=== PATIENT | male | born 1955 | race Caucasian/White ===

== ENCOUNTER → 2020-01-05 09:32 | Outpatient (CLI) | payer MEDICARE, SELFPAY ==
[2018-08-03 10:42] VITALS: BMI 19.9
[2020-01-05 09:46] LABS: Mucous, Urine 0 SEEN /hpf (<or=2+); Red Blood Cells-Urine 0 SEEN /hpf (0-5); Squamous Epithelial Cells - UA 0 SEEN /hpf (0-5)
[2020-01-05 13:00] LABS: Absolute Lymphocyte Count 1.95 X10^3/uL (0.83-4.51); Absolute Neutrophil Count 3.5 X10^3/uL (2.0-7.7); Basophil# 0.03 X10^3/uL; Basophil% 0.5 % (0-1); Eosinophil# 0.06 X10^3/uL; Hematocrit 49.5 % (40-54); Hemoglobin 15.7 g/dL (13.0-16.5); Lymphocyte # 1.95 X10^3/ul (4.0); Lymphocyte % 31.1 % (19-41); Mean Corp Hgb Conc 31.7 g/dL (32-36); Mean Corpuscular Hgb 27.6 pg (27.0-32.0); Mean Corpuscular Volume 87.1 fL (80-94); Mean Platelet Vol. 10.8 fl (6.2-12.0); Monocyte# 0.74 X10^3/uL; Monocyte% 11.8 % (0-10); NRBC Flagged by Analyzer 0 % (0-5); Neutrophil # 3.48 X10^3/uL (2.7-7.7); Neutrophil % 55.4 % (47-70); Platelet Count 267 K/mm3 (150-450); RBC Distribution Width CV 13.3 % (11.6-14.6); RBC Distribution Width SD 42.6 fl (35.1-43.9); Red Blood Count 5.68 M/mm3 (4.6-6.2); White Blood Count 6.3 K/mm3 (4.4-11.0)
[2020-01-05 13:11] LABS: ALB/GLOB Ratio 0.9 RATIO (0.9-2.4); AST(SGOT) 19 U/L (15-37); Alanine Aminotransfer ALT/SGPT 34 U/L (16-61); Albumin, Serum 3.7 g/dL (3.2-5.0); Alkaline Phosphatase 142 U/L (45-117); Anion Gap 7 (5-15); BUN 18 mg/dL (7-18); BUN/Creat Ratio 13.1 RATIO (10-20); Calcium,Total 9.4 mg/dL (8.5-10.1); Chloride 104 mmol/L (98-107); Cholesterol 199 mg/dL (200); Creatinine, Serum 1.37 mg/dL (0.70-1.30); EST Glomerular Filtration Rate 55 mL/min (>60); Est Glom Filt Rate - Afr Amer 67 mL/min (>60); Globulin 4.1 g/dL (2.2-4.2); Glucose 101 mg/dL (74-106); High Density Lipoprotein 40 mg/dL; PSA,Total - Annual Screen 0.95 ng/mL (0.00-4.00); Potassium 4.1 mmol/L (3.5-5.1); Protein, Total 7.8 g/dL (6.4-8.2); Sodium Level 139 mmol/L (136-145); Triglycerides 128 mg/dL; Very Low Density Lipoprotein 26 mg/dL (5-40)
[2020-01-05 13:17] LABS: Color, Urine Yellow (Yellow); Glucose, Dipstick Normal (Normal); Ketone-Dipstick Negative (Negative); Leukocyte Esterase-Dipstick 25 /ul (Negative); Nitrite-Dipstick Negative (Negative); Occult Blood-Urine 10 /ul (Negative); Protein-Dipstick 15 mg/dl (Negative); Specific Gravity, Urine 1.015 (1.002-1.030); Urine Bilirubin Dipstick Negative (Negative); Urine Clarity Clear (Clear); Urine Urobilinogen Normal (Normal); Urine pH 6.5 (5.0 - 8.0)
[2020-01-05 13:33] LABS: Bacteria RARE /hpf (None Seen); White Blood Cells 0-5 SEEN /hpf (0-5)
== END ==
PROVIDERS: PCP Family Medicine; Visit Provider Family Medicine
DX: R06.09 Other forms of dyspnea (principal); R80.9 Proteinuria, unspecified; R03.0 Elevated blood-pressure reading, without diagnosis of hypertension; Z12.5 Encounter for screening for malignant neoplasm of prostate
CPT/HCPCS: 36415; 80053; 80061; 81001; 84153; 85025; G0103

== ENCOUNTER 2021-04-30 21:06 | Emergency (ER) | payer MEDICARE, SELFPAY ==
[2021-04-30 21:07] VITALS: BP 152/86; PULSE 111; RESP 18; TEMP 35.5; O2SAT 98; BMI 22.1
--- NOTE | 2021-04-30 21:22 | EX.ED.GENINJ ---
HPI History of Present Illness Chief Complaint: Laceration Informant: patient Narrative Narrative: Patient presents with a scalp laceration. About 30 minutes ago he was working on a tractor when he stood up underneath of it and sustained a laceration to his scalp. He was able to control the bleeding at home. He is on no blood thinning medications. He denies any LOC, lightheadedness, dizziness or blurry vision. No neck or back pain. His last tetanus shot is unknown [facility] Medical History Back pain Home Medications cyclobenzaprine 10 mg tablet 10 mg PO TID PRN #30 tab 08/03/18 [Rx Last Taken Unknown] prednisone 20 mg tablet 20 mg PO DAILY #12 tab 08/03/18 [Rx Last Taken Unknown] Allergy/AdvReac Type Severity Reaction Status Date / Time No Known Allergies Allergy Verified 04/30/21 21:10 Surgical History History of hernia repair Social History Smoking Status: Never smoker alcohol intake: never ROS ROS ED Constitutional Constitutional ED: Denies chills or fever(s) Eyes Eyes: Denies blurry vision, change in vision or diplopia ENT ENT ED: Denies ear pain, rhinorrhea or sore throat Cardiovascular Cardiovascular: Denies chest pain or palpitations Respiratory/Chest Respiratory/Chest: Denies cough, dyspnea or sputum Gastrointestinal Gastrointestinal: Denies abdominal pain, diarrhea, nausea or vomiting Genitourinary Genitourinary ED: Denies dysuria, hematuria or urinary frequency Musculoskeletal Musculoskeletal: Denies back pain or neck pain Integumentary Reports other Details: Scalp laceration Neurologic Neurologic: Denies headache(s), numbness or weakness Psychiatric Psychiatric: Denies anxiety or depression Endocrine Endocrinology: Denies polydipsia or polyuria EXAM Physical Exam Const Vital Signs: 04/30/21 21:07 Temperature 96 F L Temperature Source Temporal Pulse Rate 111 H Respiratory Rate 18 Blood Pressure 152/86 H Blood Pressure Mean 108 Pulse Ox 98 Oxygen Delivery Method Room Air Positive well nourished and well developed General Appearance ED: well developed HEENT HEENT Narrative: There is a 3.5 cm scalp laceration in the right parietal area Eyes PERRL and EOMs intact bilaterally Neck full ROM Back/Spine no thoracic nor lumbar tenderness Back/Spine Narrative: No cervical spine tenderness Extremity normal to inspection Neuro oriented x3 and CN's II-XII intact bilaterally Sensorium / Orientation: alert Motor Exam: strength 5/5 throughout Psych mental status grossly normal Skin no rashes or lesions noted PROC Procedures Lacerations Scalp: Length: 1.38 in Depth: Skin Shape: Linear Prep: Chlorhexadine Number of Sutures/Juan: 4 Comment: Juan MDM MDM MDM Narrative Medical decision making narrative: The patient has 4 juan placed. His tetanus was updated. He will have juan out in 7 days. His neurologic exam is normal. I do not feel he requires any imaging studies at this time Discharge Plan Triage Chief Complaint: Laceration Other Complaint: Head Injury ED Provider: Kameron Frances Dx/Rx/DC Orders Clinical Impression: Laceration of scalp Instructions: ED Laceration: All Closures Prescriptions: No Action cyclobenzaprine 10 mg tablet 10 mg PO TID PRN (Reason: muscle spasm) Qty: 30 RF: 0 prednisone 20 mg tablet 20 mg PO DAILY Qty: 12 RF: 0 Primary Care Provider: Murphy Tyler Referrals: Murphy Tyler DO [Primary Care Provider] - Disposition Disposition: Home, self care
[2021-04-30] MEDS: Diphth,Pertuss(Acell),Tet Vac 0.5 ML Vial IM (21:28)
== END 2021-04-30 21:35 | disposition home or self-care (01) ==
PROVIDERS: Emergency Provider Emergency Medicine; PCP Family Medicine
DX: S01.01XA Laceration without foreign body of scalp, initial encounter (principal); W30.81XA Contact with agricultural transport vehicle in stationary use, initial encounter; Y93.9 Activity, unspecified; Y92.9 Unspecified place or not applicable
CPT/HCPCS: 12002; 90471; 90715; 99283

== ENCOUNTER → 2021-06-23 13:44 | Outpatient (CLI) | payer MEDICARE, SELFPAY ==
[2021-06-20 17:06] VITALS: BMI 22.4
--- NOTE | 2021-06-23 13:50 | RAD_ITS ---
STUDY: X-RAY - LUMBAR SPINE REASON FOR EXAM: Male, 65 years old. SEVERE L SIDE SCIATICA TECHNIQUE: For view(s) of the lumbar spine were obtained. COMPARISON: None FINDINGS: Please see the impression. RAD/L/S Spine Min 4 Views IMPRESSION: No acute fracture or subluxation in the lumbar spine. Mild multilevel lumbar spondylosis. No definite pars defect. No endplate erosion. Electronically Signed: Fran Anderson MD at 20:50 EDT Tel , Service support ,
== END ==
PROVIDERS: PCP Family Medicine; Referring Provider Family Medicine; Visit Provider Family Medicine
DX: M54.32 Sciatica, left side (principal)
CPT/HCPCS: 72110

== ENCOUNTER 2021-06-27 14:37 | Emergency (ER) | payer MEDICARE, SELFPAY ==
[2021-06-20 17:06] VITALS: BMI 22.4
[2021-06-27 14:38] VITALS: BP 101/76; PULSE 108; RESP 18; TEMP 36.2; O2SAT 97; BMI 21.7
--- NOTE | 2021-06-27 17:07 | EX.ED.DYSGE1 ---
HPI History of Present Illness Chief Complaint: Lower Extremity Injury Informant: patient and spouse/S.O. Narrative Narrative: 65-year-old male presents to the emergency department with left hip pain. Patient states that about a week ago he was on his riding lawnmower when he got pain in the left low back. He states the pain radiates down into the left hip and posteriorly down the leg. It is worse with prolonged sitting and standing. He states that he had x-rays done of his lumbar spine which I reviewed and shows mild multilevel lumbar spondylosis. Otherwise negative. He was started on Medrol Dosepak as well as 100 mg 3 times daily as needed of gabapentin. He went saw his primary care doctor this past Wednesday was given Flexeril and Dilaudid. He states that none of that is helping. He states he called back and into the office and they said if he got worse to come to emergency. He states that they wanted to do an MRI but has not been approved by insurance yet. He denies any bowel or bladder symptoms. No muscle strength loss. No sensory loss. PFSH PFS Medical History Back pain Home Medications gabapentin 300 mg PO TID #30 cap 06/27/21 [Rx Last Taken Unknown] ketorolac 10 mg PO Q8H PRN 5 Days #15 tab 06/27/21 [Rx Last Taken Unknown] oxycodone-acetaminophen 1 tab PO Q6H PRN PRN 5 Days #20 tablet 06/27/21 [Rx Last Taken Unknown] prednisone See Rx Instructions .ROUTE .COMPLEX #24 tablet 06/27/21 [Rx Last Taken Unknown] Allergy/AdvReac Type Severity Reaction Status Date / Time No Known Allergies Allergy Verified 06/27/21 14:38 Surgical History History of hernia repair Social History Smoking Status: Never smoker alcohol intake: never ROS ROS ED Constitutional Constitutional ED: Denies chills or weight loss Eyes Eyes: Denies change in vision or diplopia ENT ENT ED: Denies ear pain, rhinorrhea or sore throat Cardiovascular Cardiovascular: Denies chest pain, orthopnea, palpitations or racing heartbeat Respiratory/Chest Respiratory/Chest: Denies cough, dyspnea or orthopnea Gastrointestinal Gastrointestinal: Denies abdominal pain, diarrhea, nausea or vomiting Genitourinary Genitourinary ED: Denies dysuria, hematuria or urinary frequency Musculoskeletal Musculoskeletal: Reports back pain and other Details: Left leg and hip pain ; Denies arthralgias or myalgias Integumentary Denies abscess or rash Neurologic Neurologic: Denies headache(s) or weakness Psychiatric Psychiatric: Denies anxiety, depression, suicidal ideation or suicidal thoughts Endocrine Endocrinology: Denies polydipsia, polyphagia or polyuria Allergic/Immunologic Allergic/Immunologic ED: Denies mouth swelling, tongue swelling or urticaria EXAM Physical Exam Const Vital Signs: 06/27/21 14:38 Temperature 97.1 F L Temperature Source Temporal Pulse Rate 108 H Respiratory Rate 18 Blood Pressure 101/76 Blood Pressure Mean 84 Pulse Ox 97 Oxygen Delivery Method Room Air Positive well nourished and well developed General Appearance ED: well developed HEENT Reports normocephalic, head/scalp atraumatic and moist mucous membranes Eyes PERRL and EOMs intact bilaterally Neck no lymphadenopathy, supple and no JVD Resp normal respiratory effort and clear to auscultation bilaterally Cardio regular rate, regular rhythm and no murmurs GI normal to inspection, nondistended, normoactive bowel sounds and non-tender Palpation: soft Back/Spine no CVA tenderness and normal ROM Extremity normal to inspection Extremity Narrative: There is no pain with movement of the hip prior to palpation. General Extremety ED: Negative for edema General Extremity: Negative for edema Neuro oriented x3, CN's II-XII intact bilaterally and no sensory deficits noted Sensorium / Orientation: alert Motor Exam: strength 5/5 throughout Psych mental status grossly normal Mood & Affect: Negative for depressed or tearful Skin no rashes or lesions noted and no wounds MDM MDM MDM Narrative Medical decision making narrative: At this point I do not find a need for an emergent MRI. asked if there is anything he can take for pain and he is already on Dilaudid. We could add an anti-inflammatory and try prednisone as he has been done with the Medrol Dosepak for a while. Can also write for some Percocet. Would increase his gabapentin. I can refer him to spine surgery for their evaluation. Discharge Plan Triage Chief Complaint: Lower Extremity Injury ED Provider: Raji Tristan Dx/Rx/DC Orders Clinical Impression: Acute left lumbar radiculopathy Instructions: ED Sciatica Prescriptions: New oxycodone-acetaminophen [oxycodone-acetaminophen] 1 TABLET tablet 1 tab PO Q6H PRN PRN (Reason: pain) 5 Days Qty: 20 RF: 0 ketorolac 10 mg tablet 10 mg PO Q8H PRN (Reason: pain) 5 Days Qty: 15 RF: 0 prednisone 20 MG tablet See Rx Instructions .ROUTE .COMPLEX Qty: 24 RF: 0 gabapentin 300 mg capsule 300 mg PO TID Qty: 30 RF: 0 Primary Care Provider: Murphy Tyler Referrals: Raji Hampton MD [STAFF PHYSICIAN] - As soon as possible Murphy Tyler DO [Primary Care Provider] - Disposition Disposition: Home, Self Care
[2021-06-27] MEDS: Ketorolac 60 MG/2 ML Vial IM (17:26)
[2021-06-27] MEDS: morphine 10 MG/ML Syringe IM (17:26)
[2021-06-27 17:59] VITALS: BP 102/56; PULSE 92; RESP 18; O2SAT 100
== END 2021-06-27 18:00 | disposition home or self-care (01) ==
PROVIDERS: Emergency Provider Emergency Medicine; PCP Family Medicine
DX: M47.26 Other spondylosis with radiculopathy, lumbar region (principal)
CPT/HCPCS: 96372; 99282

== ENCOUNTER 2021-07-02 09:59 | Emergency (ER) | payer MEDICARE, SELFPAY ==
[2021-07-02 10:00] VITALS: PULSE 120; RESP 16; TEMP 36.6; O2SAT 97; BMI 22.1
[2021-07-02] MEDS: 0.9% Normal Saline 1,000 ML 1000 ML IV (10:38)
[2021-07-02] MEDS: Ondansetron 4 MG/2 ML Vial IV (10:38)
[2021-07-02 10:51] LABS: Anion Gap 7 (5-15); BUN 34 mg/dL (7-18); BUN/Creat Ratio 28.3 RATIO (10-20); Calcium,Total 10.3 mg/dL (8.5-10.1); Chloride 93 mmol/L (98-107); EST Glomerular Filtration Rate 64 mL/min (>60); Est Glom Filt Rate - Afr Amer 78 mL/min (>60); Estimated Creatinine Clearance 63.64 ml/min; Glucose 136 mg/dL (74-106); Potassium 4.7 mmol/L (3.5-5.1); Sodium Level 128 mmol/L (136-145)
[2021-07-02 11:05] LABS: Absolute Lymphocyte Count 1.58 X10^3/uL (0.83-4.51); Absolute Neutrophil Count 19.8 X10^3/uL (2.0-7.7); Basophil# 0.04 X10^3/uL; Basophil% 0.2 % (0-1); Eosinophil# 0.01 X10^3/uL; Hematocrit 42.7 % (40-54); Hemoglobin 14.2 g/dL (13.0-16.5); Lymphocyte # 1.58 X10^3/ul (0.83-4.51); Lymphocyte % 6.6 % (19-41); Mean Corp Hgb Conc 33.3 g/dL (32-36); Mean Corpuscular Hgb 28.3 pg (27.0-32.0); Mean Corpuscular Volume 85.1 fL (80-94); Mean Platelet Vol. 10.3 fl (6.2-12.0); Monocyte# 2.36 X10^3/uL; Monocyte% 9.8 % (0-10); NRBC Flagged by Analyzer 0 % (0-5); Neutrophil # 19.84 X10^3/uL (2.7-7.7); Neutrophil % 82.6 % (47-70); POSITIVE DIFFERENTIAL YES; Platelet Count 280 K/mm3 (150-450); RBC Distribution Width CV 12.5 % (11.6-14.6); RBC Distribution Width SD 38.3 fl (35.1-43.9); Red Blood Count 5.02 M/mm3 (4.6-6.2)
[2021-07-02 11:27] LABS: Differential Indicated SCAN CRITERIA MET
[2021-07-02 12:15] VITALS: BP 146/83; PULSE 103; RESP 21; O2SAT 98
--- NOTE | 2021-07-02 12:39 | CT_ITS ---
STUDY: CT ABDOMEN AND PELVIS WITH CONTRAST REASON FOR EXAM: Male, 65 years old. Abd pain -- IV PO Contrast. 2 week history of vomiting. RADIATION DOSAGE (If Supplied By Facility): CTDIvol = ( 11.88 ) mGy, DLP = ( 557.90 ) mGycm TECHNIQUE: Transaxial images were obtained from the dome of the diaphragm to the symphysis pubis with oral contrast. Oral and amp; IV Gastrografin and amp; 100mL Isovue-370 was administered. Sagittal and coronal images were reconstructed. Individualized dose optimization techniques were used for this CT. COMPARISON: Comparison is made with prior examination of 12/14/2014. FINDINGS: Tiny pleural effusions with bibasilar atelectasis and/or infiltrates. The visualized portions of the heart are within normal limits. There is decreased attenuation of the liver consistent with steatosis. Stable hepatic cysts. The largest cyst measures 2.9 cm x 2.2 cm. This lies in the left lobe of the liver. Normal gallbladder and extrahepatic biliary system. Normal spleen. Normal pancreas. Normal bilateral adrenal glands. Normal right kidney. There is a 3 mm nonobstructive calculus in the midpole calyx of the left kidney. Small bilateral renal parapelvic cysts. There is a small hiatal hernia. Normal small intestine. Moderate amount of fecal material is seen throughout the colon. The appendix is visualized and appears normal. Normal abdominal aorta. Normal inferior vena cava. Normal retroperitoneum. Normal urinary bladder. There are prostatic calcifications. Normal abdominal wall. Normal osseous structures. CT/Abdomen/Pelvis WITH Contrast IMPRESSION: Stable hepatic cysts. Fatty infiltration of the liver. Stable nonobstructive left intrarenal calculus. Stable bilateral parapelvic cysts. Tiny bilateral pleural effusions with bibasilar atelectasis and/or infiltrates. Electronically Signed: Ryan Davis MD at 15:14 EDT , Service support ,
[2021-07-02] MEDS: 0.9% Normal Saline 1,000 ML 150 ML IV (13:37)
[2021-07-02 14:12] VITALS: BP 158/88
--- NOTE | 2021-07-02 14:42 | EDS_ITS ---
HPI History of Present Illness Chief Complaint: Nausea/Vomiting Informant: patient Onset/Context/Timing Onset: Days Context: Gradual Onset Current Severity: Moderate Maximum Severity: Moderate Narrative Narrative: Patient present secondary to nausea and vomiting. Patient has been having problems with sciatica recently. He states he has had nausea for a couple weeks. After being seen in the emergency room on the and being given different pain medication he has not had vomiting and states the nausea is worse. He states he is unable to keep anything down. He is concerned he is dehydrated. [facility] Medical History Back pain Home Medications gabapentin 300 mg PO TID #30 cap 06/27/21 [Rx Last Taken Unknown] ketorolac 10 mg PO Q8H PRN 5 Days #15 tab 06/27/21 [Rx Last Taken Unknown] oxycodone-acetaminophen 1 tab PO Q6H PRN PRN 5 Days #20 tablet 06/27/21 [Rx Last Taken Unknown] prednisone See Rx Instructions .ROUTE .COMPLEX #24 tablet 06/27/21 [Rx Last Taken Unknown] ondansetron 4 mg PO Q8H PRN #10 tab 07/02/21 [Rx Last Taken Unknown] Allergy/AdvReac Type Severity Reaction Status Date / Time No Known Allergies Allergy Verified 07/02/21 10:03 Surgical History History of hernia repair Social History Smoking Status: Never smoker alcohol intake: never ROS ROS ED Constitutional Constitutional ED: Denies chills or fever(s) Eyes Eyes: Denies change in vision ENT ENT ED: Denies sore throat Cardiovascular Cardiovascular: Denies chest pain Respiratory/Chest Respiratory/Chest: Denies cough or dyspnea Gastrointestinal Gastrointestinal: Reports abdominal pain, nausea and vomiting; Denies diarrhea Genitourinary Genitourinary ED: Denies dysuria Musculoskeletal Musculoskeletal: Denies back pain Integumentary Denies rash Neurologic Neurologic: Reports weakness; Denies headache(s) Psychiatric Psychiatric: Denies anxiety or depression Allergic/Immunologic Allergic/Immunologic ED: Denies urticaria EXAM Physical Exam Const Vital Signs: 07/02/21 10:00 07/02/21 12:15 08/18/21 14:12 Temperature 97.8 F Temperature Source Temporal Pulse Rate 120 H 103 H Respiratory Rate 16 21 H Blood Pressure 146/83 H 158/88 H Blood Pressure Mean 104 111 Pulse Ox 97 98 Oxygen Delivery Method Room Air Room Air Positive well nourished and well developed General Appearance ED: well developed HEENT Reports normocephalic and head/scalp atraumatic Eyes PERRL and EOMs intact bilaterally Neck supple Chest Wall inspection of chest normal and palpation of chest normal Resp normal respiratory effort and clear to auscultation bilaterally Cardio regular rhythm Rate: tachycardic GI Auscultation: hypoactive bowel sounds Palpation: soft and tender other (Mild diffuse tenderness to palpation.); Negative for guarding or rebound tenderness present Extremity normal to inspection Neuro oriented x3 Neuro Narrative: No focal neuro deficits. Sensorium / Orientation: alert Psych mental status grossly normal Skin no rashes or lesions noted MDM MDM MDM Narrative Medical decision making narrative: Patient is given IV fluids and Zofran. Lab work is obtained. Lab Data Attestation: I reviewed the patient's lab results. Labs: Laboratory Results - last 24 hr 07/02/21 07/02/21 07/02/21 10:27 10:27 10:58 WBC Cancelled 24.0 H Corrected WBC Cancelled RBC Cancelled 5.02 Hgb Cancelled 14.2 Hct Cancelled 42.7 MCV Cancelled 85.1 MCH Cancelled 28.3 MCHC Cancelled 33.3 RDW Std Deviation Cancelled 38.3 RDW Coeff of Stuart Cancelled 12.5 Plt Count Cancelled 280 MPV Cancelled 10.3 Immature Gran % (Auto) Cancelled 0.800 Neut % (Auto) Cancelled 82.6 H Lymph % (Auto) Cancelled 6.6 L [place] % (Auto) Cancelled 9.8 Eos % (Auto) Cancelled 0.0 Baso % (Auto) Cancelled 0.2 Absolute Neuts (auto) Cancelled 19.8 H Absolute Lymphs (auto) Cancelled 1.58 Total Counted Cancelled Neutrophils % (Manual) Cancelled Band Neutrophils % Cancelled Lymphocytes % (Manual) Cancelled Monocytes % (Manual) Cancelled Eosinophils % (Manual) Cancelled Basophils % (Manual) Cancelled Metamyelocytes % Cancelled Myelocytes % Cancelled Promyelocytes % Cancelled Blast Cells % Cancelled Plasma Cell % (Manual) Cancelled Other Cells % Cancelled Nucleated RBC % Cancelled 0 Nucleated RBCs/100 WBC Cancelled Differential Comment Cancelled COMMENT Diff Path Review Cancelled May foll Hypersegmented Neuts Cancelled Atypical Lymphocytes Cancelled Reactive Lymphocytes Cancelled Smudge Cells Cancelled Toxic Granulation Cancelled Toxic Vacuolation Cancelled Dohle Bodies Cancelled Lito Rods Cancelled Platelet Estimate Cancelled Plt Morphology Comment Cancelled RBC Morphology Cancelled Polychromasia Cancelled Hypochromasia Cancelled Poikilocytosis Cancelled Basophilic Stippling Cancelled Anisocytosis Cancelled Microcytosis Cancelled Macrocytosis Cancelled Spherocytes Cancelled Sickle Cells Cancelled Target Cells Cancelled Tear Drop Cells Cancelled Ovalocytes Cancelled Stomatocytes Cancelled Serrano-[place] Bodies Cancelled Beatrice Cells Cancelled Bite Cells Cancelled Crenated Cell Cancelled Acanthocytes (Spur) Cancelled Rouleaux Cancelled Schistocytes Cancelled Sodium 128 L Potassium 4.7 Chloride 93 L Carbon Dioxide 28.0 Anion Gap 7 BUN 34 H Creatinine 1.20 Estim Creat Clear Calc 63.64 Est GFR (MDRD) Af Amer 78 Est GFR (MDRD) Non-Af 64 BUN/Creatinine Ratio 28.3 H Glucose 136 H Calcium 10.3 H Radiography Diagnostic Testing: Radiology Impression Abdomen/Pelvis CT 07/02/21 12:39 IMPRESSION: Stable hepatic cysts. Fatty infiltration of the liver. Stable nonobstructive left intrarenal calculus. Stable bilateral parapelvic cysts. Tiny bilateral pleural effusions with bibasilar atelectasis and/or infiltrates. Electronically Signed: Ryan Davis MD at 15:14 EDT , Service support , Treatment and Re-Evaluation Comments:: Patient's white blood cell count is elevated at 24, however the patient is currently on steroids and has been vomiting. This may be reactive in nature. Patient's sodium level is low at 128. I do not have recent labs to compare to. He is given normal saline 1 L bolus followed by 150/h. On repeat examination patient's abdomen is soft with mild tenderness. No guarding or rebound. CT scan with p.o. and IV contrast is obtained and reveals no acute cause of leukocytosis. Test results discussed with patient and at bedside. I will place a fentanyl patch on the patient so that he can try to cut back on his oral pain medication as it is causing significant nausea. He is currently on Prilosec and encouraged him to continue this. I will also write him for Rey. I recommended taking the nausea medication, waiting 1/2-hour, then taking his pain medication with food. Return instructions are provided. Discharge Plan Triage Chief Complaint: Nausea/Vomiting ED Provider: Desire Brown Dx/Rx/DC Orders Clinical Impression: Vomiting, Sciatica Instructions: ED Sciatica, ED Vomiting (Adult) Prescriptions: New ondansetron 4 mg tablet,disintegrating 4 mg PO Q8H PRN (Reason: nausea and vomiting) Qty: 10 RF: 0 No Action oxycodone-acetaminophen [oxycodone-acetaminophen] 1 TABLET tablet 1 tab PO Q6H PRN PRN (Reason: pain) 5 Days Qty: 20 RF: 0 ketorolac 10 mg tablet 10 mg PO Q8H PRN (Reason: pain) 5 Days Qty: 15 RF: 0 prednisone 20 MG tablet See Rx Instructions .ROUTE .COMPLEX Qty: 24 RF: 0 gabapentin 300 mg capsule 300 mg PO TID Qty: 30 RF: 0 Primary Care Provider: Murphy Tyler Referrals: Murphy Tyler DO [Primary Care Provider] - As soon as possible Disposition Disposition: Home, Self Care
[2021-07-02 15:45] VITALS: PULSE 98; RESP 14; O2SAT 98
[2021-07-03 11:49] LABS: Pathologist Review Reviewed
== END 2021-07-02 16:31 | disposition home or self-care (01) ==
PROVIDERS: Emergency Provider Emergency Medicine; PCP Family Medicine
DX: R11.2 Nausea with vomiting, unspecified (principal); R10.9 Unspecified abdominal pain; M54.30 Sciatica, unspecified side
CPT/HCPCS: 74177; 80048; 85025; 96361; 96374; 99285; J7030; Q9967; A4216; J2405

== ENCOUNTER 2021-08-18 09:00 | Outpatient (RCR) | payer MEDICARE, SELFPAY ==
--- NOTE | 2021-07-25 09:09 | HP.PTEVAL_ITS ---
Patient's Visit Information HILDA PASTOR is a 66 year old M referred to Physical Therapy by Dr. Murphy Tyler DO with a diagnosis of L SCIATICA. Date of Evaluation: 07/25/21 Physical Therapist: Suzanne Hoffman PT, Cert MDT - Visit Plan Frequency: 2-3x /Week Duration: 4-6 Weeks Plan: POSTURE CORRECTION/STRENGTHENING, INSTRUCTION IN APPROPRIATE BODY MECHANICS AND ACTIVITY MODIFICATIONS. DLS STARTING WITH A NEUTRAL SPINE PROGRESSING ROM TOLERATED. OTILIO LE ROM, STRETCHING AND STRENGTHENING. HEP INSTRUCTION. 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 Disability: NO. Present symptoms: L HIP, THIGH, LEG AND FOOT PAIN, NUMBNESS AND TINLGING. PATIENT DENIES RIGHT LE SX'S. Present since: ABOUT 6 WEEKS AGO. Pain Scale: WORST 8/10, LEAST 4/10. Currently: 4/10. Commenced as a result of: NO APPARE NT REASON. Symptoms at onset: WOKE UP IN THE MIDDLE OF THE NIGHT AND WHOLE LEFT LEG WAS HURTING. WENT TO WALK IN CLINIC THAT DAY BECAUSE THE PAIN WAS SO BAD. 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 Better: LYING DOWN ON THE COUCH. Disturbed sleep: YES. Previous history/Previous treatment: NO BACK OR HIP SX'S OR INJECTIONS. NO CHIROPRACTOR. Treatment this episode: MEDICATIONS (SOME SIDE EFFECTS AND GOT DEHYDRATED AND HAD TO GET FLUIDS AT THE HOSPITAL). HAS STOPPED ALL MEDICATIONS UNTIL LAST NIGHT WHEN HIS SIDE STARTED HURTING SO BAD HE TOOK SOME MEDICATION. PATIENT REPORTS HE WAS REFERRED TO PAIN MGMT TOO AND THEY CALLED TO GET HIM AN NAVEED'T BUT HE WANTED TO TRY PT FIRST. Coughing/sneezing/straining: NEGATIVE. Gait: I DON'T WANT TO PUT A LOT OF WEIGHT ON MY LEFT SIDE IF I CAN HELP IT. TIME AND DISTANCE LIMITED. Difficulty initiating urination: NO. Accidents: NO. Unexplained weight loss: NO BUT LOST WEIGHT RECENTLY THAT PATIENT RELATES TO MEDICATION SIDE EFFECTS. Imaging: RECENT LUMBAR X-RAYS AND PELVIC/ABDOMINAL CAT SCAN - SEE [facility] EMR. PMH: UNREMARKABLE. H/O KIDNEY STONE PROBLEMS AND PATIENT FEELS LIKE THAT IS WHAT CAUSED HIS SIDE PAIN LAST NIGHT. OTHER: PATIENT REPORTS HE HAS BEEN IN TOUCH WITH DR. TYLER ON THE PHONE SEVERAL TIMES ABOUT HIS SX'S AND MOST RECENTLY WEDNESDAY. - Objective Sitting/Standing Posture: POOR. LEANS TO THE RIGHT SIDE IN SITTING. FH. RS'S. Lordosis: REDUCED. Lateral shift: NO. Relevant shift: N/A. Active Correction of posture: NE. Other Observations: THIS PATIENT AMBULATES INDEP'LY INTO PT WITH A MILD LIMP ON THE RIGHT LE AND NO ASSISTIVE DEVICES. FAIR CADANCE. Motor deficit: OTILIO LE STRENGTH GROSSLY 5/5 WITH MMT'ING EXCEPT RIGHT HIP 4/5, LEFT HIP 4-/5. Sensory deficit: DECREASED LEFT LE LIGHT TOUCH SENSATION COMPARED TO RIGHT. ROM deficit: TIGHT OTILIO HIP FLEXORS, HS'S AND GASTROC SOLEUS COMPLEX'S. Dural Signs: POSITIVE LLE. Lumbar mvmt loss: flex - MOD. ext - TRAVIS. R SG - TRAVIS. L SG - TRAVIS. PATIENT C/O PULLING IN L LE WITH LUMBAR ROM TESTING ALL PLANES. Core strength: POOR. Palpation: NO ACUTE THORACIC, LUMBAR OR HIP TENDERNESS. PATIENT DENIES ANY FALLS. TREATMENT: NEUROMUSCULAR REEDUCATION - RETRAINING OF MVMT AND POSTURE FOR SITTING, LYING AND STANDING ACTIVITIES. - Balance/Special Test Scores Oswestry Low Back Score: 18 - Goals Goal 1:: DECREASE C/O LLE SX'S Goal Time Frame: 4-6 Weeks Goal 2:: IMPROVE LIFTING, WALKING, SITTING, STANDING, SOCIAL LIFE, TRAVEL AND WORK/HOMEMAKING FUNCTION Goal Time Frame: 4-6 Weeks Goal 3:: INSTRUCT IN PROPHYLAXIS Goal Time Frame: 4-6 Weeks - Anticipated Interventions Patient/Client Instruction: Educate patient on: Condition, Plan of Care, Risk Factors For the Purpose of:: To improve self management Therapeutic Exercise to Include: Strength training, Endurance training, Body mechanics, Postural training, Flexibilty training, Gait and locomotor training, Neuromotor development, In an aquatic setting, Dynamic Lumbar Stabilization For the Purpose of:: To decrease pain, To improve muscle performance and motor function, To increase tolerance to activity/condition/position, To improve ability of physical actions for home/community/work/leisure, To improve gait and locomotor functions Thank you for the opportunity to evaluate your patient. For Medicare and Medicare HMO plans, please review the plan of care and approve it. It will need to be FAXED BACK to us at [phone] for Medicare purposes. For Medicare only, by signing this I certify the plan of care. Please let me know if there are questions or concerns regarding this plan of care. Physician Signature: Date:
--- NOTE | 2021-08-18 09:31 | HP.PTREVAL_ITS ---
Dr. 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 Please see the progress note below for an update on the physical therapy plan of care! Subjective: PATIENT REPORTS HE COULDN'T SIT AT ALL BEFORE STARTING THERAPY. I CAN SIT AND WALK SOME NOW BUT I CAN'T TRAVEL. PATIENT REPORTS HE IS ALSO GE TTING SOME OF HIS STRENGTH BACK SINCE ONSET OF WEAKNESS THAT HE RELATES TO MEDICINE. PATIENT REPORTS HE CAN'T WALK MUCH THOUGH. STATES HE WANTED TO GO TO BUT IT WAS HURTING TOO MUCH TO EVEN GO. STATES THE MORE HE WALKS THE WORSE IT GETS. PATIENT REPORTS HE DOESN'T THINK THERAPY CAN HELP ANYMORE. STATES THE PAIN IS STILL LIMITING HIS FUNCTION AND THERAPY. CONSULT WITH PAIN MGMT PENDING WEDNESDAY. STATES HE WANTS TO HAVE THAT CONSULT BEFORE CONSIDERING MORE PT. THIS STARTED ABOUT THE BEGINNING OF JUN 2021 FOR NO APPARENT REASON. PATIENT REPORTS HIS BACK STILL ISN'T REALLY BOTHERING HIM BUT HIS LEFT LEG ALWAYS HURTS AND HIS FOOT IS ALWAYS NUMB. STATES THE MORE HE IS ON IT THE MORE IT HURTS AND HE HIS THIGH AND CALF CRAMP UP. Objective/Function: PATIENT WAS SEEN TODAY FOR RE-ASSESSMENT OF PROGRESS TOWARD THE SET PT GOALS AND THE NEED FOR FURTHER PHYSICAL THERAPY VS READINESS FOR DISCHARGE. PHYSICIAN RE-ASSESSMENT RECOMMENDED BASED ON CONTINUED LLE SX'S. PATIENT HAS MADE A LITTLE PROGRESS WITH PT TOWARD SET GOALS BUT IS STILL REPORTING SIGNIFICANT PAIN AND STILL DEMO'S SIGNIFICANT LLE SX'S. PATIENT WOULD LIKE TO STOP PT UNTIL PHYSICIAN RE-ASSESSEMENT. I AM GOING TO GO AHEAD AND DISCHARGE HIS CHART FOR NOW BUT WE WOULD BE HAPPY TO RESUME PT IN THE FUTURE NEEDED. UPON EXAM TODAY: SENSATION: L LATERAL THIGH, LEG AND FOOT DECREASED LIGHT TOUCH SENSATION. LE STRENGTH: L HIP 4-/5. Dural Signs: POSITIVE LLE. Lumbar mvmt loss: flex - MOD. ext - TRAVIS. R SG - TRAVIS. L SG - TRAVIS. PATIENT C/O PULLING IN L LE WITH LUMBAR ROM TESTING ALL PLANES. Plan Plan: D/C Balance/Gait/Functional tests - Balance/Special Test Scores Oswestry Low Back Score: 16 Goals Goal 1:: DECREASE C/O LLE SX'S Goal Time Frame: 4-6 Weeks Goal Progress: Progressing Goal 2:: IMPROVE LIFTING, WALKING, SITTING, STANDING, SOCIAL LIFE, TRAVEL AND WORK/HOMEMAKING FUNCTION Goal Time Frame: 4-6 Weeks Goal Progress: Progressing Goal 3:: INSTRUCT IN PROPHYLAXIS Goal Time Frame: 4-6 Weeks Goal Progress: Progressing Anticipated Interventions Patient/Client Instruction: Educate patient on: Condition, Plan of Care, Risk Factors For the Purpose of:: To improve self management Therapeutic Exercise to Include: Strength training, Endurance training, Body mechanics, Postural training, Flexibilty training, Gait and locomotor training, Neuromotor development, In an aquatic setting, Dynamic Lumbar Stabilization For the Purpose of:: To decrease pain, To improve muscle performance and motor function, To increase tolerance to activity/condition/position, To improve ability of physical actions for home/community/work/leisure, To improve gait and locomotor functions Please do not hesitate to contact me at [phone] by phone or if you have questions or concerns regarding this new plan of care! Sincerely, Suzanne Hoffman, PT, Cert MDT
--- NOTE | 2021-08-18 09:31 | HP.PTDCSUM ---
It has been my pleasure to treat HILDA PASTOR referred by Dr. Murphy Tyler DO, with the diagnosis of L SCIATICA for a total of 11 visit(s). Discharge Date: 08/18/21 Please see the following information for a summary of their discharge status. Subjective: PATIENT REPORTS HE COULDN'T SIT AT ALL BEFORE STARTING THERAPY. I CAN SIT AND WALK SOME NOW BUT I CAN'T TRAVEL. PATIENT REPORTS HE IS ALSO GETTING SOME OF HIS STRENGTH BACK SINCE ONSET OF WEAKNESS THAT HE RELATES TO MEDICINE. PATIENT REPORTS HE CAN'T WALK MUCH THOUGH. STATES HE WANTED TO GO TO BUT IT WAS HURTING TOO MUCH TO EVEN GO. STATES THE MORE HE WALKS THE WORSE IT GETS. PATIENT REPORTS HE DOESN'T THINK THERAPY CAN HELP ANYMORE. STATES THE PAIN IS STILL LIMITING HIS FUNCTION AND THERAPY. CONSULT WITH PAIN MGMT PENDING WEDNESDAY. STATES HE WANTS TO HAVE THAT CONSULT BEFORE CONSIDERING MORE PT. THIS STARTED ABOUT THE BEGINNING OF JUN 2021 FOR NO APPARENT REASON. PATIENT REPORTS HIS BACK STILL ISN'T REALLY BOTHERING HIM BUT HIS LEFT LEG ALWAYS HURTS AND HIS FOOT IS ALWAYS NUMB. STATES THE MORE HE IS ON IT THE MORE IT HURTS AND HE HIS THIGH AND CALF CRAMP UP. L LE Pain Intensity (Out of 10): 0 % Improvement: 50 Objective/Function: PATIENT WAS SEEN TODAY FOR RE-ASSESSMENT OF PROGRESS TOWARD THE SET PT GOALS AND THE NEED FOR FURTHER PHYSICAL THERAPY VS READINESS FOR DISCHARGE. PHYSICIAN RE-ASSESSMENT RECOMMENDED BASED ON CONTINUED LLE SX'S. PATIENT HAS MADE A LITTLE PROGRESS WITH PT TOWARD SET GOALS BUT IS STILL REPORTING SIGNIFICANT PAIN AND STILL DEMO'S SIGNIFICANT LLE SX'S. PATIENT WOULD LIKE TO STOP PT UNTIL PHYSICIAN RE-ASSESSEMENT. I AM GOING TO GO AHEAD AND DISCHARGE HIS CHART FOR NOW BUT WE WOULD BE HAPPY TO RESUME PT IN THE FUTURE NEEDED. UPON EXAM TODAY: SENSATION: L LATERAL THIGH, LEG AND FOOT DECREASED LIGHT TOUCH SENSATION. LE STRENGTH: L HIP 4-/5. Dural Signs: POSITIVE LLE. Lumbar mvmt loss: flex - MOD. ext - TRAVIS. R SG - TRAVIS. L SG - TRAVIS. PATIENT C/O PULLING IN L LE WITH LUMBAR ROM TESTING ALL PLANES. Goal 1:: DECREASE C/O LLE SX'S Goal Progress: Progressing Goal 2:: IMPROVE LIFTING, WALKING, SITTING, STANDING, SOCIAL LIFE, TRAVEL AND WORK/HOMEMAKING FUNCTION Goal Progress: Progressing Goal 3:: INSTRUCT IN PROPHYLAXIS Goal Progress: Progressing Plan: D/C If there are questions or concerns regarding this patient's physical therapy, please feel free to call me at [phone]. Thank you for the referral of this patient. Sincerely, Suzanne Hoffman, PT, Cert MDT Balance/Gait/Functional tests - Balance/Special Test Scores Oswestry Low Back Score: 16
== END 2021-08-18 19:00 | disposition home or self-care (01) ==
LOC: PT 09:00
PROVIDERS: PCP Family Medicine; Referring Provider Family Medicine; Visit Provider Family Medicine
DX: M54.32 Sciatica, left side (principal); M54.16 Radiculopathy, lumbar region
CPT/HCPCS: 97110; 97112; 97162; 97164; 97530

== ENCOUNTER → 2021-09-13 07:53 | Outpatient (CLI) | payer MEDICARE, SELFPAY ==
--- NOTE | 2021-09-13 08:30 | MRI_ITS ---
STUDY: MRI LUMBAR SPINE WITHOUT CONTRAST REASON FOR EXAM: Male, 66 years old. LEFT foot drop TECHNIQUE: Standardized fat and water weighted pulse sequences were obtained in the sagittal and axial planes. COMPARISON: X-ray dated 06/23/2021 FINDINGS: Normal lumbar lordosis. There is no substantial scoliosis. Normal conus medullaris that terminates at the L1. L1-2: There is minimal disc space narrowing and endplate spondylosis. There is no significant disc herniation, central canal or foraminal stenosis. Mild facet arthropathy. L2-3: There is minimal disc space narrowing and endplate spondylosis. There is no significant disc herniation, central canal or foraminal stenosis. Mild facet arthropathy. L3-4: There is minimal disc space narrowing and endplate spondylosis. There is no significant disc herniation, central canal or foraminal stenosis. Mild facet arthropathy. L4-5: There is mild disc space narrowing and endplates spondylosis. Mild disc bulge and facet arthropathy without significant central canal or foraminal stenosis. L5-S1: There is mild disc space narrowing and endplates spondylosis mild disc bulge and small left paracentral protrusion with moderate left lateral disc narrowing. Mild facet arthropathy. Minimal right and mild left foraminal stenosis. Normal visualized sacral ala. MRI/Spine Lumbar (Routine) IMPRESSION: L5/S1: Disc protrusion with moderate left lateral recess narrowing. Electronically Signed: Kaveh Craig MD at 8:11 EDT Tel , Service support ,
== END ==
PROVIDERS: PCP Family Medicine; Referring Provider Anesthesiology Pain Medicine; Visit Provider Anesthesiology Pain Medicine
DX: M51.17 Intervertebral disc disorders with radiculopathy, lumbosacral region (principal)
CPT/HCPCS: 72148

== ENCOUNTER 2022-08-18 10:57 | Emergency (ER) | payer MEDICARE, SELFPAY ==
[2022-08-18] VITALS (7 sets, daily range): BP systolic 124–156; BP diastolic 59–87; PULSE 80–109; RESP 16–32; TEMP 36.8; O2SAT 95–100; BMI 20.3
--- NOTE | 2022-08-18 11:17 | ED.RN ---
pt states that if he doesnt move is pain is a 7 or 8, if he moves it gets worse.
[2022-08-18 11:18] LABS: Absolute Lymphocyte Count 1.42 X10^3/uL (0.83-4.51); Basophil# 0.03 X10^3/uL; Basophil% 0.2 % (0-1); Eosinophil# 0.01 X10^3/uL; Eosinophils% 0.1 % (0-5); Lymphocyte # 1.42 X10^3/ul (0.83-4.51); Lymphocyte % 9.6 % (19-41); Mean Corp Hgb Conc 32.7 g/dL (32-36); Mean Corpuscular Hgb 28.1 pg (27.0-32.0); Mean Corpuscular Volume 86.1 fL (80-94); Mean Platelet Vol. 10.5 fl (6.2-12.0); Monocyte# 1.31 X10^3/uL; Monocyte% 8.8 % (0-10); NRBC Flagged by Analyzer 0 % (0-5); Neutrophil # 12.01 X10^3/uL (2.7-7.7); Neutrophil % 80.8 % (47-70); Platelet Count 258 K/mm3 (150-450); RBC Distribution Width CV 13.1 % (11.6-14.6); RBC Distribution Width SD 40.7 fl (35.1-43.9); Red Blood Count 5.69 M/mm3 (4.6-6.2); White Blood Count 14.9 K/mm3 (4.4-11.0)
[2022-08-18 11:32] LABS: Anion Gap 8 (5-15); BUN 13 mg/dL (7-18); BUN/Creat Ratio 10.6 RATIO (10-20); Calcium,Total 9.7 mg/dL (8.5-10.1); Chloride 102 mmol/L (98-107); Creatinine, Serum 1.23 mg/dL (0.70-1.30); EST Glomerular Filtration Rate 62 mL/min (>60); Est Glom Filt Rate - Afr Amer 75 mL/min (>60); Estimated Creatinine Clearance 55.32 ml/min; Glucose 131 mg/dL (74-106); Potassium 4.1 mmol/L (3.5-5.1); Sodium Level 136 mmol/L (136-145)
--- NOTE | 2022-08-18 11:35 | CT_ITS ---
STUDY: CT ABDOMEN AND PELVIS WITH CONTRAST REASON FOR EXAM: Male, 67 years old. Right-sided abdominal pain. RADIATION DOSAGE (If Supplied By Facility): CTDIvol = ( 11.31 ) mGy, DLP = ( 719.68 ) mGycm TECHNIQUE: Transaxial images were obtained from the dome of the diaphragm to the symphysis pubis without oral contrast. IV 100mL Isovue-300 was administered. Sagittal and coronal images were reconstructed. Individualized dose optimization techniques were used for this CT. COMPARISON: Comparison is made with prior examination dated 07/02/2021. FINDINGS: Increased linear markings at the lung bases worse at the right lung base. These have progressed slightly as compared to prior study and most likely represents bibasilar scarring. The visualized portions of the heart are within normal limits. There is decreased attenuation of the liver consistent with steatosis. Stable hepatic cysts. The largest cyst is in the left lobe of liver. It measures 3.6 cm x 2.3 cm. Normal gallbladder and extrahepatic biliary system. Normal spleen. Normal pancreas. Normal bilateral adrenal glands. Normal right kidney. Punctate nonobstructive calculus in the upper pole calyx of the left kidney. 3 mm calculus in the midportion of the left kidney as well as a 2 mm calculus in the anterior midportion of the left kidney. Small left parapelvic renal cyst. There is a small hiatal hernia. Normal small intestine. There are multiple colonic diverticula consistent with diverticulosis. The appendix is visualized and appears normal. There is scattered atherosclerotic calcification of the abdominal aorta, without a demonstrated aneurysm. Normal inferior vena cava. Normal retroperitoneum. Normal urinary bladder. There is enlargement of the prostate gland. Normal abdominal wall. Normal osseous structures. CT/Abdomen/Pelvis W IV Cont ONLY IMPRESSION: Nonobstructive left intrarenal calculi. Sigmoid diverticulosis. Stable hepatic cysts. Fatty infiltration of the liver. Electronically Signed: Ryan Davis MD at 12:43 EDT ,
--- NOTE | 2022-08-18 11:35 | EKG12_ITS ---
Test Reason : ABNL PAIN Blood Pressure : / mmHG Vent. Rate : 087 BPM Atrial Rate : 087 BPM P-R Int : 152 ms QRS Dur : 064 ms QT Int : 362 ms P-R-T Axes : 060 039 057 degrees QTc Int : 435 ms Normal sinus rhythm Increased R/S ratio in V1, consider early transition or posterior infarct Abnormal ECG Confirmed by TUTU BETANCUR, SUSAN ([id number]), editor city REGINA MACDONALD ([id number]) on 08/20/2022 7:59:16 AM Referred By: ANGEL Confirmed By:SUSAN CAM MD
--- NOTE | 2022-08-18 11:37 | EDS_ITS ---
HPI History of Present Illness Chief Complaint: Abd Pain Informant: patient and spouse/S.O. Narrative Narrative: 67-year-old male arriving to the emergency department chief complaint of abdominal pain. Patient states pain began in the evening hours of last night. He notes its been constant waxing and waning. He notes some associated nausea vomiting. No diarrhea or urinary symptoms. He states that initially radiated to his back but is no longer doing that describes it as sharp in nature. He notes a prior history of back pain but otherwise has been a healthy individual. No fevers. Eating did not make this better or worse. He did have a syncopal episode in triage in front of respiratory that was doing his EKG at the time. [facility] Medical History Back pain Home Medications gabapentin 300 mg capsule 300 mg PO TID #30 caps 06/27/21 [Rx Last Taken Unknown] ketorolac 10 mg tablet 10 mg PO Q8H PRN pain 5 days #15 tabs 06/27/21 [Rx Last Taken Unknown] oxycodone-acetaminophen 5 mg-325 mg tablet 1 tab PO Q6H PRN PRN pain 5 days #20 TABLETS 06/27/21 [Rx Last Taken Unknown] prednisone 20 mg tablet See Rx Instructions .Route .COMPLEX #24 TABLETS 06/27/21 [Rx Last Taken Unknown] ondansetron 4 mg disintegrating tablet 4 mg PO Q8H PRN nausea and vomiting #10 tabs 07/02/21 [Rx Last Taken Unknown] hydrocodone-acetaminophen 5-325mg 5mg-325mg 1 tab PO Q6H PRN PRN Pain 3 days #12 TABLETS 08/18/22 [Rx Last Taken Unknown] ondansetron HCl 4 mg tablet 4 mg PO Q6H PRN nausea and vomiting #15 tabs 08/18/22 [Rx Last Taken Unknown] Allergy/AdvReac Type Severity Reaction Status Date / Time No Known Allergies Allergy Verified 08/18/22 10:57 Surgical History History of hernia repair Social History Smoking Status: Never smoker alcohol intake: never ROS ROS ED Constitutional Constitutional ED: Denies chills or weight loss Eyes Eyes: Denies change in vision or diplopia ENT ENT ED: Denies ear pain, rhinorrhea or sore throat Cardiovascular Cardiovascular: Denies chest pain, orthopnea, palpitations or racing heartbeat Respiratory/Chest Respiratory/Chest: Denies cough, dyspnea or orthopnea Gastrointestinal Gastrointestinal: Reports abdominal pain, nausea and vomiting; Denies diarrhea Genitourinary Genitourinary ED: Denies dysuria, hematuria or urinary frequency Musculoskeletal Musculoskeletal: Reports back pain; Denies arthralgias, myalgias or neck pain Integumentary Denies abscess or rash Neurologic Neurologic: Denies headache(s) or weakness Psychiatric Psychiatric: Denies anxiety, depression, suicidal ideation or suicidal thoughts Endocrine Endocrinology: Denies polydipsia, polyphagia or polyuria Allergic/Immunologic Allergic/Immunologic ED: Denies mouth swelling, tongue swelling or urticaria EXAM Physical Exam Const Vital Signs: 08/18/22 10:58 08/18/22 11:18 08/18/22 13:47 Temperature 98.2 F Temperature Source Temporal Pulse Rate 109 H 86 80 Respiratory Rate 16 32 H 20 H Blood Pressure 135/87 H 124/59 H 135/74 H Blood Pressure Mean 103 80 94 Pulse Ox 100 95 97 Oxygen Delivery Method Room Air Room Air Room Air 08/18/22 13:53 08/18/22 14:48 08/18/22 15:05 Temperature Temperature Source Pulse Rate 85 84 85 Respiratory Rate 19 H 17 27 H Blood Pressure 132/75 H 135/72 H 142/84 H Blood Pressure Mean 94 93 103 Pulse Ox 96 97 98 Oxygen Delivery Method Room Air Room Air Positive well nourished and well developed General Appearance ED: well developed HEENT Reports normocephalic, head/scalp atraumatic and moist mucous membranes Eyes PERRL and EOMs intact bilaterally Neck no lymphadenopathy, supple and no JVD Resp normal respiratory effort and clear to auscultation bilaterally Cardio regular rate, regular rhythm and no murmurs GI Auscultation: normoactive bowel sounds Palpation: soft and tender epigastric and RUQ; Negative for guarding or rebound tenderness present Back/Spine no CVA tenderness and normal ROM Extremity normal to inspection General Extremety ED: Negative for edema General Extremity: Negative for edema Neuro oriented x3 and CN's II-XII intact bilaterally Sensorium / Orientation: alert Motor Exam: strength 5/5 throughout Psych mental status grossly normal Mood & Affect: Negative for depressed or tearful Skin no rashes or lesions noted and no wounds MDM MDM MDM Narrative Medical decision making narrative: The despite 2 doses of Dilaudid the patient is still having pain. His white count is 14.9. CBC CMP essentially negative except for alk phos of 146. Urinalysis is normal. 2 sets of cardiac enzymes are negative. Has had no events on the monitor. CT the pelvis does not demonstrate any acute pathology to explain the patient's pain. At this point I will write for Zofran and some hydrocodone. Return in 24 hours if continued symptoms or follow-up. Return if worsening or concerns. Lab Data Attestation: I reviewed the patient's lab results. Labs: Laboratory Results - last 24 hr 08/18/22 08/18/22 08/18/22 11:08 11:08 11:08 WBC 14.9 H RBC 5.69 Hgb 16.0 Hct 49.0 MCV 86.1 MCH 28.1 MCHC 32.7 RDW Std Deviation 40.7 RDW Coeff of Stuart 13.1 Plt Count 258 MPV 10.5 Immature Gran % (Auto) 0.500 Neut % (Auto) 80.8 H Lymph % (Auto) 9.6 L [place] % (Auto) 8.8 Eos % (Auto) 0.1 Baso % (Auto) 0.2 Absolute Neuts (auto) 12.0 H Absolute Lymphs (auto) 1.42 Nucleated RBC % 0 Sodium 136 Potassium 4.1 Chloride 102 Carbon Dioxide 26.0 Anion Gap 8 BUN 13 Creatinine 1.23 Estim Creat Clear Calc 55.32 Est GFR (MDRD) Af Amer 75 Est GFR (MDRD) Non-Af 62 BUN/Creatinine Ratio 10.6 Glucose 131 H Calcium 9.7 Total Bilirubin 0.70 Direct Bilirubin 0.19 AST 17 ALT 18 Alkaline Phosphatase 146 H Troponin I High Sens Total Protein 8.0 Albumin 3.6 Globulin 4.4 H Lipase Urine Color Urine Clarity Urine pH Ur Specific [place] Urine Protein Urine Glucose (UA) Urine Ketones Urine Occult Blood Urine Nitrite Urine Bilirubin Urine Urobilinogen Ur Leukocyte Esterase Urine RBC Urine WBC Ur Squamous Epith Cells Urine Bacteria Urine Mucus 08/18/22 08/18/22 08/18/22 11:08 12:35 15:02 WBC RBC Hgb Hct MCV MCH MCHC RDW Std Deviation RDW Coeff of [place] Plt Count MPV Immature Gran % (Auto) Neut % (Auto) Lymph % (Auto) [place] % (Auto) Eos % (Auto) Baso % (Auto) Absolute Neuts (auto) Absolute Lymphs (auto) Nucleated RBC % Sodium Potassium Chloride Carbon Dioxide Anion Gap BUN Creatinine Estim Creat Clear Calc Est GFR (MDRD) Af Amer Est GFR (MDRD) Non-Af BUN/Creatinine Ratio Glucose Calcium Total Bilirubin Direct Bilirubin AST ALT Alkaline Phosphatase Troponin I High Sens 26 22 Total Protein Albumin Globulin Lipase 90 Urine Color Yellow Urine Clarity Clear Urine pH 7.0 Ur Specific [place] 1.005 Urine Protein 15 H Urine Glucose (UA) Normal Urine Ketones Negative Urine Occult Blood 10 H Urine Nitrite Negative Urine Bilirubin Negative Urine Urobilinogen Normal Ur Leukocyte Esterase Negative Urine RBC 0-5 SEEN Urine WBC 0 SEEN Ur Squamous Epith Cells 0 SEEN Urine Bacteria 0 SEEN Urine Mucus 0 SEEN Radiography Diagnostic Testing: Clinical Impression(s) from Imaging Studies Abdomen/Pelvis CT 08/18/22 11:35 IMPRESSION: Nonobstructive left intrarenal calculi. Sigmoid diverticulosis. Stable hepatic cysts. Fatty infiltration of the liver. Electronically Signed: Ryan Davis MD at 12:43 EDT , EKG Initial EKG: Attestation: I personally reviewed and interpreted this EKG as follows: Comments: Normal sinus rhythm ventricular rate of 87 bpm. Follow-up EKG: Attestation: I personally reviewed and interpreted this EKG as follows: Comments: Normal sinus rhythm ventricular rate of 95 bpm Discharge Plan Triage Chief Complaint: Abd Pain ED Provider: Raji Tristan Dx/Rx/DC Orders Clinical Impression: Abdominal pain, Syncope Instructions: ED Abdominal Pain Unkn Cause Male... Prescriptions: New hydrocodone-acetaminophen [hydrocodone-acetaminophen] 5-325 mg tablet 1 tab PO Q6H PRN PRN (Reason: Pain) 3 Days Qty: 12 0RF ondansetron HCl 4 mg tablet 4 mg PO Q6H PRN (Reason: nausea and vomiting) Qty: 15 0RF No Action oxycodone-acetaminophen [oxycodone-acetaminophen] 1 TABLET tablet 1 tab PO Q6H PRN PRN (Reason: pain) 5 Days Qty: 20 0RF ketorolac 10 mg tablet 10 mg PO Q8H PRN (Reason: pain) 5 Days Qty: 15 0RF prednisone 20 MG tablet See Rx Instructions .ROUTE .COMPLEX Qty: 24 0RF Rx Instructions: 3 tabs p.o. daily days 1 through 4, then 2 tabs p.o. daily days 5 through 8, then 1 tab p.o. daily day 9 through 12 gabapentin 300 mg capsule 300 mg PO TID Qty: 30 0RF ondansetron 4 mg tablet,disintegrating 4 mg PO Q8H PRN (Reason: nausea and vomiting) Qty: 10 0RF Primary Care Provider: Murphy Tyler Referrals: Murphy Tyler DO [Primary Care Provider] - 1-2 Days if not improving Disposition Disposition: Home, Self Care
[2022-08-18] MEDS: Ondansetron 4 MG/2 ML Vial IV (11:41)
[2022-08-18] MEDS: HYDROmorphone 1 MG/ML Syringe IV ×2 (11:41→12:30)
[2022-08-18 12:09] LABS: Lipase 90 U/L (73-393); Troponin-I HS 26 pg/mL (3.0-78.0)
--- NOTE | 2022-08-18 12:18 | EKG12_ITS ---
Test Reason : Blood Pressure : / mmHG Vent. Rate : 095 BPM Atrial Rate : 096 BPM P-R Int : 134 ms QRS Dur : 062 ms QT Int : 354 ms P-R-T Axes : 068 032 038 degrees QTc Int : 444 ms Normal sinus rhythm Normal ECG Confirmed by TUTU BETANCUR, SUSAN ([id number]), market editor REGINA MACDONALD ([id number]) on 08/20/2022 7:59:57 AM Referred By: Confirmed By:SUSAN CAM MD
[2022-08-18 12:49] LABS: Bacteria 0 SEEN /hpf (None Seen); Mucous, Urine 0 SEEN /hpf (<or=2+); Squamous Epithelial Cells - UA 0 SEEN /hpf (0-5); White Blood Cells 0 SEEN /hpf (0-5)
[2022-08-18 12:55] LABS: Color, Urine Yellow (Yellow); Glucose, Dipstick Normal (Normal); Ketone-Dipstick Negative (Negative); Leukocyte Esterase-Dipstick Negative /ul (Negative); Nitrite-Dipstick Negative (Negative); Occult Blood-Urine 10 /ul (Negative); Protein-Dipstick 15 mg/dl (Negative); Specific Gravity, Urine 1.005 (1.002-1.030); Urine Bilirubin Dipstick Negative (Negative); Urine Clarity Clear (Clear); Urine Urobilinogen Normal (Normal)
[2022-08-18 12:55] LABS: AST(SGOT) 17 U/L (15-37); Alanine Aminotransfer ALT/SGPT 18 U/L (16-61); Albumin, Serum 3.6 g/dL (3.2-5.0); Alkaline Phosphatase 146 U/L (45-117); Bilirubin, Direct 0.19 mg/dL (0.00-0.30); Globulin 4.4 g/dL (2.2-4.2)
[2022-08-18 13:04] LABS: Red Blood Cells-Urine 0-5 SEEN /hpf (0-5)
[2022-08-18 15:26] LABS: Troponin-I HS 22 pg/mL (3.0-78.0)
== END 2022-08-18 16:02 | disposition home or self-care (01) ==
PROVIDERS: Emergency Provider Emergency Medicine; PCP Family Medicine; Visit Provider Emergency Medicine
DX: R10.9 Unspecified abdominal pain (principal); R55 Syncope and collapse
CPT/HCPCS: 74177; 80048; 80076; 81001; 83690; 84484; 85025; 93005; 96374; 96375; 99282; J7030; Q9967; A4216; J2405

== ENCOUNTER 2025-10-17 07:02 | Emergency (ER) | payer MEDICARE, SELFPAY ==
[2025-10-17 07:03] VITALS: BP 132/93; PULSE 117; RESP 16; TEMP 35.6; O2SAT 100
--- NOTE | 2025-10-17 07:08 | ED.VIS.BACK ---
HPI History of Present Illness Chief Complaint: Back Narrative Narrative: Patient is a 70-year-old male presenting to the emergency department for chronic back pain. Patient has a past medical history of left-sided lumbar radiculopathy and sciatica. States this feels similar to previous. Patient states that last Wednesday the pain gradually started. Worsens with prolonged sitting. He denies any trauma or falls to his back or hip. States that he followed up with his primary care doctor who prescribed him initially few days of prednisone which he has taken as prescribed. States he was also prescribed gabapentin which he feels is not helping. He has been taking intermittent Motrin and Tylenol for pain control at home. States that it is in his left lower back/hip. Radiates down his posterior left leg. Denies any fevers, chills, bowel or bladder incontinence or retention, saddle anesthesia, numbness or weakness in his bilateral lower extremities, recent weight loss or diabetes for cancer diagnosis. States he has been able to ambulate. [facility] Medical History Back pain Home Medications ?Medication ?Instructions ?Recorded ?Last Taken ?Type gabapentin 300 mg capsule 300 mg PO TID #30 caps 06/27/21 Unknown Rx ketorolac 10 mg tablet 10 mg PO Q8H PRN pain 5 days #15 06/27/21 Unknown Rx tabs oxycodone-acetaminophen 5 mg-325 1 tab PO Q6H PRN PRN pain 5 days 06/27/21 Unknown Rx mg tablet #20 TABLETS prednisone 20 mg tablet See Rx Instructions .Route 06/27/21 Unknown Rx .COMPLEX #24 TABLETS ondansetron 4 mg disintegrating 4 mg PO Q8H PRN nausea and 07/02/21 Unknown Rx tablet vomiting #10 tabs hydrocodone-acetaminophen 5-325mg 1 tab PO Q6H PRN PRN Pain 3 days 08/18/22 Unknown Rx 5mg-325mg #12 TABLETS ondansetron HCl 4 mg tablet 4 mg PO Q6H PRN nausea and 08/18/22 Unknown Rx vomiting #15 tabs hydrocodone-acetaminophen 5-325mg 1 tab PO Q6H PRN PRN Pain 3 days 10/17/25 Unknown Rx 5mg-325mg #12 TABLETS ketorolac 10 mg tablet 10 mg PO Q8H 3 days #9 tabs 12/03/25 Unknown Rx lidocaine 5 % topical patch 1 patch topical DAILY #15 ea 10/17/25 Unknown Rx (DermacinRx Lidocan) Allergy/AdvReac Type Severity Reaction Status Date / Time No Known Allergies Allergy Verified 10/17/25 07:04 Surgical History History of hernia repair Social History Smoking Status: Never smoker alcohol intake: never ROS ROS ED ROS Narrative See HPI EXAM Physical Exam Narrative Exam Narrative: Vital signs: Reviewed General: Alert and oriented x 3. No acute distress. Well-appearing, nontoxic HEENT: Head is normocephalic and atraumatic, sinuses nontender, pupils equal round and reactive. Nares are patent. Oropharynx and throat exams normal. Neck: Supple without lymphadenopathy nontender Cardiovascular: Regular rate and rhythm, no murmurs. No rubs or gallops. Normal S1 and S2 Respiratory: Clear to auscultation bilaterally. No wheezes, rales, rhonchi Abdominal: Soft and nontender. Normal bowel sounds. No guarding or rebound. Nonsurgical abdomen Back: No midline thoracic or lumbar spinal tenderness to palpation. No step-offs or deformities. No rashes or erythema to the back or hip. There is no tenderness to palpation of the left hip or any obvious deformities. There is some mild tenderness to palpation of the left SI joint. No tenderness to palpation of the left upper leg, knee, calf, ankle or foot. DP and PT pulses intact. Normal sensation in the left lower extremity. 5 out of 5 strength with hip flexion and extension and knee flexion and extension. Straight leg test negative. No calf swelling, erythema or palpable cords. No erythema or warmth of the hip joint or knee joint. Extremities: No tenderness. No bruising. Normal range of motion. Normal sensation. Skin: No rash or redness. Neurological: Cranial nerves II through XII are grossly intact. Normal strength and sensation. Normal cerebellar function The rest of the physical exam is unremarkable Const Vital Signs: 10/17/25 07:03 10/17/25 09:22 Temperature 96.0 F L Temperature Source Temporal Pulse Rate 117 H 77 Respiratory Rate 16 16 Blood Pressure 132/93 H 145/94 H Blood Pressure Mean 106 111 Pulse Ox 100 100 Oxygen Delivery Method Room Air Room Air MDM MDM MDM Narrative Medical decision making narrative: Patient is a 70-year-old male presenting to the emergency department for left lower back pain that radiates down his left leg and feels like his prior sciatica. Patient was seen and examined. Vitals are stable. Triage vitals with mild tachycardia likely due to pain. Patient peers uncomfortable, restless in bed. He took gabapentin this morning, did not take anything else. Patient will be given Toradol here, Lidoderm patch and Flexeril for pain control. Patient has no midline back pain on exam and no red flag back pain signs which can be seen in the HPI. I do not think patient needs any imaging of his back or hip. Hip joint is not erythematous or warm and has active range of motion that is within normal limits I do not think this is a septic joint. No CP, abdominal pain, no history of HTN, I do not think this is an atypical presentation of aortic pathology. No CVA tenderness or urinary symptoms I do not think this is nephrolithiasis. Patient describes it as a burning type pain down the back of his leg which is consistent with sciatica. Reevaluated at 8:15 AM, still endorsing pain. Patient given Percocet. Patient has had some mild improvement in symptoms on reevaluation around 9:30 AM. Will prescribe toradol, Lidoderm patches and short course of Percocet at home for pain control. Patient has one more dose today to finish a short burst of steroids. Do not think he needs a repeated course. I did discuss with him very strict return precautions and extensively discussed red flag back pain signs with him. Ambulated without difficulty. Patient discharged from the Emergency Department. I do not feel that the patient's evaluation reveals any acute reason for admission at this time. I instructed them to either follow-up with their primary care physician or promptly return to the Emergency Department for reevaluation should symptoms worsen or new symptoms develop. I explained what symptoms would indicate the need to return to the emergency department. Shared decision making was used. The patient voiced understanding of the treatment plan and is agreeable with it. Clinical impression Left sided sciatica History & Record Review Discussion w/independent historian: Patient and Significant other Discharge Plan Triage Chief Complaint: Back ED Provider: Nedra Man Dx/Rx/DC Orders Clinical Impression: Sciatica Instructions: Self-Care for Low Back Pain, ED Sciatica Prescriptions: New hydrocodone-acetaminophen 5-325 mg tablet 1 tab PO Q6H PRN PRN (Reason: Pain) 3 Days Qty: 12 0RF ketorolac 10 mg tablet 10 mg PO Q8H 3 Days Qty: 9 0RF lidocaine [DermacinRx Lidocan] 5 % adhesive patch,medicated 1 patch topical DAILY Qty: 15 0RF Rx Instructions: leave on most painful area for up to 12 hrs No Action oxycodone-acetaminophen [oxycodone-acetaminophen] 1 TABLET tablet 1 tab PO Q6H PRN PRN (Reason: pain) 5 Days Qty: 20 0RF ketorolac 10 mg tablet 10 mg PO Q8H PRN (Reason: pain) 5 Days Qty: 15 0RF prednisone 20 MG tablet See Rx Instructions .ROUTE .COMPLEX Qty: 24 0RF Rx Instructions: 3 tabs p.o. daily days 1 through 4, then 2 tabs p.o. daily days 5 through 8, then 1 tab p.o. daily day 9 through 12 gabapentin 300 mg capsule 300 mg PO TID Qty: 30 0RF ondansetron 4 mg tablet,disintegrating 4 mg PO Q8H PRN (Reason: nausea and vomiting) Qty: 10 0RF hydrocodone-acetaminophen [hydrocodone-acetaminophen] 5-325 mg tablet 1 tab PO Q6H PRN PRN (Reason: Pain) 3 Days Qty: 12 0RF ondansetron HCl 4 mg tablet 4 mg PO Q6H PRN (Reason: nausea and vomiting) Qty: 15 0RF Primary Care Provider: Murphy Tyler Referrals: Murphy Tyler DO [Primary Care Provider, Family Practice] - As soon as possible Activity Restrictions/Additional Instructions: You can apply the Lidoderm patch to your left lower back/upper buttocks for 12 hours at a time, remove it after this time period. You can apply heat or ice to your lower back to help with your symptoms which ever one feels like it helps more. Finish taking the steroids that were prescribed to you by your primary care doctor. You can take the Toradol 1 tablet every 8 hours for the next 3 days, make sure you are taking this with food as it can irritate your stomach lining. Do not take this with other NSAIDs which include Aleve, Motrin, ibuprofen. You can also take the Percocet every 6 hours as needed for pain control. Be mindful that this has Tylenol in it so you cannot take Tylenol with it. Also be aware that this can cause constipation, stomach upset, and lightheadedness and dizziness. Do not drive or operate heavy machinery while taking it. Like discussed if you develop any worsening back pain or any of the signs and symptoms that we discussed you need to return to the emergency department immediately. Your evaluation in the Emergency Department did not reveal any acute reason for admission. However, I want to emphasize that you may be early in the course of a disease process or illness even if it is not present. For this reason you should follow-up within 24 hours for reevaluation with either your primary care physician or if necessary back here in the Emergency Department. You should return to the Emergency Department immediately if your symptoms worsen or new symptoms develop. Print Language: Wolof Disposition Disposition: Home, Self Care
[2025-10-17] MEDS: Ketorolac 30 MG/ML Syringe IM (07:36)
[2025-10-17] MEDS: Lidocaine 5% Patch 1 PATCH TOPICAL (07:37)
--- OUTSIDE RECORDS SUMMARY | 2025-10-17 07:50 | XMS RPT_ITS | CCD ---
Author Organization [facility] Care Team Providers Care Manufacturing Sr Engineer Name Role Phone Cruz Hinson Attending Unavailable Dung Tyler Primary Care Unavailable Dung Tyler Primary Care Unavailable Raji Tristan Attending Unavailable Referred, Self Attending Unavailable Dung Tyler Primary Care Unavailable Referred, Self Referring Unavailable Dung Tyler DO Primary Care Provider JAYMIE REES Referring Unavailable DUNG TYLER Primary Care Unavailable DUNG TYLER Primary Care Unavailable Medications Current Medications Medication Drug Class(es) Dates Sig (Normalized) Sig (Original) acetaminophen 325 mg / HYDROcodone bitartrate 5 mg oral tablet (3 sources) Opioid Agonist Start: 08-18-2022 take 1 tablet by mouth every six hours as needed Hydrocodone-Aceta minophen Active 1 TABLET PO EVERY 6 HOURS NEEDED 12 August 18, 2022 Start: 01-30-2010 hydrocodone bi t/acetaminophen(VICODIN 5 MG-500 MG TAB) Take 1-2 tablet's) every six(6) hours as needed for pain. 0 0 01/30/2010 Active acetaminophen 325 mg / oxyCODONE hydrochloride 5 mg oral tablet (1 source) Opioid Agonist Start: 06-27-2021 take 1 tablet by mouth every six hours as needed Oxycodone-Acetaminophen Active 1 TABLET PO EVERY 6 HOURS NEEDED 20 June 27, 2021 gabapentin 300 mg oral capsule (1 source) Anti-epileptic Agent Start: 06-27-2021 take 300 mg by mouth three times daily Gabapentin Active 300 MG PO THREE TIMES A DAY June 27, 2021 12:00am ketorolac tromethamine 10 mg oral tablet (1 source) Nonsteroidal Anti-inflammatory Drug, Cyclooxygenase Inhibitor Start: 06-27-2021 take 10 mg by mouth every eight hours Ketorolac Active 10 MG PO Q8H 15 5 June 27, 2021 12:00am multivitamins(ONE -A-DAY ESSENTIAL TAB) (2 sources) Start: 11-26-2008 multivitamins(ONE-A-DAY ESSENTIAL TAB) Take one(1) tablet daily. 0 11/26/2008 Active ondansetron 4 mg oral tablet (2 sources) Serotonin-3 Receptor Antagonist Start: 08-18-2022 take 4 mg by mouth every six hours Ondansetron Hcl Active 4 MG PO EVERY 6 HOURS August 18, 2022 12:00am Start: 07-02-2021 take 4 mg by mouth e very eight hours Ondansetron Active 4 MG PO Q8H July 02, 2021 12:00am predniSONE 20 mg oral tablet (2 sources) Start: 06-27-2021 Prednisone Act giselle 0 .ROUTE .COMPLEX June 27, 2021 12:00am 3 tabs p.o. daily days 1 through 4, then 2 tabs p.o. daily days 5 through 8, then 1 tab p.o. daily day 9 through 12 Start: 08-03-2018 End: 06-20-2021 take 2 doses by mouth once daily, then take 1 dose by mouth once daily, then take 0.5 dose by mouth once daily Prednisone Discontinued 20 MG PO DAILY August 03, 2018 12:00am June 20, 2021 5:10pm 2 pills daily for 3 days, 1 pill daily for 4 days, 1/2 pill daily for 4 days. Completed/Discontinued Medications Medication Drug Class(es) Dates Sig (Normalized) Sig (Original) cyclobenzaprine hydrochloride 10 mg oral tablet (2 sources) Muscle Relaxant Start: 8 End: 1 take 10 mg by mouth three times daily Cyclobenzaprine Discontinued 10 MG PO THREE TIMES A DAY 03 04June 20, 2021 12:00am June 25, 2021 12:01am methylPREDNISolone 4 mg oral tablet (1 source) Corticosteroid Start: 1 End: 1 take 1 tablet by mouth once Methylprednisolone (Medrol (Earnest)) 4 mg tablets,dose pack Discontinued 4 MG PO per package directions 21 June 20, 2021 12:00am June 25, 2021 12:01am Problems Active Problems Problem Classification Problem Date Documented Date Episodic/Chronic Abdominal pain (2 sources) Abdominal pain; Translations: [Unspecified abdominal pain] Onset: 08-18-2022 Episodic Nausea and vomiting (1 source) Vomiting; Translations: [Vomiting, unspecified] Episodic Open wounds of head; neck; and trunk (1 source) Scalp laceration; Translations: [Laceration without foreign body of scalp, initial encounter] Episodic Other lower respiratory disease (2 sources) Rib pain; Translations: [Pleurodynia] 11-23-2024 Episodic Other lower respiratory disease (1 source) Pleurodynia; Translations: [Rib pain] Onset: 11-23-2024 Episodic Other nervous system disorders (2 sources) Ilioinguinal nerve neuralgia; 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] Onset: 02-04-2010 02-04-2010 Chronic Spondylosis; intervertebral disc disorders; other back problems (3 sources) Lumbar radiculopathy; Translations: [Radiculopathy, lumbar region] Episodic Syncope (1 source) Syncope; Translations: [Syncope and collapse] Episodic Past or Other Problems Problem Classification Problem Date Documented Da te Episodic/Chronic Abdominal hernia (2 sources) Inguinal hernia; Translations: [Unilateral inguinal hernia, without obstruction or gangrene, not specified as recurrent] Onset: 11-26-2008 11-26-2008 Episodic Calculus of urinary tract (2 sources) Kidney stone; Translations: [Calculus of kidney] Onset: 11-26-2008 11-26-2008 Episodic Results Test Name Value Interpretation Reference Range Facility [facility] 11-23-2024 CN Office Visit (UCWSTR ) HILDA MCRAE ([id number]) 1955 M Date Time Provider Department 11/23/24 9:15 AM JAYMIE REES [facility] During your visit today, we recorded the following information about you: Temperature Pulse Respiration Blood pressure 98.3 degrees 90/minute 18/minute 129/76 Weight 74.1 kg Jaymie Rees, AMADOR.SUPERINTENDENT [employer]AL 11/23/2024 10:00 AM Signed Subjective HPI Nontoxic-appearing male presents urgent care chief complaint left-sided rib injury. Duration of symptom 4 days. Associated symptoms left-sided rib pain. Patient states was working on a flatbed truck when he lost his footing in the snow fell approximately 3 to 4 feet landing on his left side of his ribs. States his arm was tucked to the side and felt like his elbow pushed into his left ribs. Pain is underneath the left pectoral region. Denied any head neck or back pain. No LOC. Denied any other injuries. No abdominal pain vomiting. No blood in urine or stool. No shortness of breath or pleuritic pain. No hemoptysis. Denied any shoulder pain. OTC medications little success. States pain is 5 out of 10 at rest increased pain with taking a deep breath or movements. Denies history of blood thinner use. Past medical history prescription medications allergies reviewed. .Patient presents with: Fall: Fell from back of truck and landed on L side x4 days PAST MEDICAL HISTORY Diagnosis Date NEGATIVE MEDICAL HISTORY PAST SURGICAL HISTORY Procedure Laterality Date RPR 1ST INGUN HRNA AGE 4 YRS/> REDUCIBLE 12/31/2008 Left ALLERGIES Patient has no known allergies. MEDICATIONS hydrocodone bit/acetaminophen(GERAMN ANDREY 5 MG-500 MG TAB) Take 1-2 tablet's) every six(6) hours as needed for pain. (Patient not taking: Reported on 11/23/2024) multivitamins(ONE-A-D AY ESSENTIAL TAB) Take one(1) tablet daily. (Patient not taking: Reported on 11/23/2024) No family history on file. Social History Tobacco Use Smoking status: Never Smokeless tobacco: Never Substance Use Topics Alcohol use: No Drug use: No BP 129/76 Pulse 90 Temp 36.8 ?C (98.3 ?F) Resp 18 Wt 74.1 kg (163 lb 5.8 oz) SpO2 98% Review of Systems Constitutional: Negative for chills, fever and malaise/fatigue. Respiratory: Negative for shortness of breath. Gastrointestinal: Negative for abdominal pain, nausea and vomiting. Genitourinary: Negative for hematuria. Musculoskeletal: Positive for falls. Negative for back pain, joint pain, myalgias and neck pain. Neurological: Negative for dizziness, loss of consciousness, weakness and headaches. Objective Physical Exam Constitutional: General: He is not in acute distress. Appearance: He is not toxic-appearing. HENT: Head: Normocephalic. Nose: Nose normal. Eyes: Pupils: Pupils are equal, round, and reactive to light. Cardiovascular: Rate and Rhythm: Normal rate. Pulmonary: Effort: Pulmonary effort is normal. No respiratory distress. Musculoskeletal: Arms: Cervical back: Normal range of motion. Comments: No pain to palpation on shoulder spinal region and neck. No pain with palpation over clavicular region. Pain with palpation over highlighted area. No crepitus. No deformities. Breath sounds equal unlabored. No pain with palpation over abdomen. No ecchymosis edema. Skin: General: Skin is warm and dry. Neurological: General: No focal deficit present. Mental Status: He is alert. ASSESSMENT/PLAN: 1. Rib pain - ICD9: 786.50, ICD10: R07.81 - XR RIBS/CHEST 3V AP RIB/OBLS/CXR LEFT IMPRESSION: No acute finding No acute findings noted on x-ray. Discussed rib pain management. Red flags for ER evaluation. Patient was educated on supportive therapies. Patient will follow up with primary care provider as needed. Patient was instructed to immediately proceed to emergency room for any new, worsening, or symptoms lasting longer than anticipated. The patient's clinical presentation is otherwise unremarkable at this time. Based on exam and clinical finding, the patient is stable for discharge. Plan of care was discussed with patient. Patient verbalizes understanding and agrees to plan of care. This note was generated using Mark media software. It may contain errors in wording, punctuation, or spelling. Jaymie Rees APRN.SUPERINTENDENT [employer] Allergies As of Date: 11/23/2024 (No Known Allergies) Date Reviewed: 11/23/2024 Reviewed by: Jaymie Rees APRN.SUPERINTENDENT [employer] - Fully Assessed Reason for Visit: Fall [218] Cmt: Fell from back of truck and landed on L side x4 days Primary Visit Diagnosis:Rib pain [R07.81] Order(s):XR RIBS/CHEST 3V AP RIB/OBLS/CXR LEFT [[id number]] Order #: [id number] FUTURE Prescriptions as of 11/23/2024 - hydrocodone bit/acetaminophen(GERMAN ANDREY 5 MG-500 MG TAB) Take 1-2 tablet's) every six(6) hours as needed for pain. - multivitamins(ONE-A-D AY ESSENTIAL TAB) Take one(1) tablet daily. (more content not included)... Normal [facility] XR RIB/CHST 3V AP RIB/OBL/CH ST Miquel 11-23-2024 XR RIB/CHST 3V AP RIB/OBL/CHST L * * *Final Report* * * DATE OF EXAM: Nov 23 2024 9:47AM WOX 5243 - XR RIB/CHST 3V AP RIB/OBL/CHST L / PROCEDURE REASON: Rib pain * * * * Physician Interpretation * * * * LEFT RIBS History: Rib pain Findings: No evidence of acute fracture. No evidence of pneumothorax or effusion. Hypertrophic spurring patellofemoral joint. IMPRESSION: No acute finding Construction Representative: PSC Transcribe Date/Time: Nov 23 2024 9:49A Dictated by : DUNG CARTWRIGHT MD This examination was interpreted and the report reviewed and electronically signed by: DUNG CARTWRIGHT MD on Nov 23 2024 9:50AM EST [id number] Normal [facility] XR Ribs - left Views and Nichole st PAon 11-23-2024 IMPRESSION: No acute finding Construction Representative: PSCB Transcribe Date/Time: Nov 23 2024 9:49A Dictated by : DUNG CARTWRIGHT MD This examination was interpreted and the report reviewed and electronically signed by: DUNG CARTWRIGHT MD on Nov 23 2024 9:50AM EST DIVISION OF RADIOLOGY * * *Final Report* * * DATE OF EXAM: Nov 23 2024 9:47AM WOX 5243 - XR RIB/CHST 3V AP RIB/OBL/CHST L / PROCEDURE REASON: Rib pain * * * * Physician Interpretation * * * * LEFT RIBS History: Rib pain Findings: No evidence of acute fracture. No evidence of pneumothorax or effusion. Hypertrophic spurring patellofemoral joint. DIVISION OF RADIOLOGY Provider, Terry Barajas - 11/23/2024 * * *Final Report* * * DATE OF EXAM: Nov 23 2024 9:47AM WOX 5243 - XR RIB/CHST 3V AP RIB/OBL/CHST L / PROCEDURE REASON: Rib pain * * * * Physician Interpretation * * * * LEFT RIBS History: Rib pain Findings: No evidence of acute fracture. No evidence of pneumothorax or effusion. Hypertrophic spurring patellofemoral joint. IMPRESSION IMPRESSION: No acute finding Construction Representative: MONE Transcribe Date/Time: Nov 23 2024 9:49A Dictated by : DUNG CARTWRIGHT MD This examination was interpreted and the report reviewed and electronically signed by: DUNG CARTWRIGHT MD on Nov 23 2024 9:50AM EST [facility] Radiology Study observation (narrative) [facility] XR Ribs - left Views and Nichole st PAOrdered By: Ccf Provider on 11-23-2024 [facility] 12 Lead EKGon 08-18-2022 12 Lead EKG [facility] Cardiovascular Services [address] [place] [address] 12 Lead EKG 08/18/22 1224 MR#: [id number] Acct: [id number] Name: HILDA MCRAE Rep #: [id number] : 1955 67 From: Blas Rivera MD Attending Dr: Status: DEP ER Ordering Dr: Raji Tristan DO Date: 08/18/22 Location: ED Sex: M C Admitted: Test Reason : Blood Pressure : / mmHG Vent. Rate : 095 BPM Atrial Rate : 096 BPM P-R Int : 134 ms QRS Dur : 062 ms QT Int : 354 ms P-R-T Axes : 068 032 038 degrees QTc Int : 444 ms Normal sinus rhythm Normal ECG Confirmed by BLAS RIVERA MD ([id number]), supervising editor trailer REGINA MACDONALD ([id number]) on 08/20/2022 7:59:57 AM Referred By: Confirmed By:BLAS RIVERA MD 08/20/22 0759 Date Blas Rivera MD CC: Dr. Raji Tristan DO; Dr. Dung Tyler DO Signed Normal [facility] 12 Lead EKG [facility] Cardiovascular Services [address] [place] [address] 12 Lead EKG 08/18/22 1112 MR#: [id number] Acct: [id number] Name: HILDA MCRAE Rep #: [id number] : 1955 67 From: Blas Rivera MD Attending Dr: Status: DEP ER Ordering Dr: Raji Tristan DO Date: 08/18/22 Location: ED Sex: M C Admitted: Test Reason : ABNL PAIN Blood Pressure : / mmHG Vent. Rate : 087 BPM Atrial Rate : 087 BPM P-R Int : 152 ms QRS Dur : 064 ms QT Int : 362 ms P-R-T Axes : 060 039 057 degrees QTc Int : 435 ms Normal sinus rhythm Increased R/S ratio in V1, consider early transition or posterior infarct Abnormal ECG Confirmed by BLAS RIVERA MD ([id number]), supervising editor trailer REGINA MACDONALD ([id number]) on 08/20/2022 7:59:16 AM Referred By: ANGEL Confirmed By:BLAS RIVERA MD 08/20/22 0759 Date Blas Rivera MD CC: Dr. Raji Tristan DO; Dr. Dung Tyler DO Signed Normal [facility] Abdomen/Pelvis W IV Cont ONL Yon 08-18-2022 Abdomen/Pelvis W IV Cont ONLY [facility] Imaging Services [address] [facility] [place] [address] Abdomen/Pelvis W IV Cont ONLY MR#: [id number] Acct: [id number] Name: HILDA MCRAE Rep #: [id number] : 1955 M 67 From: Ryan aguirre MD PCP: Dr. Dung Tyler DO Status: REG ER Study: Abdomen/Pelvis W IV Cont ONLY Date of Exam: Exam# [id number] Ordering Dr: [place],Raji DO STUDY: CT ABDOMEN AND PELVIS WITH CONTRAST REASON FOR EXAM: Male, 67 years old. Right-sided abdominal pain. RADIATION DOSAGE (If Supplied By Facility): CTDIvol = ( 11.31 ) mGy, DLP = ( 719.68 ) mGycm TECHNIQUE: Transaxial images were obtained from the dome of the diaphragm to the symphysis pubis without oral contrast. IV 100mL Isovue-300 was administered. Sagittal and coronal images were reconstructed. Individualized dose optimization techniques were used for this CT. COMPARISON: Comparison is made with prior examination dated 07/02/2021. FINDINGS: Increased linear markings at the lung bases worse at the right lung base. These have progressed slightly as compared to prior study and most likely represents bibasilar scarring. The visualized portions of the heart are within normal limits. There is decreased attenuation of the liver consistent with steatosis. Stable hepatic cysts. The largest cyst is in the left lobe of liver. It measures 3.6 cm x 2.3 cm. Normal gallbladder and extrahepatic biliary system. Normal spleen. Normal pancreas. Normal bilateral adrenal glands. Normal right kidney. Punctate nonobstructive calculus in the upper pole calyx of the left kidney. 3 mm calculus in the midportion of the left kidney as well as a 2 mm calculus in the anterior midportion of the left kidney. Small left parapelvic renal cyst. There is a small hiatal hernia. Normal small intestine. There are multiple colonic diverticula consistent with diverticulosis. The appendix is visualized and appears normal. There is scattered atherosclerotic calcification of the abdominal aorta, without a demonstrated aneurysm. Normal inferior vena cava. Normal retroperitoneum. Normal urinary bladder. There is enlargement of the prostate gland. Normal abdominal wall. Normal osseous structures. CT/Abdomen/Pelvis W IV Cont ONLY IMPRESSION: Nonobstructive left intrarenal calculi. Sigmoid diverticulosis. Stable hepatic cysts. Fatty infiltration of the liver. Electronically Signed: Ryan Davis MD at 12:43 EDT , CC: Dr. Raji Tristan, DO; Dr. Dung Tyler, DO Construction Representative: Signed Normal [facility] Absolute lymphocyte counton 08-18-2022 Lymphocytes Auto (Unsp spec) [#/Vol] 1.42 10*3/uL 0.83-4.51 [facility] Work Phone: Basic Metabolic Profile (BMP )on 08-18-2022 BUN/CRE 10.6 RATIO Normal 10-20 [facility] Comment on above: Performed By: #### L 100.0100, L500.2500 ####[facility] [address] [place], [address] CA,Total 9.7 mg/dL Normal 8.5-10.1 [facility] Comment on above: Performed By: #### L 100.0100, L500.2500 ####[facility] [address] [place], [address] Chloride [Moles/Vol] 102 mmol/L Normal 98-107 [facility] Comment on above: Performed By: #### L 100.0100, L500.2500 ####[facility] [address] [place], [address] CO2 [Moles/Vol] 26.0 mmol/L Normal 21.0-32.0 [facility] Comment on above: Performed By: #### L 100.0100, L500.2500 ####[facility] [address] [place], [address] Creatinine [Mass/Vol] 1.23 mg/dL Normal 0.70-1.30 [facility] Comment on above: Result Comment: The validity of the calculated GFR GFRAA in patients over 70 years has not been determined. Clinical correlation is essential. Performed By: #### L 100.0100, L500.2500 ####[facility] [address] [place], [address] ECRCL 55.32 ml/min Normal [facility] Comment on above: Performed By: #### L 100.0100, L500.2500 ####[facility] [address] [place], [address] EST GFR - AA 75 mL/min Normal >60 [facility] Comment on above: Result Comment: Afri can [place] GFR Calc Performed By: #### L 100.0100, L500.2500 ####[facility] [address] [place], [address] GAP 8 Normal 5-15 [facility] Comment on above: Performed By: #### L 100.0100, L500.2500 ####[facility] [address] [place], [address] GFR/1.73 sq M.predicted among non-blacks MDRD (S/P/Bld) [Vol rate/Area] 62 mL/min/{1.73_m2} Normal >60 [facility] Comment on above: Result Comment: Non- GFR Calc Performed By: #### L 100.0100, L500.2500 ####[facility] [address] [place], [address] Glucose [Mass/Vol] 131 mg/dL High 74-106 [facility] Comment on above: Result Comment: Fast ing Glucose result greater than or equal to 126 mg/dL suggests DIABETES MELLITUS per A.D.A. criteria. Performed By: #### L 100.0100, L500.2500 ####[facility] [address] [place], [address] Potassium [Moles/Vol] 4.1 mmol/L Normal 3.5-5.1 [facility] Comment on above: Performed By: #### L 100.0100, L500.2500 ####[facility] [address] [place], [address] Sodium [Moles/Vol] 136 mmol/L Normal 136-145 [facility] Comment on above: Performed By: #### L 100.0100, L500.2500 ####[facility] [address] [place], [address] Urea nitrogen [Mass/Vol] 13 mg/dL Normal 7-18 [facility] Comment on above: Performed By: #### L 100.0100, L500.2500 ####[facility] [address] [place], [address] Basophil percentageon 2021 Basophil percentage 0 SEEN /hpf 0-5 [facility] Work Phone: Basophils/100 WBC (Bld) 0.2 % 0-1 [facility] Work Phone: Bilirubin [Mass/Vol] 0.70 mg/dL 0.20-1.00 [facility] Work Phone: Comment on above: For patients on eltr ombopag therapy, use of Dimension [place] TBIL is not recommended. Chloride [Moles/Vol] 102 mmol/L 98-107 [facility] Work Phone: Eosinophils/100 WBC (Bld) 0.1 % 0-5 [facility] Work Phone: Glucose [Mass/Vol] 131 mg/dL 74-106 [facility] Work Phone: Comment on above: Fasting Glucose resu lt greater than or equal to 126 mg/dL suggests DIABETES MELLITUS per A.D.A. criteria. Neutrophils (Bld) [#/Vol] 12.0 10*3/uL 2.0-7.7 [facility] Work Phone: Neutrophils/100 WBC (Bld) 80.8 % 47-70 [facility] Work Phone: Potassium [Moles/Vol] 4.1 mmol/L 3.5-5.1 [facility] Work Phone: Protein [Mass/Vol] 8.0 g/dL 6.4-8.2 [facility] Work Phone: Sodium [Moles/Vol] 136 mmol/L 136-145 [facility] Work Phone: WBC (Bld) [#/Vol] 14.9 10*3/uL 4.4-11.0 [facility] Work Phone: Bilirubin Test strip Ql (U)o n 08-18-2022 Bilirubin Ql (U) Negative Negative [facility] Work Phone: Blood erythrocytes count (nu mber/volume)on 08-18-2022 RBC (Bld) [#/Vol] 5.69 10*6/uL 4.6-6.2 [facility] Work Phone: Blood hemoglobin measurement (mass/volume)on 08-18-2022 Hemoglobin (Bld) [Mass/Vol] 16.0 g/dL 13.0-16.5 [facility] Work Phone: Blood lymphocytes/100 leukoc yteson 08-18-2022 Lymphocytes/100 WBC (Bld) 9.6 % 19-41 [facility] Work Phone: Blood monocytes/100 leukocyt eson 08-18-2022 Monocytes/100 WBC (Bld) 8.8 % 0-10 [facility] Work Phone: Blood platelet mean volumeon 08-18-2022 Platelet mean volume (Bld) [Entitic vol] 10.5 fL 6.2-12.0 [facility] Work Phone: CBC W/Diff, Automatedon Absolute Lymph 1.42 X10 3/uL Normal 0.83-4.51 [facility] Comment on above: Performed By: #### L 100.0100, L500.2500 #### [facility] [address] [place], [address] Absolute Neut 12.0 X10 3/uL High 2.0-7.7 [facility] Comment on above: Performed By: #### L 100.0100, L500.2500 #### [facility] [address] [place], [address] Basophils/100 WBC (Bld) 0.2 % Normal 0-1 [facility] Comment on above: Performed By: #### L 100.0100, L500.2500 #### [facility] [address] [place], [address] Eosinophils/100 WBC (Bld) 0.1 % Normal 0-5 [facility] Comment on above: Performed By: #### L 100.0100, L500.2500 #### [facility] [address] [place], [address] Erythrocyte distribution width (RBC) [Ratio] 13.1 % Normal 11.6-14.6 [facility] Comment on above: Performed By: #### L 100.0100, L500.2500 #### [facility] [address] [place], [address] Hematocrit (Bld) [Volume fraction] 49.0 % Normal 40-54 [facility] Comment on above: Performed By: #### L 100.0100, L500.2500 #### [facility] [address] [place], [address] Hemoglobin (Bld) [Mass/Vol] 16.0 g/dL Normal 13.0-16.5 [facility] Comment on above: Performed By: #### L 100.0100, L500.2500 #### [facility] [address] [place], [address] IG% 0.500 Normal 0.0-0.9 [facility] Comment on above: Result Comment: IG% - Immature Granulocytes (promyelocytes, myelocytes and metamyelocytes) > 1% indicates that a LEFT SHIFT is Present. Performed By: #### L 100.0100, L500.2500 #### [facility] [address] [place], [address] Lymphocytes/100 WBC (Bld) 9.6 % Low 19-41 [facility] Comment on above: Performed By: #### L 100.0100, L500.2500 #### [facility] [address] [place], [address] MCH (RBC) [Entitic mass] 28.1 pg Normal 27.0-32.0 [facility] Comment on above: Performed By: #### L 100.0100, L500.2500 #### [facility] [address] [place], [address] MCHC (RBC) [Mass/Vol] 32.7 g/dL Normal 32-36 [facility] Comment on above: Performed By: #### L 100.0100, L500.2500 #### [facility] [address] [place], [address] MCV (RBC) [Entitic vol] 86.1 fL Normal 80-94 [facility] Comment on above: Performed By: #### L 100.0100, L500.2500 #### [facility] [address] [place], [address] Monocytes/100 WBC (Bld) 8.8 % Normal 0-10 [facility] Comment on above: Performed By: #### L 100.0100, L500.2500 #### [facility] [address] [place], [address] Neutrophils/100 WBC (Bld) 80.8 % High 47-70 [facility] Comment on above: Performed By: #### L 100.0100, L500.2500 #### [facility] [address] [place], [address] Nucleated RBC (Bld) [#/Vol] 0 10*3/uL Normal 0-5 [facility] Comment on above: Performed By: #### L 100.0100, L500.2500 #### [facility] [address] [place], [address] Platelet mean volume (Bld) [Entitic vol] 10.5 fL Normal 6.2-12.0 [facility] Comment on above: Performed By: #### L 100.0100, L500.2500 #### [facility] [address] [place], [address] Platelets (Bld) [#/Vol] 258 10*3/uL Normal 150-450 [facility] Comment on above: Performed By: #### L 100.0100, L500.2500 #### [facility] [address] [place], [address] RBC (Bld) [#/Vol] 5.69 10*6/uL Normal 4.6-6.2 [facility] Comment on above: Performed By: #### L 100.0100, L500.2500 #### [facility] [address] [place], [address] RDW SD 40.7 fl Normal 35.1-43.9 [facility] Comment on above: Performed By: #### L 100.0100, L500.2500 #### [facility] [address] [place], [address] WBC (Bld) [#/Vol] 14.9 10*3/uL High 4.4-11.0 [facility] Comment on above: Performed By: #### L 100.0100, L500.2500 #### [facility] [address] [place], [address] Determination of erythrocyte mean corpuscular volume (MCV)on 08-18-2022 MCV (RBC) [Entitic vol] 86.1 fL 80-94 [facility] Work Phone: Direct bilirubinon 10-04-202 2 Bilirubin.direct [Mass/Vol] 0.19 mg/dL 0.00-0.30 [facility] Work Phone: Emergency Department Summary on 08-18-2022 Emergency Department Summary [facility] Medical Records Department [address] [place] [address] Emergency Department Summary 08/18/22 MR#: [id number] Acct: [id number] Name: HILDA MCRAE Rep #: [id number] : 1955 67 From: Raji Tristan DO PCP: Dr. Dung Tyler DO Status:DEP ER Location: ED HPI History of Present Illness Chief Complaint: Abd Pain Informant: patient and spouse/S.O. Narrative Narrative: 67-year-old male arriving to the emergency department chief complaint of abdominal pain. Patient states pain began in the evening hours of last night. He notes its been constant waxing and waning. He notes some associated nausea vomiting. No diarrhea or urinary symptoms. He states that initially radiated to his back but is no longer doing that describes it as sharp in nature. He notes a prior history of back pain but otherwise has been a healthy individual. No fevers. Eating did not make this better or worse. He did have a syncopal episode in triage in front of respiratory that was doing his EKG at the time. [facility] Medical History Back pain Home Medications gabapentin 300 mg capsule 300 mg PO TID #30 caps 06/27/21 [Rx Last Taken Unknown] ketorolac 10 mg tablet 10 mg PO Q8H PRN pain 5 days #15 tabs 06/27/21 [Rx Last Taken Unknown] oxycodone-acetaminoph en 5 mg-325 mg tablet 1 tab PO Q6H PRN PRN pain 5 days #20 TABLETS 06/27/21 [Rx Last Taken Unknown] prednisone 20 mg tablet See Rx Instructions .Route .COMPLEX #24 TABLETS 06/27/21 [Rx Last Taken Unknown] ondansetron 4 mg disintegrating tablet 4 mg PO Q8H PRN nausea and vomiting #10 tabs 07/02/21 [Rx Last Taken Unknown] hydrocodone-acetamino phen 5-325mg 5mg-325mg 1 tab PO Q6H PRN PRN Pain 3 days #12 TABLETS 08/18/22 [Rx Last Taken Unknown] ondansetron HCl 4 mg tablet 4 mg PO Q6H PRN nausea and vomiting #15 tabs 08/18/22 [Rx Last Taken Unknown] Allergy/AdvReac Type Severity Reaction Status Date / Time No Known Allergies Allergy Verified 08/18/22 10:57 Surgical History History of hernia repair Social History Smoking Status: Never smoker alcohol intake: never ROS ROS ED Constitutional Constitutional ED: Denies chills or weight loss Eyes Eyes: Denies change in vision or diplopia ENT ENT ED: Denies ear pain, rhinorrhea or sore throat Cardiovascular Cardiovascular: Denies chest pain, orthopnea, palpitations or racing heartbeat Respiratory/Chest Respiratory/Chest: Denies cough, dyspnea or orthopnea Gastrointestinal Gastrointestinal: Reports abdominal pain, nausea and vomiting; Denies diarrhea Genitourinary Genitourinary ED: Denies dysuria, hematuria or urinary frequency Musculoskeletal Musculoskeletal: Reports back pain; Denies arthralgias, myalgias or neck pain Integumentary Denies abscess or rash Neurologic Neurologic: Denies headache(s) or weakness Psychiatric Psychiatric: Denies anxiety, depression, suicidal ideation or suicidal thoughts Endocrine Endocrinology: Denies polydipsia, polyphagia or polyuria Allergic/Immunologic Allergic/Immunologic ED: Denies mouth swelling, tongue swelling or urticaria EXAM Physical Exam Const Vital Signs: 08/18/22 10:58 08/18/22 11:18 08/18/22 13:47 Temperature 98.2 F Temperature Source Temporal Pulse Rate 109 H 86 80 Respiratory Rate 16 32 H 20 H Blood Pressure 135/87 H 124/59 H 135/74 H Blood Pressure Mean 103 80 94 Pulse Ox 100 95 97 Oxygen Delivery Method Room Air Room Air Room Air 08/18/22 13:53 08/18/22 14:48 08/18/22 15:05 Temperature Temperature Source Pulse Rate 85 84 85 Respiratory Rate 19 H 17 27 H Blood Pressure 132/75 H 135/72 H 142/84 H Blood Pressure Mean 94 93 103 Pulse Ox 96 97 98 Oxygen Delivery Method Room Air Room Air Positive well nourished and well developed General Appearance ED: well developed HEENT Reports normocephalic, head/scalp atraumatic and moist mucous membranes Eyes PERRL and EOMs intact bilaterally Neck no lymphadenopathy, supple and no JVD Resp normal respiratory effort and clear to auscultation bilaterally Cardio regular rate, regular rhythm and no murmurs GI Auscultation: normoactive bowel sounds Palpation: soft and tender epigastric and RUQ; Negative for guarding or rebound tenderness present Back/Spine no CVA tenderness and normal ROM Extremity normal to inspection General Extremety ED: Negative for edema General Extremity: Negative for edema Neuro oriented x3 and CN's II-XII intact bilaterally Sensorium / Orientation: alert Motor Exam: strength 5/5 throughout Psych mental status grossly normal Mood Affect: Negative for depressed or tearful Skin n (more content not included)... Normal [facility] Hematocrit Auto (Bld) [Volum e fraction]on 08-18-2022 Hematocrit (Bld) [Volume fraction] 49.0 % 40-54 [facility] Work Phone: Ketones Test strip Ql (U)on 08-18-2022 Ketones Ql (U) Negative Negative [facility] Work Phone: [id number] 08-18-2022 TROPONIN-I HS 22 pg/mL Normal 3.0-78.0 [facility] Comment on above: Order Comment: 'TROP ' Serial specimen #1, #2 or #3: 2 Result Comment: Plea se Note: New Test Units and Gender Specific Reference Ranges. For more information see Policy Stat Procedure Dupont High Sensitivity Troponin (TNIH) and attachments. Performed By: #### L 501.4020 #### [facility] [address] [place], [place], [address] TROPONIN-I HS 26 pg/mL Normal 3.0-78.0 [facility] Comment on above: Order Comment: 'TROP ' Serial specimen #1, #2 or #3: 1 Result Comment: Plea se Note: New Test Units and Gender Specific Reference Ranges. For more information see Policy Stat Procedure Dupont High Sensitivity Troponin (TNIH) and attachments. Performed By: #### L 501.4020, L501.2450 #### [facility] [address] [place], [address] Laboratory - Chemistry and C hemistry - challengeon 08-18-2022 ALP [Catalytic activity/Vol] 146 U/L 45-117 [facility] Work Phone: ALT [Catalytic activity/Vol] 18 U/L 16-61 [facility] Work Phone: CO2 [Moles/Vol] 26.0 mmol/L 21.0-32.0 [facility] Work Phone: Globulin (S) [Mass/Vol] 4.4 g/dL 2.2-4.2 [facility] Work Phone: Lipase [Catalytic activity/Vol] 90 U/L 73-393 [facility] Work Phone: Urea nitrogen/Creatinine [Mass ratio] 10.6 mg/mg 10-20 [facility] Work Phone: Laboratory - Hematology and Cell countson 08-18-2022 Erythrocyte distribution width (RBC) [Entitic vol] 40.7 fL 35.1-43.9 [facility] Work Phone: Erythrocyte distribution width (RBC) [Ratio] 13.1 % 11.6-14.6 [facility] Work Phone: Immature granulocytes/100 WBC (Bld) 0.500 % 0.0-0.9 [facility] Work Phone: Comment on above: IG% - Immature Granu locytes (promyelocytes, myelocytes and metamyelocytes) > 1% indicates that a LEFT SHIFT is Present. MCH (RBC) [Entitic mass] 28.1 pg 27.0-32.0 [facility] Work Phone: Nucleated RBC/100 WBC (Bld) [Ratio] 0 % 0-5 [facility] Work Phone: Lipaseon 08-18-2022 Lipase [Catalytic activity/Vol] 90 U/L Normal 73-393 [place] [facility] Comment on above: Order Comment: 'TROP ' Serial specimen #1, #2 or #3: 1 Performed By: #### L 501.4020, L501.2450 #### [facility] [address] [place], [address] Liver Profileon 08-18-2022 Albumin [Mass/Vol] 3.6 g/dL Normal 3.2-5.0 [facility] Comment on above: Performed By: #### L 500.3400 #### [facility] [address] [place], [address] ALK P 146 U/L High 45-117 [facility] Comment on above: Performed By: #### L 500.3400 #### [facility] [address] [place], [address] ALT [Catalytic activity/Vol] 18 U/L Normal 16-61 [facility] Comment on above: Performed By: #### L 500.3400 #### [facility] [address] [place], [address] AST [Catalytic activity/Vol] 17 U/L Normal 15-37 [facility] Comment on above: Performed By: #### L 500.3400 #### [facility] [address] [place], [address] Bilirubin [Mass/Vol] 0.70 mg/dL Normal 0.20-1.00 [facility] Comment on above: Result Comment: For patients on eltrombopag therapy, use of Dimension Dupont TBIL is not recommended. Performed By: #### L 500.3400 #### [facility] [address] [place], [address] Bilirubin.direct [Mass/Vol] 0.19 mg/dL Normal 0.00-0.30 [facility] Comment on above: Performed By: #### L 500.3400 #### [facility] [address] [place], [address] Globulin (S) [Mass/Vol] 4.4 g/dL High 2.2-4.2 [facility] Comment on above: Performed By: #### L 500.3400 #### [facility] [address] [place], [address] T PROT 8.0 g/dL Normal 6.4-8.2 [facility] Comment on above: Performed By: #### L 500.3400 #### [facility] [address] [place], [place], [address] MCHC Auto (RBC) [Mass/Vol]on 08-18-2022 MCHC (RBC) [Mass/Vol] 32.7 g/dL 32-36 [facility] Work Phone: Mucus LM Ql (Urine sed)on Mucus Ql (Urine sed) 0 SEEN /hpf [facility] Work Phone: Nitrite Test strip Ql (U)on 08-18-2022 Nitrite Ql (U) Negative Negative [facility] Work Phone: No Panel Informationon 08-18 Troponin I High Sensitivity 22 pg/mL 3.0-78.0 [facility] Work Phone: Comment on above: Please Note: New Vannessa t Units and Gender Specific Reference Ranges. For more information see Policy Stat Procedure Dupont High Sensitivity Troponin (TNIH) and attachments. Estimated Creatinine Clearance Calc 55.32 ml/min [facility] Work Phone: Estimated GFR (MDRD) Amer 75 mL/min >60 [facility] Work Phone: Comment on above: GFR Calc Estimated GFR (MDRD) Non-Af Amer 62 mL/min >60 [facility] Work Phone: Comment on above: Non- GFR Calc Platelets bldon 08-18-2022 Platelets (Bld) [#/Vol] 258 10*3/uL 150-450 [facility] Work Phone: Protein Test strip Ql (U)on 08-18-2022 Protein Ql (U) 15 mg/dl Negative [facility] Work Phone: Serum or plasma albumin carlton urement (mass/volume)on 08-18-2022 Albumin [Mass/Vol] 3.6 g/dL 3.2-5.0 [facility] Work Phone: Serum or plasma calcium carlton urement (mass/volume)on 08-18-2022 Calcium [Mass/Vol] 9.7 mg/dL 8.5-10.1 [facility] Work Phone: Serum or plasma creatinine m easurement (mass/volume)on 08-18-2022 Creatinine [Mass/Vol] 1.23 mg/dL 0.70-1.30 [facility] Work Phone: Comment on above: The validity of the calculated GFR & GFRAA in patients over 70 years has not been determined. Clinical correlation is essential. Serum or plasma urea nitroge n measurement (mass/volume)on 08-18-2022 Urea nitrogen [Mass/Vol] 13 mg/dL 7-18 [facility] Work Phone: Squamous epithelial cells de tection in urine sediment by light microscopyon 08-18-2022 Epithelial cells.squamous LM Ql (Urine sed) 0 SEEN /hpf 0-5 [facility] Work Phone: Thin prep Papanicolaou smear with manual screeningon 08-18-2022 Thin prep Papanicolaou smear with manual screening 17 U/L 15-37 [facility] Work Phone: Thin prep Papanicolaou smear with manual screening 8 5-15 [facility] Work Phone: Urinalysis, Completeon 08-18 RBC 0-5 SEEN Normal 0-5 [facility] Comment on above: Order Comment: COLLE CTOR TO SPECIFY Performed By: #### L 400.0001 #### [facility] [address] [place], [address] BACTERIA 0 SEEN Normal None Seen [facility] Comment on above: Order Comment: RUDY CTOR TO SPECIFY Performed By: #### L 400.0001 #### [facility] [address] [place], [address] EPI,SQUAMOUS 0 SEEN Normal 0-5 [facility] Comment on above: Order Comment: RUDY CTOR TO SPECIFY Performed By: #### L 400.0001 #### [facility] [address] [place], [address] Mucus Ql (Urine sed) 0 SEEN Normal [facility] Comment on above: Order Comment: RUDY CTOR TO SPECIFY Performed By: #### L 400.0001 #### [facility] [address] [place], [address] WBC 0 SEEN Normal 0-5 [facility] Comment on above: Order Comment: RUDY CTOR TO SPECIFY Performed By: #### L 400.0001 #### [facility] [address] [place], [address] Urine blood detectionon 10-0 RBC Ql (U) 10 /ul Negative [facility] Work Phone: RBC Ql (U) 0-5 SEEN /hpf 0-5 [facility] Work Phone: Urine clarityon 08-18-2022 Clarity (U) Clear Clear [facility] Work Phone: Urine color determinationon 08-18-2022 Color (U) Yellow Yellow [facility] Work Phone: Urine glucose detectionon Glucose Ql (U) Normal mg/dl Normal [facility] Work Phone: Urine leukocyte esterase det ection by dipstickon 08-18-2022 Leukocyte esterase Test strip Ql (U) Negative Negative [facility] Work Phone: Urine pHon 08-18-2022 pH (U) 7.0 [pH] 5.0 - 8.0 [facility] Work Phone: Urine sediment bacteria coun t by microscopy (number/high power field)on 08-18-2022 Bacteria LM.HPF (Urine sed) [#/Area] 0 /[HPF] None Seen [facility] Work Phone: Urine specific gravity measu rementon 08-18-2022 Specific gravity (U) [Rel density] 1.005 1.002-1.030 [facility] Work Phone: Urobilinogen Auto test strip Ql (U)on 08-18-2022 Urobilinogen Ql (U) Normal mg/dl Normal [facility] Work Phone: Vital Signs Date Time Vital Sign Value Performing Clinician Facility 11-23-2024 09:23-0500 Body temperature 98.29 [degF] Jaymie Rees [employer]ATE [employer] Work Phone: [facility] 11-23-2024 09:23-0500 Body weight 74.1 kg Jaymie Rees [employer]PORATE ME[employer]NER.[employer]PER[employer]ENT [employer] Work Phone: [facility] 11-23-2024 09:23-0500 Diastolic blood pressure 76 mm[Hg] Jaymie Bermeojuan [employer]PORATE MEETING PL[employer]NER.[employer]PER[employer]ENT [employer] Work Phone: [facility] 11-23-2024 09:23-0500 Heart rate 90 /min Jaymie Rees [employer]PORATE MEETING [employer]NER.SUPER[employer]ENT [employer] Work Phone: [facility] 11-23-2024 09:23-0500 Respiratory rate 18 /min Jaymie Rees [employer]PORATE MEETING [employer]NER.[employer]PER[employer] Work Phone: [facility] 11-23-2024 09:23-0500 SaO2% (BldA) [Mass fraction] 98 % Jaymie Rees [employer]PORATE MEETING [employer]NER.SUPER[employer] Work Phone: [facility] 11-23-2024 09:23-0500 Systolic blood pressure 129 mm[Hg] Jaymie Rees [employer]PORATE MEETING PL[employer]NER.[employer]PER[employer] Work Phone: [facility] 08-18-2022 15:48-0400 Diastolic blood pressure 77 mm[Hg] [facility] Work Phone: 08-18-2022 15:48-0400 Heart rate 86 /min [facility] Work Phone: 08-18-2022 15:48-0400 Respiratory rate 24 /min [facility] Work Phone: 08-18-2022 15:48-0400 SaO2% (BldA) [Mass fraction] 98 % [facility] Work Phone: 08-18-2022 15:48-0400 Systolic blood pressure 156 mm[Hg] [facility] Work Phone: 08-18-2022 10:58-0400 Body height 182.88 cm [facility] Work Phone: 08-18-2022 10:58-0400 Body mass index (BMI) [Ratio] 20.3 kg/m2 [facility] Work Phone: 08-18-2022 10:58-0400 Body temperature 98.2 [degF] [facility] Work Phone: 08-18-2022 10:58-0400 Body weight 68.03 kg [facility] Work Phone: Encounters Encounter Date Encounter Type Care Provider Facility Start: 11-23-2024 End: 11-23-2024 Subsequent hospital visit by physician [facility] Work Phone: Radiology Comment on above: Rib pain [R07.81] Start: 11-23-2024 End: 11-23-2024 ambulatory [facility] Facility:[facility] Start: 11-23-2024 End: 11-23-2024 Office outpatient new 20 minutes Jaymie Rees APRN.CNP Work Phone: [facility] Comment on above: Rib pain (Primary Dx ) Start: 10-21-2022 ambulatory Cruz Kirklandey Facility:[facility] Start: 08-18-2022 End: 08-18-2022 Emergency department patient visit [facility] Facility:[facility] Start: 08-18-2022 End: 08-18-2022 Emergency department patient visit [facility]-Emergency Department Procedures Date Procedure Procedure Detail Performing Clinician Start: 11-23-2024 Radex ribs uni w/posteroant ch minimum 3 views Jaymie Rees APRN.CNP Work Phone: Start: 08-18-2022 Computed tomography of abdomen and pelvis with intravenous contrast Plan of Treatment Date Care Activity Detail Author Start: 04-30-2031 Urine microalbumin profile DTaP,Tdap,Td Vaccine (2 - Td or Tdap) [facility] Start: 2029 RSV Vaccine (1 - 1-dose 75+ series) RSV Vaccine (1 - 1-dose 75+ series) [facility] Start: 11-15-2024 Advance Directive Discussion Advance Directive Discussion [facility] Start: 07-16-2024 Covid-19 Vaccine ( season) Covid-19 Vaccine ( season) [facility] Start: 07-16-2024 Influenza vaccination Influenza Vaccine (#1) [facility] Start: 2004 Pneumococcal Vaccine: 50+ (1 of 1 - PCV) Pneumococcal Vaccine: 50+ (1 of 1 - PCV) [facility] Start: 2004 Shingrix Vaccine (1 of 2) Shingrix Vaccine (1 of 2) [facility] Start: 1999 Diabetes Screening Diabetes Screening [facility] Start: 1999 Screening for malignant neoplasm of colon [facility] Start: 1989 Lipid panel Lipid Screening [facility] Start: 1972 Anxiety Screening Anxiety Screening [facility] Start: 1972 Depression Screening Depression Screening [facility] Start: 1972 Hepatitis C screening Hepatitis C Screening [facility] Patient Education ED Abdominal P ain Unkn Cause Male... [facility] Work Phone: Patient referral [facility] Work Phone: Immunizations Immunization Date Immunization Notes Care Provider Gage silver 04-30-2021 tetanus toxoid, redu lidia diphtheria toxoid, and acellular pertussis vaccine, adsorbed [facility] Work Phone: Payers Date Payer Category Payer Medicare [employer] MEDICARE A ETNA MEDICARE PPO [id number] 2023-Present [phone] [address] [place] [address] PPO [id number] 2022 Private Health Insurance 101 [id number] 2022 Self-pay [id number] 2006 Unknown DARLINE [id number] Unknown [id number] Unknown [id number] Unknown [id number] Social History Date Type Detail Facility Start: 08-18-2022 Tobacco smoking stat [facility] Unknown if ever smoked [facility] Work Phone: Start: 1955 Sex Assigned At Male [facility] Work Phone: Start: 11-23-2024 [facility] Start: 11-23-2024 Tobacco use and exposure Smokeless tobacco non-user [facility] Start: 11-23-2024 Alcoholic beverage intake Current non-drinker of alcohol (finding) [facility] Start: 11-23-2024 History of Social function [facility] Start: 11-23-2024 Tobacco use panel [facility] Start: 1955 Sex assigned at Not on file [facility] Progress note 11-23-2024 Note Date & Type Note Facility 11-23-2024 Note HNO ID: [id number] Author: JAYMIE REES APRN.SUPER[employer]ENT [employer] Service: ? Author Type: Nurse Practitioner Type: Progress Notes Filed: 11/23/2024 10:00 Note Text: Subjective HPI Nontoxic-appearing male presents urgent care chief complaint left-sided rib injury. Duration of symptom 4 days. Associated symptoms left-sided rib pain. Patient states was working on a flatbed truck when he lost his footing in the snow fell approximately 3 to 4 feet landing on his left side of his ribs. States his arm was tucked to the side and felt like his elbow pushed into his left ribs. Pain is underneath the left pectoral region. Denied any head neck or back pain. No LOC. Denied any other injuries. No abdominal pain vomiting. No blood in urine or stool. No shortness of breath or pleuritic pain. No hemoptysis. Denied any shoulder pain. OTC medications little success. States pain is 5 out of 10 at rest increased pain with taking a deep breath or movements. Denies history of blood thinner use. Past medical history prescription medications allergies reviewed. .Patient presents with: Fall: Fell from back of truck and landed on L side x4 days PAST MEDICAL HISTORY Diagnosis Date NEGATIVE MEDICAL HISTORY PAST SURGICAL HISTORY Procedure Laterality Date RPR 1ST INGUN HRNA AGE 4 YRS/> REDUCIBLE 12/31/2008 Left ALLERGIES Patient has no known allergies. MEDICATIONS hydrocodone bit/acetaminophen(VICODIN 5 MG-500 MG TAB) Take 1-2 tablet's) every six(6) hours as needed for pain. (Patient not taking: Reported on 11/23/2024) multivitamins(ONE-A-DAY ESSENTIAL TAB) Take one(1) tablet daily. (Patient not taking: Reported on 11/23/2024) No family history on file. Social History Tobacco Use Smoking status: Never Smokeless tobacco: Never Substance Use Topics Alcohol use: No Drug use: No BP 129/76 Pulse 90 Temp 36.8 ?C (98.3 ?F) Resp 18 Wt 74.1 kg (163 lb 5.8 oz) SpO2 98% Review of Systems Constitutional: Negative for chills, fever and malaise/fatigue. Respiratory: Negative for shortness of breath. Gastrointestinal: Negative for abdominal pain, nausea and vomiting. Genitourinary: Negative for hematuria. Musculoskeletal: Positive for falls. Negative for back pain, joint pain, myalgias and neck pain. Neurological: Negative for dizziness, loss of consciousness, weakness and headaches. Objective Physical Exam Constitutional: General: He is not in acute distress. Appearance: He is not toxic-appearing. HENT: Head: Normocephalic. Nose: Nose normal. Eyes: Pupils: Pupils are equal, round, and reactive to light. Cardiovascular: Rate and Rhythm: Normal rate. Pulmonary: Effort: Pulmonary effort is normal. No respiratory distress. Musculoskeletal: Arms: Cervical back: Normal range of motion. Comments: No pain to palpation on shoulder spinal region and neck. No pain with palpation over clavicular region. Pain with palpation over highlighted area. No crepitus. No deformities. Breath sounds equal unlabored. No pain with palpation over abdomen. No ecchymosis edema. Skin: General: Skin is warm and dry. Neurological: General: No focal deficit present. Mental Status: He is alert. ASSESSMENT/PLAN: 1. Rib pain - ICD9: 786.50, ICD10: R07.81 - XR RIBS/CHEST 3V AP RIB/OBLS/CXR LEFT IMPRESSION: No acute finding No acute findings noted on x-ray. Discussed rib pain management. Red flags for ER evaluation. Patient was educated on supportive therapies. Patient will follow up with primary care provider as needed. Patient was instructed to immediately proceed to emergency room for any new, worsening, or symptoms lasting longer than anticipated. The patient's clinical presentation is otherwise unremarkable at this time. Based on exam and clinical finding, the patient is stable for discharge. Plan of care was discussed with patient. Patient verbalizes understanding and agrees to plan of care. This note was generated using Mark media software. It may contain errors in wording, punctuation, or spelling. Jaymie Rees APRN.[facility] History of Present illness Narrative 11-23-2024 Jaymie Rees APRN.[facility] - 11/23/2024 9:44 AM EST Note Date & Type Note Facility 11-23-2024 History of Presen t illness Narrative Images from the original note were not included. Subjective HPI Nontoxic-appearing male presents urgent care chief complaint left-sided rib injury. Duration of symptom 4 days. Associated symptoms left-sided rib pain. Patient states was working on a flatbed truck when he lost his footing in the snow fell approximately 3 to 4 feet landing on his left side of his ribs. States his arm was tucked to the side and felt like his elbow pushed into his left ribs. Pain is underneath the left pectoral region. Denied any head neck or back pain. No LOC. Denied any other injuries. No abdominal pain vomiting. No blood in urine or stool. No shortness of breath or pleuritic pain. No hemoptysis. Denied any shoulder pain. OTC medications little success. States pain is 5 out of 10 at rest increased pain with taking a deep breath or movements. Denies history of blood thinner use. Past medical history prescription medications allergies reviewed. .Patient presents with: Fall: Fell from back of truck and landed on L side x4 days PAST MEDICAL HISTORY Diagnosis Date NEGATIVE MEDICAL HISTORY PAST SURGICAL HISTORY Procedure Laterality Date RPR 1ST INGUN HRNA AGE 4 YRS/> REDUCIBLE 12/31/2008 Left ALLERGIES Patient has no known allergies. MEDICATIONS hydrocodone bit/acetaminophen(VICODIN 5 MG-500 MG TAB) Take 1-2 tablet's) every six(6) hours as needed for pain. (Patient not taking: Reported on 11/23/2024) multivitamins(ONE-A-DAY ESSENTIAL TAB) Take one(1) tablet daily. (Patient not taking: Reported on 11/23/2024) No family history on file. Social History Tobacco Use Smoking status: Never Smokeless tobacco: Never Substance Use Topics Alcohol use: No Drug use: No BP 129/76 Pulse 90 Temp 36.8 C (98.3 F) Resp 18 Wt 74.1 kg (163 lb 5.8 oz) SpO2 98% Review of Systems Constitutional: Negative for chills, fever and malaise/fatigue. Respiratory: Negative for shortness of breath. Gastrointestinal: Negative for abdominal pain, nausea and vomiting. Genitourinary: Negative for hematuria. Musculoskeletal: Positive for falls. Negative for back pain, joint pain, myalgias and neck pain. Neurological: Negative for dizziness, loss of consciousness, weakness and headaches. Objective Physical Exam Constitutional: General: He is not in acute distress. Appearance: He is not toxic-appearing. HENT: Head: Normocephalic. Nose: Nose normal. Eyes: Pupils: Pupils are equal, round, and reactive to light. Cardiovascular: Rate and Rhythm: Normal rate. Pulmonary: Effort: Pulmonary effort is normal. No respiratory distress. Musculoskeletal: Arms: Cervical back: Normal range of motion. Comments: No pain to palpation on shoulder spinal region and neck. No pain with palpation over clavicular region. Pain with palpation over highlighted area. No crepitus. No deformities. Breath sounds equal unlabored. No pain with palpation over abdomen. No ecchymosis edema. Skin: General: Skin is warm and dry. Neurological: General: No focal deficit present. Mental Status: He is alert. ASSESSMENT/PLAN: 1. Rib pain - ICD9: 786.50, ICD10: R07.81 - XR RIBS/CHEST 3V AP RIB/OBLS/CXR LEFT IMPRESSION: No acute finding No acute findings noted on x-ray. Discussed rib pain management. Red flags for ER evaluation. Patient was educated on supportive therapies. Patient will follow up with primary care provider as needed. Patient was instructed to immediately proceed to emergency room for any new, worsening, or symptoms lasting longer than anticipated. The patient's clinical presentation is otherwise unremarkable at this time. Based on exam and clinical finding, the patient is stable for discharge. Plan of care was discussed with patient. Patient verbalizes understanding and agrees to plan of care. This note was generated using Mark media software. It may contain errors in wording, punctuation, or spelling. Jaymie Rees APRN.[employer]PERINT[employer]ENT [employer] documented in this encounter [facility] History of Present illness Narrative 11-23-2024 Fabiana Post RT(R) - 11/23/2024 9:40 AM EST Note Date & Type Note Facility 11-23-2024 History of Presen t illness Narrative Radiology Service Progress Note PATIENT NAME: Hilda Mcrae DATE OF SERVICE: November 23, 2024 TIME: 9:40 AM PATIENT IDENTITY VERIFICATION COMPLETED USING TWO (2) IDENTIFIERS: Name and Date of confirmed by patient verbally. FALL SCREENING: Has the patient had 2 falls in the last year or 1 fall with injury or currently using an Ambulatory Assistive Device (Walker, Cane, Wheelchair, Crutches, etc.)? No PATIENT GENDER DATA: Male PATIENT RELEVANT IMPLANT DATA REVIEWED: Not Applicable PATIENT PRESENTS WITH AN IMPLANTABLE OR ATTACHED DIET CLERK: No RADIOLOGY DEPARTMENT: General X-ray: Exam(s) Completed: Rib X-Ray: Left PERIPHERAL IV DATA: Not applicable SIGNED BY: RT Bryson(Loretta) November 23, 2024 9:40 AM documented in this encounter [facility] Progress note 11-23-2024 Note Date & Type Note Facility 11-23-2024 Note HNO ID: [id number] Author: FABIANA POST RT(R) Service: Radiology Author Type: Technologist Type: Progress Notes Filed: 11/23/2024 09:47 Note Text: Radiology Service Progress Note PATIENT NAME: Hilda Mcrae DATE OF SERVICE: November 23, 2024 TIME: 9:40 AM PATIENT IDENTITY VERIFICATION COMPLETED USING TWO (2) IDENTIFIERS: Name and Date of confirmed by patient verbally. FALL SCREENING: Has the patient had 2 falls in the last year or 1 fall with injury or currently using an Ambulatory Assistive Device (Walker, Cane, Wheelchair, Crutches, etc.)? No PATIENT GENDER DATA: Male PATIENT RELEVANT IMPLANT DATA REVIEWED: Not Applicable PATIENT PRESENTS WITH AN IMPLANTABLE OR ATTACHED DIET CLERK: No RADIOLOGY DEPARTMENT: General X-ray: Exam(s) Completed: Rib X-Ray: Left PERIPHERAL IV DATA: Not applicable SIGNED BY: RT Bryson(R) November 23, 2024 9:40 AM [facility] Evaluation note Note Date & Type Note Facility Evaluation note No assessment information [facility] Work Phone: Evaluation note Note Date & Type Note Facility Evaluation note Diagnosis Rib pain- Primary Chest pain, unspecified Rib pain Chest pain, unspecified documented in this encounter [facility] Evaluation note Note Date & Type Note Facility Evaluation note Diagnosis Rib pain Chest pain, unspecified documented in this encounter [facility] Reason for referral (narrative) Diagnostic Procedure Only (Urgent) - Closed Note Date & Type Note Facility Reason for referral (narrati ve) Specialty Diagnoses / Procedures Referred By Contac t Referred To Contact XR IMAGING Diagnoses Rib pain Procedures XR RIBS/CHEST 3V AP RIB/OBLS/CXR LEFT RADEX RIBS UNI W/POSTEROANT CH MINIMUM 3 VIEWS Jaymie Rees APRN.SUPERINTENDENT [employer] [address] [place] [address] [place] [address] Referral ID Status Reason Start Date Expiration Date V isits Requested Visits Authorized [id number] Closed Auto-Generate d Referral 11/23/2024 12/23/2025 1 1 [facility] Reason for referral (narrative) Diagnostic Procedure Only (Urgent) - Closed Note Date & Type Note Facility Reason for referral (narrati ve) Specialty Diagnoses / Procedures Referred By Contac t Referred To Contact XR IMAGING Diagnoses Rib pain Procedures XR RIBS/CHEST 3V AP RIB/OBLS/CXR LEFT RADEX RIBS UNI W/POSTEROANT CH MINIMUM 3 VIEWS Jaymie Rees APRN.SUPERINTENDENT [employer] [address] [place] [address] [place] [address] Referral ID Status Reason Start Date Expiration Date V isits Requested Visits Authorized [id number] Closed Auto-Generate d Referral 11/23/2024 12/23/2025 1 1 [facility] Reason for visit Narrative Diagnostic Procedure Only (Urgent) - Closed Note Date & Type Note Facility Reason for visit Narrative Specialty Diagnoses / Procedures Referred By Contac t Referred To Contact XR IMAGING Diagnoses Rib pain Procedures XR RIBS/CHEST 3V AP RIB/OBLS/CXR LEFT RADEX RIBS UNI W/POSTEROANT CH MINIMUM 3 VIEWS Jaymie Rees APRN.SUPERINT[employer]ENT [employer] [address] [place] [address] [place] [address] Referral ID Status Reason Start Date Expiration Date V isits Requested Visits Authorized [id number] Closed Auto-Generate d Referral 11/23/2024 12/23/2025 1 1 [facility] Chief Complaint and Reason for Visit Chief Complaint ABDOMINAL PAIN Advance Directives No Advanced Directives Records Found Advance Directive Response Recorded Date/ Time Living Will Yes August 18 10:58am Power of Industrial Automation Specialist Yes August 18 022 10:58am Name of Medical Power of Industrial Automation Specialist MENG- August 18, 2022 10:58am Summary Purpose Family History No Family History Records FoundNo Family History Records Found Additional Source Comments Goals (unrecognized section and content) Goals may be documented in a n alternate section (unrecognized sect ion and content) No Status Records FoundNo Status Records Found INFORMATION SOURCE (unrecogn ized section and content) DATE CREATED AUTHOR 11/17/2022 Yolanda [facility] DATE CREATED AUTHOR AUTHOR'S ORGANTORSTEN ATION 11/28/2024 [facility] Source Comments (unrecognize d section and content) In the event this informatio n is protected by the Federal Confidentiality of Alcohol and Drug Abuse Patient Records regulations: The Federal rules restrict any use of the information to criminally investigate or prosecute any alcohol or drug abuse patient.[facility] the event this information is protected by the Federal Confidentiality of Alcohol and Drug Abuse Patient Records regulations: The Federal rules restrict any use of the information to criminally investigate or prosecute any alcohol or drug abuse patient[facility] Reason for Visit (unrecogniz ed section and content) Reason Comments Fall Fell from back of tr uck and landed on L side x4 days Care Teams (unrecognized sec tion and content) Manufacturing Sr Engineer Relationship Specialty Start Date End Date Dung Tyler DO [address] [place] [address] PCP - General Family Medicine 11/23/24 Manufacturing Sr Engineer Relationship Specialty Start Date End Date Dung Tyler DO [address] [place] [address] PCP - General Family Medicine 11/23/24 FOR RECORDS PERTAINING TO PATIENTS WHO ARE OR HAVE BEEN ENROLLED IN A CHEMICAL DEPENDENCY/SUBSTANCEABUSE PROGRAM, SOME INFORMATION MAY BE OMITTED. This clinical summary was aggregated from multiple sources. Caution should be exercised in using it in the provision of clinical care. This summary normalizes information from multiple sources, and as a consequence, information in this document may materially change the coding, format and clinical context of patient data. In addition, data may be omitted in some cases. CLINICAL DECISIONS SHOULD BE BASED ON THE PRIMARY CLINICAL RECORDS. [facility] [employer] [facility]. provides no warranty or guarantee of the accuracy or completeness of information in this document.
--- NOTE | 2025-10-17 07:57 | ED.RN ---
One remaining suture from skin biopsy removed without difficulty with consent from ED MD.
[2025-10-17] MEDS: HYDROcodone Bitartrate/Apap 5/325 Tablet PO (08:24)
[2025-10-17 09:22] VITALS: BP 145/94; PULSE 77; RESP 16; O2SAT 100
[2025-10-17 10:42] VITALS: BMI 21.6
--- NOTE | 2025-10-17 12:08 | CM.ED ---
Social Work Reason for visit: Adv Directive SW met with patient and patients . Both confirm that patient does have a LW and HPOA completed. SW asked patient to bring in copy when able. No further needs identified at this time. Alexa Tineo, [employer]ID GL[employer] DOWEL MACHINE OPERATOR, PERSONAL FINANCIAL ADVISOR
[2025-10-17 12:15] VITALS: BP 145/94; PULSE 77; RESP 16; TEMP 36.6; O2SAT 100
== END 2025-10-17 12:15 | disposition home or self-care (01) ==
PROVIDERS: Emergency Provider Student in an Organized Health Care Education/Training Program; PCP Family Medicine; Visit Provider Student in an Organized Health Care Education/Training Program
DX: M54.32 Sciatica, left side (principal)
CPT/HCPCS: 96372; 99283

== ENCOUNTER 2025-10-20 05:45 | Inpatient (IN) | payer MEDICARE, SELFPAY ==
[2025-10-20] VITALS (7 sets, daily range): BP systolic 133–174; BP diastolic 71–99; PULSE 83–103; RESP 16–18; TEMP 36.1–37.2; O2SAT 95–100; BMI 22.0; BMI 21.4
--- NOTE | 2025-10-20 05:48 | CT_ITS ---
PROCEDURE: ABDOMEN/PELVIS W IV CONT ONLY 10/20/2025 REASON FOR EXAM: ABDOMINAL PAIN CONSTIPATION TECHNIQUE: Procedure Code: [id number] Modality: CT Procedure: ABDOMEN/PELVIS W IV CONT ONLY Coronal and Sagittal reconstruction series were provided. CONTRAST: OMNIPAQUE 350 VOLUME: 75 mL One or more dose reduction techniques were used (e.g., Automated exposure control, adjustment of the mA and/or kV according to patient size, use of iterative reconstruction technique. RADIATION DOSE SUMMARY: CTDlvol: 10.96 mGy DLP: 590.54 mGycm COMPARISON: CT abdomen and pelvis August 18, 2022 FINDINGS: Lung bases: Hiatal hernia measures 5 x 8 x 5.5 cm. Atelectasis in the lower base. Liver: Multiple simple liver cysts with the largest at the left lobe measures 2.8 x 4.1 cm. Gallbladder: Unremarkable. Spleen: Unremarkable. Pancreas: Unremarkable. Adrenals: Unremarkable. Kidneys: An 9 mm stone at the left ureteropelvic junction causing moderate left hydronephrosis. A 3 mm stone at the midpole of the left kidney. A 4 mm stone at the upper pole of the left kidney. No right hydronephrosis. Bladder: Unremarkable. Reproductive Organs: Unremarkable. Bowel: No bowel wall thickening. No bowel obstruction. Large amount of fecal load in the colon. Appendix: Unremarkable. Lymph nodes: No lymphadenopathy. Vasculature: No aneurysm. Atherosclerotic calcifications. Peritoneum / Retroperitoneum: No free air or free fluid. Bones: No acute bony abnormalities. CT/Abdomen/Pelvis W IV Cont ONLY IMPRESSION: An 9 mm stone at the left ureteropelvic junction causing moderate left hydronep hrosis. A 3 mm stone at the midpole of the left kidney. A 4 mm stone at the upper pole of the left kidney. Large hiatal hernia. Reading Location: [facility]
[2025-10-20 06:00] LABS: Hematocrit 47.2 % (40-54); Hemoglobin 15.1 g/dL (13.0-16.5); Immature Granulocytes Count 0.110 X10^3/uL (0.0-0.0); Mean Corp Hgb Conc 32.0 g/dL (32-36); Mean Corpuscular Volume 87.9 fL (80-94); Mean Platelet Vol. 9.9 fl (6.2-12.0); NRBC Flagged by Analyzer 0 % (0-5); Platelet Count 299 K/mm3 (150-450); RBC Distribution Width CV 13.9 % (11.6-14.6); RBC Distribution Width SD 44.1 fl (35.1-43.9); Red Blood Count 5.37 M/mm3 (4.6-6.2); White Blood Count 13.0 K/mm3 (4.4-11.0)
[2025-10-20 06:04] LABS: Mucous, Urine 0 SEEN /hpf (<or=2+); Squamous Epithelial Cells - UA 0 SEEN /hpf (0-5)
[2025-10-20 06:06] LABS: Color, Urine Yellow (Yellow); Glucose, Dipstick Normal (Normal); Ketone-Dipstick Negative (Negative); Leukocyte Esterase-Dipstick Negative /ul (Negative); Nitrite-Dipstick Negative (Negative); Occult Blood-Urine 150 /ul (Negative); Protein-Dipstick 30 mg/dl (Negative); Specific Gravity, Urine 1.020 (1.002-1.030); Urine Bilirubin Dipstick Negative (Negative)
[2025-10-20 06:22] LABS: Red Blood Cells-Urine 10-25 SEEN /hpf (0-5)
[2025-10-20] MEDS: 0.9% Normal Saline (1000mL) 1,000 ML 999 ML IV (06:29)
[2025-10-20 06:35] LABS: AST(SGOT) 15 U/L (<=37); Alanine Aminotransfer ALT/SGPT 21 U/L (<=46); Albumin, Serum 3.7 g/dL (3.4-4.8); Alkaline Phosphatase 136 U/L (40-129); Anion Gap 11 (5-15); BUN 29 mg/dL (4-19); BUN/Creat Ratio 24.7 RATIO (10-20); Calcium,Total 9.1 mg/dL (7.6-11.0); Carbon Dioxide 25.7 mmol/L (21.0-32.0); Chloride 101 mmol/L (98-108); Estimated Creatinine Clearance 59.79 ml/min (50-250); Globulin 2.9 g/dL (2.2-4.2); Glucose 129 mg/dL (70-99); Potassium 3.5 mmol/L (3.3-5.1)
--- OUTSIDE RECORDS SUMMARY | 2025-10-20 06:49 | XMS RPT_ITS | CCD ---
Author Organization [facility]iniSy[facility] Care Team Providers Care Engraving Supervisor Name Role Phone Cruz Hinson Attending Unavailable [...] Ketorolac Active 10 MG PO Q8H 15 June 27, 2021 12:00am multivitamins(ONE -A-DAY ESSENTIAL [...] Test Name Value Interpretation Reference Range Facility [facility] 11-23-2024 CN Office Visit (UCWSTR ) HILDA MCRAE ([id number]) 1955 M Date Time Provider Department 11/23/24 9:15 AM JAYMIE REES [facility] During your visit today, we recorded the following information about you: Temperature Pulse Respiration Blood pressure 98.3 degrees 90/minute 18/minute 129/76 Weight 74.1 kg Jaymie Rees, AMADOR.SUPERVISOR [employer] 11/23/2024 10:00 AM Signed Subjective HPI Nontoxic-appearing [...] Patient has no known allergies. MEDICATIONS hydrocodone bit/acetaminophen(GERMAN ANDREY 5 MG-500 MG TAB) [...] of care. This note was generated using FORA.tv software. It may contain errors in wording, punctuation, or spelling. Jaymie Rees APRN.SUPERVISOR [employer] Allergies As of Date: 11/23/2024 (No Known Allergies) Date Reviewed: 11/23/2024 Reviewed by: Jaymie Rees APRN.SUPERVISOR [employer] - Fully Assessed Reason for Visit: Fall [218] Cmt: Fell from back of truck and landed on L side x4 days Primary Visit Diagnosis:Rib pain [R07.81] Order(s):XR RIBS/CHEST 3V AP RIB/OBLS/CXR LEFT [[id number]] Order #: [id number] FUTURE Prescriptions as of 11/23/2024 - hydrocodone bit/acetaminophen(GERMAN ANDREY 5 MG-500 MG TAB) Take 1-2 tablet's) every six(6) hours as needed for pain. - multivitamins(ONE-A-D AY ESSENTIAL TAB) Take one(1) tablet daily. (more content not included)... Normal [facility] XR RIB/CHST 3V AP RIB/OBL/CH ST [...] spurring patellofemoral joint. IMPRESSION: No acute finding Clamp Operator: PSC Transcribe Date/Time: Nov 23 2024 9:49A Dictated by : DUNG CARTWRIGHT MD This examination was interpreted and the report reviewed and electronically signed by: DUNG CARTWRIGHT MD on Nov 23 2024 9:50AM EST [id number] Normal [facility] XR Ribs - left Views and Nichole st PAon 11-23-2024 IMPRESSION: No acute finding Clamp Operator: PSCB Transcribe Date/Time: Nov 23 2024 9:49A [...] patellofemoral joint. IMPRESSION IMPRESSION: No acute finding Clamp Operator: MONE Transcribe Date/Time: Nov 23 2024 9:49A Dictated by : DUNG CARTWRIGHT MD This examination was interpreted and the report reviewed and electronically signed by: DUNG CARTWRIGHT MD on Nov 23 2024 9:50AM EST [facility] Radiology Study observation (narrative) [facility] XR Ribs - left Views and Nichole st PAOrdered By: Ccf Provider on 11-23-2024 [facility] 12 Lead EKGon 08-18-2022 12 Lead EKG [facility] Cardiovascular Services [address] [place] [address] 12 Lead EKG 08/18/22 1224 MR#: [id number] Acct: [id number] Name: HILDA MCRAE Rep #: [id number] : 1955 67 From: Blas Rivera MD [...] ECG Confirmed by BLAS RIVERA MD ([id number]), marketing editor REGINA MACDONALD ([id number]) on 08/20/2022 7:59:57 AM Referred By: Confirmed By:BLAS RIVERA MD 08/20/22 0759 Date Blas Rivera MD CC: Dr. Raji Tristan DO; Dr. Dung Tyler DO Signed Normal [facility] 12 Lead EKG [facility] Cardiovascular Services [address] [place] [address] 12 Lead EKG 08/18/22 1112 MR#: [id number] Acct: [id number] Name: HILDA MCRAE Rep #: [id number] : 1955 67 From: Blas Rivera MD [...] Abnormal ECG Confirmed by BLAS RIVERA MD ([id number]), marketing editor REGINA MACDONALD ([id number]) on 08/20/2022 7:59:16 AM Referred By: ANGEL Confirmed By:BLAS RIVERA MD 08/20/22 0759 Date Blas Rivera MD CC: Dr. Raji Tristan DO; Dr. Dung Tyler DO Signed Normal [facility] Abdomen/Pelvis W IV Cont ONL Yon 08-18-2022 Abdomen/Pelvis W IV Cont ONLY [facility] Imaging Services [address] [facility] [place] [address] Abdomen/Pelvis W IV Cont ONLY MR#: [id number] Acct: [id number] Name: HILDA MCRAE Rep #: [id number] : 1955 M 67 From: Ryan aguirre MD PCP: Dr. Dung Tyler DO Status: REG ER Study: Abdomen/Pelvis W IV Cont ONLY Date of Exam: Exam# [id number] Ordering Dr: Sunburg,Raji DO STUDY: CT ABDOMEN AND PELVIS WITH [...] Raji Tristan, DO; Dr. Dung Tyler, DO Clamp Operator: Signed Normal [facility] Absolute lymphocyte counton 08-18-2022 Lymphocytes Auto (Unsp spec) [#/Vol] 1.42 10*3/uL 0.83-4.51 [facility] Work Phone: Basic Metabolic Profile (BMP )on 08-18-2022 BUN/CRE 10.6 RATIO Normal 10-20 [facility] Comment on above: Performed By: #### L 100.0100, L500.2500 ####[facility] [address] [place], [address] CA,Total 9.7 mg/dL Normal 8.5-10.1 [facility] Comment on above: Performed By: #### L 100.0100, L500.2500 ####[facility] [address] [place], [address] Chloride [Moles/Vol] 102 mmol/L Normal 98-107 [facility] Comment on above: Performed By: #### L 100.0100, L500.2500 ####[facility] [address] [place], [address] CO2 [Moles/Vol] 26.0 mmol/L Normal 21.0-32.0 [facility] Comment on above: Performed By: #### L 100.0100, L500.2500 ####[facility] [address] [place], [address] Creatinine [Mass/Vol] 1.23 mg/dL Normal 0.70-1.30 [facility] Comment on above: Result Comment: The validity of the calculated GFR GFRAA in patients over 70 years has not been determined. Clinical correlation is essential. Performed By: #### L 100.0100, L500.2500 ####[facility] [address] [place], [address] ECRCL 55.32 ml/min Normal [facility] Comment on above: Performed By: #### L 100.0100, L500.2500 ####[facility] [address] [place], [address] EST GFR - AA 75 mL/min Normal >60 [facility] Comment on above: Result Comment: Afri can Cameroonian GFR Calc Performed By: #### L 100.0100, L500.2500 ####[facility] [address] [place], [address] GAP 8 Normal 5-15 [facility] Comment on above: Performed By: #### L 100.0100, L500.2500 ####[facility] [address] [place], [address] GFR/1.73 sq M.predicted among non-blacks MDRD (S/P/Bld) [Vol rate/Area] 62 mL/min/{1.73_m2} Normal >60 [facility] Comment on above: Result Comment: Non- GFR Calc Performed By: #### L 100.0100, L500.2500 ####[facility] [address] [place], [address] Glucose [Mass/Vol] 131 mg/dL High 74-106 [facility] Comment on above: Result Comment: Fast ing Glucose result greater than or equal to 126 mg/dL suggests DIABETES MELLITUS per A.D.A. criteria. Performed By: #### L 100.0100, L500.2500 ####[facility] [address] [place], [address] Potassium [Moles/Vol] 4.1 mmol/L Normal 3.5-5.1 [facility] Comment on above: Performed By: #### L 100.0100, L500.2500 ####[facility] [address] [place], [address] Sodium [Moles/Vol] 136 mmol/L Normal 136-145 [facility] Comment on above: Performed By: #### L 100.0100, L500.2500 ####[facility] [address] [place], [address] Urea nitrogen [Mass/Vol] 13 mg/dL Normal 7-18 [facility] Comment on above: Performed By: #### L 100.0100, L500.2500 ####[facility] [address] [place], [address] Basophil percentageon 2021 Basophil percentage 0 SEEN /hpf 0-5 [facility] Work Phone: Basophils/100 WBC (Bld) 0.2 % 0-1 [facility] Work Phone: Bilirubin [Mass/Vol] 0.70 mg/dL 0.20-1.00 [facility] Work Phone: Comment on above: For patients on eltr ombopag therapy, use of Dimension Crescent TBIL is not recommended. Chloride [Moles/Vol] 102 mmol/L 98-107 [facility] Work Phone: Eosinophils/100 WBC (Bld) 0.1 % 0-5 [facility] Work Phone: Glucose [Mass/Vol] 131 mg/dL 74-106 [facility] Work Phone: Comment on above: Fasting Glucose resu lt greater than or equal to 126 mg/dL suggests DIABETES MELLITUS per A.D.A. criteria. Neutrophils (Bld) [#/Vol] 12.0 10*3/uL 2.0-7.7 [facility] Work Phone: Neutrophils/100 WBC (Bld) 80.8 % 47-70 [facility] Work Phone: Potassium [Moles/Vol] 4.1 mmol/L 3.5-5.1 [facility] Work Phone: Protein [Mass/Vol] 8.0 g/dL 6.4-8.2 [facility] Work Phone: Sodium [Moles/Vol] 136 mmol/L 136-145 [facility] Work Phone: WBC (Bld) [#/Vol] 14.9 10*3/uL 4.4-11.0 [facility] Work Phone: Bilirubin Test strip Ql (U)o n 08-18-2022 Bilirubin Ql (U) Negative Negative [facility] Work Phone: Blood erythrocytes count (nu mber/volume)on 08-18-2022 RBC (Bld) [#/Vol] 5.69 10*6/uL 4.6-6.2 [facility] Work Phone: Blood hemoglobin measurement (mass/volume)on 08-18-2022 Hemoglobin (Bld) [Mass/Vol] 16.0 g/dL 13.0-16.5 [facility] Work Phone: Blood lymphocytes/100 leukoc yteson 08-18-2022 Lymphocytes/100 WBC (Bld) 9.6 % 19-41 [facility] Work Phone: Blood monocytes/100 leukocyt eson 08-18-2022 Monocytes/100 WBC (Bld) 8.8 % 0-10 [facility] Work Phone: Blood platelet mean volumeon 08-18-2022 Platelet mean volume (Bld) [Entitic vol] 10.5 fL 6.2-12.0 [facility] Work Phone: CBC W/Diff, Automatedon Absolute Lymph 1.42 X10 3/uL Normal 0.83-4.51 [facility] Comment on above: Performed By: #### L 100.0100, L500.2500 #### [facility] Laboratory [address] [place], [address] Absolute Neut 12.0 X10 3/uL High 2.0-7.7 [facility] Comment on above: Performed By: #### L 100.0100, L500.2500 #### [facility] [address] [place], [address] Basophils/100 WBC (Bld) 0.2 % Normal 0-1 [facility] Comment on above: Performed By: #### L 100.0100, L500.2500 #### [facility] [address] [place], [address] Eosinophils/100 WBC (Bld) 0.1 % Normal 0-5 [facility] Comment on above: Performed By: #### L 100.0100, L500.2500 #### [facility] [address] [place], [address] Erythrocyte distribution width (RBC) [Ratio] 13.1 % Normal 11.6-14.6 [facility] Comment on above: Performed By: #### L 100.0100, L500.2500 #### [facility] [address] [place], [address] Hematocrit (Bld) [Volume fraction] 49.0 % Normal 40-54 [facility] Comment on above: Performed By: #### L 100.0100, L500.2500 #### [facility] [address] [place], [address] Hemoglobin (Bld) [Mass/Vol] 16.0 g/dL Normal 13.0-16.5 [facility] Comment on above: Performed By: #### L 100.0100, L500.2500 #### [facility] [address] [place], [address] IG% 0.500 Normal 0.0-0.9 [facility] Comment on above: Result Comment: IG% - Immature Granulocytes (promyelocytes, myelocytes and metamyelocytes) > 1% indicates that a LEFT SHIFT is Present. Performed By: #### L 100.0100, L500.2500 #### [facility] [address] [place], [address] Lymphocytes/100 WBC (Bld) 9.6 % Low 19-41 [facility] Comment on above: Performed By: #### L 100.0100, L500.2500 #### [facility] [address] [place], [address] MCH (RBC) [Entitic mass] 28.1 pg Normal 27.0-32.0 [facility] Comment on above: Performed By: #### L 100.0100, L500.2500 #### [facility] [address] [place], [address] MCHC (RBC) [Mass/Vol] 32.7 g/dL Normal 32-36 [facility] Comment on above: Performed By: #### L 100.0100, L500.2500 #### [facility] [address] [place], [address] MCV (RBC) [Entitic vol] 86.1 fL Normal 80-94 [facility] Comment on above: Performed By: #### L 100.0100, L500.2500 #### [facility] [address] [place], [address] Monocytes/100 WBC (Bld) 8.8 % Normal 0-10 [facility] Comment on above: Performed By: #### L 100.0100, L500.2500 #### [facility] [address] [place], [address] Neutrophils/100 WBC (Bld) 80.8 % High 47-70 [facility] Comment on above: Performed By: #### L 100.0100, L500.2500 #### [facility] [address] [place], [address] Nucleated RBC (Bld) [#/Vol] 0 10*3/uL Normal 0-5 [facility] Comment on above: Performed By: #### L 100.0100, L500.2500 #### [facility] [address] [place], [address] Platelet mean volume (Bld) [Entitic vol] 10.5 fL Normal 6.2-12.0 [facility] Comment on above: Performed By: #### L 100.0100, L500.2500 #### [facility] [address] [place], [address] Platelets (Bld) [#/Vol] 258 10*3/uL Normal 150-450 [facility] Comment on above: Performed By: #### L 100.0100, L500.2500 #### [facility] [address] [place], [address] RBC (Bld) [#/Vol] 5.69 10*6/uL Normal 4.6-6.2 [facility] Comment on above: Performed By: #### L 100.0100, L500.2500 #### [facility] [address] [place], [address] RDW SD 40.7 fl Normal 35.1-43.9 [facility] Comment on above: Performed By: #### L 100.0100, L500.2500 #### [facility] [address] [place], [address] WBC (Bld) [#/Vol] 14.9 10*3/uL High 4.4-11.0 [facility] Comment on above: Performed By: #### L 100.0100, L500.2500 #### [facility] [address] [place], [address] Determination of erythrocyte mean corpuscular volume (MCV)on 08-18-2022 MCV (RBC) [Entitic vol] 86.1 fL 80-94 [facility] Work Phone: Direct bilirubinon 10-04-202 2 Bilirubin.direct [Mass/Vol] 0.19 mg/dL 0.00-0.30 [facility] Work Phone: Emergency Department Summary on 08-18-2022 Emergency Department Summary [facility] Medical Records Department [address] [place] [address] Emergency Department Summary 08/18/22 MR#: [id number] Acct: [id number] Name: HILDA MCRAE Rep #: [id number] : 1955 67 From: Raji Tristan DO [...] was doing his EKG at the time. [facility] Medical History Back pain Home Medications gabapentin [...] Skin n (more content not included)... Normal [facility] Hematocrit Auto (Bld) [Volum e fraction]on 08-18-2022 Hematocrit (Bld) [Volume fraction] 49.0 % 40-54 [facility] Work Phone: Ketones Test strip Ql (U)on 08-18-2022 Ketones Ql (U) Negative Negative [facility] Work Phone: [id number] 08-18-2022 TROPONIN-I HS 22 pg/mL Normal 3.0-78.0 [facility] Comment on above: Order Comment: 'TROP ' Serial specimen #1, #2 or #3: 2 Result Comment: Plea se Note: New Test Units and Gender Specific Reference Ranges. For more information see Policy Stat Procedure Crescent High Sensitivity Troponin (TNIH) and attachments. Performed By: #### L 501.4020 #### [facility] [address] [place], [place], [address] TROPONIN-I HS 26 pg/mL Normal 3.0-78.0 [facility] Comment on above: Order Comment: 'TROP ' Serial specimen #1, #2 or #3: 1 Result Comment: Plea se Note: New Test Units and Gender Specific Reference Ranges. For more information see Policy Stat Procedure Crescent High Sensitivity Troponin (TNIH) and attachments. Performed By: #### L 501.4020, L501.2450 #### [facility] [address] [place], [address] Laboratory - Chemistry and C hemistry - challengeon 08-18-2022 ALP [Catalytic activity/Vol] 146 U/L 45-117 [facility] Work Phone: ALT [Catalytic activity/Vol] 18 U/L 16-61 [facility] Work Phone: CO2 [Moles/Vol] 26.0 mmol/L 21.0-32.0 [facility] Work Phone: Globulin (S) [Mass/Vol] 4.4 g/dL 2.2-4.2 [facility] Work Phone: Lipase [Catalytic activity/Vol] 90 U/L 73-393 [facility] Work Phone: Urea nitrogen/Creatinine [Mass ratio] 10.6 mg/mg 10-20 [facility] Work Phone: Laboratory - Hematology and Cell countson 08-18-2022 Erythrocyte distribution width (RBC) [Entitic vol] 40.7 fL 35.1-43.9 [facility] Work Phone: Erythrocyte distribution width (RBC) [Ratio] 13.1 % 11.6-14.6 [facility] Work Phone: Immature granulocytes/100 WBC (Bld) 0.500 % 0.0-0.9 [facility] Work Phone: Comment on above: IG% - Immature Granu locytes (promyelocytes, myelocytes and metamyelocytes) > 1% indicates that a LEFT SHIFT is Present. MCH (RBC) [Entitic mass] 28.1 pg 27.0-32.0 [facility] Work Phone: Nucleated RBC/100 WBC (Bld) [Ratio] 0 % 0-5 [facility] Work Phone: Lipaseon 08-18-2022 Lipase [Catalytic activity/Vol] 90 U/L Normal 73-393 [facility] Comment on above: Order Comment: 'TROP ' Serial specimen #1, #2 or #3: 1 Performed By: #### L 501.4020, L501.2450 #### [facility] [address] [place], [address] Liver Profileon 08-18-2022 Albumin [Mass/Vol] 3.6 g/dL Normal 3.2-5.0 [facility] Comment on above: Performed By: #### L 500.3400 #### [facility] [address] [place], [address] ALK P 146 U/L High 45-117 [facility] Comment on above: Performed By: #### L 500.3400 #### [facility] [address] [place], [address] ALT [Catalytic activity/Vol] 18 U/L Normal 16-61 [facility] Comment on above: Performed By: #### L 500.3400 #### [facility] [address] [place], [address] AST [Catalytic activity/Vol] 17 U/L Normal 15-37 [facility] Comment on above: Performed By: #### L 500.3400 #### [facility] [address] [place], [address] Bilirubin [Mass/Vol] 0.70 mg/dL Normal 0.20-1.00 [facility] Comment on above: Result Comment: For patients on eltrombopag therapy, use of Dimension Crescent TBIL is not recommended. Performed By: #### L 500.3400 #### [facility] [address] [place], [address] Bilirubin.direct [Mass/Vol] 0.19 mg/dL Normal 0.00-0.30 [facility] Comment on above: Performed By: #### L 500.3400 #### [facility] [address] [place], [address] Globulin (S) [Mass/Vol] 4.4 g/dL High 2.2-4.2 [facility] Comment on above: Performed By: #### L 500.3400 #### [facility] [address] [place], [address] T PROT 8.0 g/dL Normal 6.4-8.2 [facility] Comment on above: Performed By: #### L 500.3400 #### [facility] [address] [place], [place], [id number] MCHC Auto (RBC) [Mass/Vol]on 08-18-2022 MCHC (RBC) [Mass/Vol] 32.7 g/dL 32-36 [facility] Work Phone: Mucus LM Ql (Urine sed)on Mucus Ql (Urine sed) 0 SEEN /hpf [facility] Work Phone: Nitrite Test strip Ql (U)on 08-18-2022 Nitrite Ql (U) Negative Negative [facility] Work Phone: No Panel Informationon 08-18 Troponin I High Sensitivity 22 pg/mL 3.0-78.0 [facility] Work Phone: Comment on above: Please Note: New Vannessa t Units and Gender Specific Reference Ranges. For more information see Policy Stat Procedure Crescent High Sensitivity Troponin (TNIH) and attachments. Estimated Creatinine Clearance Calc 55.32 ml/min [facility] Work Phone: Estimated GFR (MDRD) Amer 75 mL/min >60 [facility] Work Phone: Comment on above: GFR Calc Estimated GFR (MDRD) Non-Af Amer 62 mL/min >60 [facility] Work Phone: Comment on above: Non- GFR Calc Platelets bldon 08-18-2022 Platelets (Bld) [#/Vol] 258 10*3/uL 150-450 [facility] Work Phone: Protein Test strip Ql (U)on 08-18-2022 Protein Ql (U) 15 mg/dl Negative [facility] Work Phone: Serum or plasma albumin carlton urement (mass/volume)on 08-18-2022 Albumin [Mass/Vol] 3.6 g/dL 3.2-5.0 [facility] Work Phone: Serum or plasma calcium carlton urement (mass/volume)on 08-18-2022 Calcium [Mass/Vol] 9.7 mg/dL 8.5-10.1 [facility] Work Phone: Serum or plasma creatinine m easurement (mass/volume)on 08-18-2022 Creatinine [Mass/Vol] 1.23 mg/dL 0.70-1.30 [facility] Work Phone: Comment on above: The validity of the calculated GFR & GFRAA in patients over 70 years has not been determined. Clinical correlation is essential. Serum or plasma urea nitroge n measurement (mass/volume)on 08-18-2022 Urea nitrogen [Mass/Vol] 13 mg/dL 7-18 [facility] Work Phone: Squamous epithelial cells de tection in urine sediment by light microscopyon 08-18-2022 Epithelial cells.squamous LM Ql (Urine sed) 0 SEEN /hpf 0-5 [facility] Work Phone: Thin prep Papanicolaou smear with manual screeningon 08-18-2022 Thin prep Papanicolaou smear with manual screening 17 U/L 15-37 [facility] Work Phone: Thin prep Papanicolaou smear with manual screening 8 5-15 [facility] Work Phone: Urinalysis, Completeon 08-18 RBC 0-5 SEEN Normal 0-5 [facility] Comment on above: Order Comment: COLLE CTOR TO SPECIFY Performed By: #### L 400.0001 #### [facility] [address] [place], [address] BACTERIA 0 SEEN Normal None Seen [facility] Comment on above: Order Comment: RUDY CTOR TO SPECIFY Performed By: #### L [id number] #### [facility] [address] [place], [address] EPI,SQUAMOUS 0 SEEN Normal 0-5 [facility] Comment on above: Order Comment: RUDY CTOR TO SPECIFY Performed By: #### L [id number] #### [facility] [address] [place], [address] Mucus Ql (Urine sed) 0 SEEN Normal [facility] Comment on above: Order Comment: RUDY CTOR TO SPECIFY Performed By: #### L [id number] #### [facility] [address] [place], [address] WBC 0 SEEN Normal 0-5 [facility] Comment on above: Order Comment: RUDY CTOR TO SPECIFY Performed By: #### L [id number] #### [facility] [address] [place], [address] Urine blood detectionon 10-0 RBC Ql (U) 10 /ul Negative [facility] Work Phone: RBC Ql (U) 0-5 SEEN /hpf 0-5 [facility] Work Phone: Urine clarityon 08-18-2022 Clarity (U) Clear Clear [facility] Work Phone: Urine color determinationon 08-18-2022 Color (U) Yellow Yellow [facility] Work Phone: Urine glucose detectionon Glucose Ql (U) Normal mg/dl Normal [facility] Work Phone: Urine leukocyte esterase det ection by dipstickon 08-18-2022 Leukocyte esterase Test strip Ql (U) Negative Negative [facility] Work Phone: Urine pHon 08-18-2022 pH (U) 7.0 [pH] 5.0 - 8.0 [facility] Work Phone: Urine sediment bacteria coun t by microscopy (number/high power field)on 08-18-2022 Bacteria LM.HPF (Urine sed) [#/Area] 0 /[HPF] None Seen [facility] Work Phone: Urine specific gravity measu rementon 08-18-2022 Specific gravity (U) [Rel density] 1.005 1.002-1.030 [facility] Work Phone: Urobilinogen Auto test strip Ql (U)on 08-18-2022 Urobilinogen Ql (U) Normal mg/dl Normal [facility] Work Phone: Vital Signs Date Time Vital Sign Value Performing Clinician Facility 11-23-2024 09:23-0500 Body temperature 98.29 [degF] Jaymie Rees [employer] Work Phone: [facility] 11-23-2024 09:23-0500 Body weight 74.1 kg Jaymie Rees [employer] Work Phone: [facility] 11-23-2024 09:23-0500 Diastolic blood pressure 76 mm[Hg] Jaymie Bermeojuan [employer]PER[employer]OR [employer] Work Phone: [facility] 11-23-2024 09:23-0500 Heart rate 90 /min Jaymie Rees [employer]OR [employer] Work Phone: [facility] 11-23-2024 09:23-0500 Respiratory rate 18 /min Jaymie Rees [employer] Work Phone: [facility] 11-23-2024 09:23-0500 SaO2% (BldA) [Mass fraction] 98 % Jaymie Rees [employer] Work Phone: [facility] 11-23-2024 09:23-0500 Systolic blood pressure 129 mm[Hg] Jaymie Rees [employer] Work Phone: [facility] 08-18-2022 15:48-0400 Diastolic blood pressure 77 mm[Hg] [facility] Work Phone: 08-18-2022 15:48-0400 Heart rate 86 /min [facility] Work Phone: 08-18-2022 15:48-0400 Respiratory rate 24 /min [facility] Work Phone: 08-18-2022 15:48-0400 SaO2% (BldA) [Mass fraction] 98 % [facility] Work Phone: 08-18-2022 15:48-0400 Systolic blood pressure 156 mm[Hg] [facility] Work Phone: 08-18-2022 10:58-0400 Body height 182.88 cm [facility] Work Phone: 08-18-2022 10:58-0400 Body mass index (BMI) [Ratio] 20.3 kg/m2 [facility] Work Phone: 08-18-2022 10:58-0400 Body temperature 98.2 [degF] [facility] Work Phone: 08-18-2022 10:58-0400 Body weight 68.03 kg [facility] Work Phone: Encounters Encounter Date Encounter Type Care Provider Facility Start: 11-23-2024 End: 11-23-2024 Subsequent hospital visit by physician Xr [facility] Work Phone: Radiology Comment on above: Rib pain [R07.81] Start: 11-23-2024 End: 11-23-2024 ambulatory [facility] Facility:[facility] Start: 11-23-2024 End: 11-23-2024 Office outpatient new 20 minutes Jaymie Rees APRN.CNP Work Phone: [facility] Comment on above: Rib pain (Primary Dx ) Start: 10-21-2022 ambulatory [facility] Facility:[facility] Start: 08-18-2022 End: 08-18-2022 Emergency department patient visit [facility] Facility:[facility] Start: 08-18-2022 End: 08-18-2022 Emergency department patient visit [facility] Department Procedures Date Procedure Procedure Detail Performing Clinician Start: 11-23-2024 Radex ribs uni w/posteroant ch minimum 3 views Jaymie Rees APRN.CNP Work Phone: Start: 08-18-2022 Computed tomography of abdomen and pelvis with intravenous contrast Plan of Treatment Date Care Activity Detail Author Start: 04-30-2031 Urine microalbumin profile DTaP,Tdap,Td Vaccine (2 - Td or Tdap) [facility] Start: 2029 RSV Vaccine (1 - 1-dose 75+ series) RSV Vaccine (1 - 1-dose 75+ series) [facility] Start: 11-15-2024 Advance Directive Discussion Advance Directive Discussion [facility] Start: 07-16-2024 Covid-19 Vaccine ( season) Covid-19 Vaccine ( season) [facility] Start: 07-16-2024 Influenza vaccination Influenza Vaccine (#1) [facility] Start: 2004 Pneumococcal Vaccine: 50+ (1 of 1 - PCV) Pneumococcal Vaccine: 50+ (1 of 1 - PCV) [facility] Start: 2004 Shingrix Vaccine (1 of 2) Shingrix Vaccine (1 of 2) [facility] Start: 1999 Diabetes Screening Diabetes Screening [facility] Start: 1999 Screening for malignant neoplasm of colon [facility] Start: 1989 Lipid panel Lipid Screening [facility] Start: 1972 Anxiety Screening Anxiety Screening [facility] Start: 1972 Depression Screening Depression Screening [facility] Start: 1972 Hepatitis C screening Hepatitis C Screening [facility] Patient Education ED Abdominal P ain Unkn Cause Male... [facility] Work Phone: Patient referral [facility] Work Phone: Immunizations Immunization Date Immunization Notes Care Provider Gage silver 04-30-2021 tetanus toxoid, redu lidia diphtheria toxoid, and acellular pertussis vaccine, adsorbed [facility] Work Phone: Payers Date Payer Category Payer Medicare AETNA MEDICARE A ETNA MEDICARE PPO [id number] 2023-Present [phone] [address] [place] [address] PPO [id number] 2022 Private Health Insurance 101 [id number] 2022 Self-pay [id number] 2006 Unknown DARLINE [id number] Unknown [id number] Unknown [id number] Unknown [id number] Social History Date Type Detail Facility Start: 08-18-2022 Tobacco smoking stat [facility] Unknown if ever smoked [facility] Work Phone: Start: 1955 Sex Assigned At Male [facility] Work Phone: Start: 11-23-2024 Tobacco smoking stat [email or web address]IS Never smoked tobacco [facility] Start: 11-23-2024 Tobacco use and exposure Smokeless tobacco non-user [facility] Start: 11-23-2024 Alcoholic beverage intake Current non-drinker of alcohol (finding) [facility] Start: 11-23-2024 History of Social function [facility] Start: 11-23-2024 Tobacco use panel [facility] Start: 1955 Sex assigned at Not on file [facility] Progress note 11-23-2024 Note Date & Type Note Facility 11-23-2024 Note HNO ID: [id number] Author: JAYMIE REES APRN.SUPERVISOR [employer] Service: ? Author Type: Nurse Practitioner Type: [...] of care. This note was generated using FORA.tv software. It may contain errors in wording, punctuation, or spelling. Jaymie Rees APRN.[facility] History of Present illness Narrative 11-23-2024 [...] of care. This note was generated using FORA[employer]tv software. It may contain errors in wording, punctuation, or spelling. Jaymie Rees APRN.SUPERVISOR [employer] documented in this encounter [facility] History of Present illness Narrative 11-23-2024 Fabiana [...] PATIENT PRESENTS WITH AN IMPLANTABLE OR ATTACHED PROFESSOR OF MATHEMATICS: No RADIOLOGY DEPARTMENT: General X-ray: Exam(s) Completed: Rib X-Ray: Left PERIPHERAL IV DATA: Not applicable SIGNED BY: RT Bryson(Loretta) November 23, 2024 9:40 AM documented in this encounter [facility] Progress note 11-23-2024 Note Date & Type Note Facility 11-23-2024 Note HNO ID: [id number] Author: FABIANA POST RT(R) Service: Radiology Author [...] PATIENT PRESENTS WITH AN IMPLANTABLE OR ATTACHED PROFESSOR OF MATHEMATICS: No RADIOLOGY DEPARTMENT: General X-ray: Exam(s) Completed: Rib X-Ray: Left PERIPHERAL IV DATA: Not applicable SIGNED BY: RT Bryson(R) November 23, 2024 9:40 AM [facility] Evaluation note Note Date & Type Note Facility Evaluation note No assessment information [facility] Work Phone: Evaluation note Note Date & Type Note Facility Evaluation note Diagnosis Rib pain- Primary Chest pain, unspecified Rib pain Chest pain, unspecified documented in this encounter [facility] Evaluation note Note Date & Type Note Facility Evaluation note Diagnosis Rib pain Chest pain, unspecified documented in this encounter [facility] Reason for referral (narrative) Diagnostic Procedure Only (Urgent) - Closed Note Date & Type Note Facility Reason for referral (narrati ve) Specialty Diagnoses / Procedures Referred By Contac t Referred To Contact XR IMAGING Diagnoses Rib pain Procedures XR RIBS/CHEST 3V AP RIB/OBLS/CXR LEFT RADEX RIBS UNI W/POSTEROANT CH MINIMUM 3 VIEWS Jaymie Rees APRN.SUPERVISOR [employer] [address] [place] [address] [place] [address] Referral ID Status Reason Start Date Expiration Date V isits Requested Visits Authorized [id number] Closed Auto-Generate d Referral 11/23/2024 12/23/2025 1 1 [facility] Reason for referral (narrative) Diagnostic Procedure Only (Urgent) - Closed Note Date & Type Note Facility Reason for referral (narrati ve) Specialty Diagnoses / Procedures Referred By Contac t Referred To Contact XR IMAGING Diagnoses Rib pain Procedures XR RIBS/CHEST 3V AP RIB/OBLS/CXR LEFT RADEX RIBS UNI W/POSTEROANT CH MINIMUM 3 VIEWS Jaymie Rees APRN.SUPER[employer]OR [employer] [address] [place] [address] [place] [address] Referral ID Status Reason Start Date Expiration Date V isits Requested Visits Authorized [id number] Closed Auto-Generate d Referral 11/23/2024 12/23/2025 1 1 [facility] Reason for visit Narrative Diagnostic Procedure Only (Urgent) - Closed Note Date & Type Note Facility Reason for visit Narrative Specialty Diagnoses / Procedures Referred By Contac t Referred To Contact XR IMAGING Diagnoses Rib pain Procedures XR RIBS/CHEST 3V AP RIB/OBLS/CXR LEFT RADEX RIBS UNI W/POSTEROANT CH MINIMUM 3 VIEWS Jaymie Rees APRN.SUPERVISOR [employer] [address] [place] [address] [place] [address] Referral ID Status Reason Start Date Expiration Date V isits Requested Visits Authorized [id number] Closed Auto-Generate d Referral 11/23/2024 12/23/2025 1 1 [facility] Chief Complaint and Reason for Visit Chief Complaint ABDOMINAL PAIN Advance Directives No Advanced Directives Records Found Advance Directive Response Recorded Date/ Time Living Will Yes August 18 10:58am Power of Tourist Adviser Yes August 18 022 10:58am Name of Medical Power of Tourist Adviser MENG- August 18, 2022 10:58am Summary Purpose Family History No Family History Records FoundNo Family History Records Found Additional Source Comments Goals (unrecognized section and content) Goals may be documented in a n alternate section (unrecognized sect ion and content) No Status Records FoundNo Status Records Found INFORMATION SOURCE (unrecogn ized section and content) DATE CREATED AUTHOR 11/17/2022 [facility] DATE CREATED AUTHOR AUTHOR'S ORGANTORSTEN ATION 11/28/2024 [facility] Source Comments (unrecognize d section and content) In the event this informatio n is protected by the Federal Confidentiality of Alcohol and Drug Abuse Patient Records regulations: The Federal rules restrict any use of the information to criminally investigate or prosecute any alcohol or drug abuse patient.[facility] event this information is protected by the Federal Confidentiality of Alcohol and Drug Abuse Patient Records regulations: The Federal rules restrict any use of the information to criminally investigate or prosecute any alcohol or drug abuse patient.[facility] Reason for Visit (unrecogniz ed section and content) Reason Comments Fall Fell from back of tr uck and landed on L side x4 days Care Teams (unrecognized sec tion and content) Engraving Supervisor Relationship Specialty Start Date End Date Dung Tyler DO [address] [place] [address] PCP - General Family Medicine 11/23/24 Engraving Supervisor Relationship Specialty Start Date End Date Dung Tyler DO [address] [place] [address] PCP - General Family Medicine 11/23/24 FOR [...] BE BASED ON THE PRIMARY CLINICAL RECORDS. [facility] [employer] [facility]. provides no warranty or guarantee of the accuracy or completeness of information in this document.
--- NOTE | 2025-10-20 08:16 | EDS_ITS ---
HPI History of Present Illness Chief Complaint: Other, Pain/Inj Narrative Narrative: Patient was seen and examined after presenting to ED for left flank pain and lower abdominal pain as well as constipation states he is being treated for sciatica. [facility] Medical History Back pain Home Medications ?Medication ?Instructions ?Recorded ?Last Taken ?Type gabapentin 300 mg capsule 300 mg PO TID #30 caps 06/27 Unknown Rx oxycodone-acetaminophen 5 mg-325 1 tab PO Q6H PRN PRN pain 5 days 06/27/21 Unknown Rx mg tablet #20 TABLETS ketorolac 10 mg tablet 10 mg PO Q8H 3 days #9 tabs 10/17/25 Unknown Rx lidocaine 5 % topical patch 1 patch topical DAILY #15 ea 10/17/25 Unknown Rx (DermacinRx Lidocan) bisacodyl 5 mg tablet,delayed 5 mg PO QHS 2 days #4 ta bs 10/20/25 Unknown Rx release (Dulcolax (bisacodyl)) ondansetron 4 mg disintegrating 4 mg PO Q8H PRN PRN Na usea #30 tabs 10/20/25 Unknown Rx tablet oxycodone-acetaminophen 5 mg-325 1 tab PO Q6H PRN pain 3 days #12 10/20/25 Unknown Rx mg tablet (Percocet) tabs polyethylene glycol 3350 17 17 g PO DAILY #238 grams 1 12/21/24 Unknown Rx gram/dose oral powder (Miralax) tamsulosin 0.4 mg capsule 0.4 mg PO DAILY #7 caps 05/09 Unknown Rx Allergy/AdvReac Type Severity Reaction Status Date / Time No Known Allergies Allergy Verified 10/20/25 05:48 Surgical History History of hernia repair Social History Smoking Status: Never smoker alcohol intake: never ROS ROS ED ROS Narrative Pertinent Positives: Left flank pain lower abdominal pain constipation Pertinent Negatives: Fevers chills chest pain pressure shortness of breath worsening numbness tingling urinary retention loss of bowel or bladder control or saddle anesthesia or unexplained weight loss The remainder of review of systems negative unless otherwise stated in the HPI above. Systems reviewed including constitutional, psychiatric, cardiovascular, respiratory, integument, HENT, gastrointestinal. EXAM Physical Exam Narrative Exam Narrative: Afebrile hemodynamically stable does not appear toxic or in distress his abdomen is soft but notably tender in the left lower quadrant no crepitus over overall lying cellulitic changes or hernias or necrotizing process or hemorrhagic bullae or vesicular lesions he does have some left-sided CVA tenderness as well intact and equal MSPs in his extremities. Const Vital Signs: 10/20/25 05:45 10/20/25 05:47 10/20/25 07:57 Temperature 97 F L Temperature Source Oral Pulse Rate 103 H 83 Respiratory Rate 18 16 Respiratory Pattern Normal Blood Pressure 174/99 H 152/82 H Blood Pressure Mean 124 105 Pulse Ox 97 100 Oxygen Delivery Method Room Air MDM MDM MDM Narrative Medical decision making narrative: Nursing notes, triage notes, available previous documentation, and vital signs were reviewed. Any discrepancies noted were addressed. Differential Diagnoses: Nephrolithiasis diverticular disease constipation to consider possibility of a mass lower suspicion for aortic etiology conus medullaris or cauda equina syndrome or spinal epidural abscess Interventions: Zofran morphine Toradol Fluids Given: 1 L normal saline Labs Reviewed: Slight leukocytosis of 13 likely reactive hemoglobin is 15.1 no electrolyte abnormality or renal insufficiency or transaminitis urine was without evidence of infection but does show 150 blood Imaging Reviewed: Personally reviewed and interpreted by me: CT of the abdomen and pelvis she can see a 9 mm stone at that left proximal ureter or UPJ with hydronephrosis. In addition to that he has a fairly moderate stool burden demonstrating constipation Previous Documentation Reviewed: None available or applicable at this time. ED Course: Patient presenting with symptoms as described above found to be constipated but also have multiple left-sided kidney stones but mostly 1 in the left UPJ or proximal ureter it is 9 mm in size I did speak with the on-call urologist Dr Silva who stated that the patient could see him in the outpatient setting on Wednesday or Wednesday which is in a couple days. Patient was given very strict return precautions follow-up recommendations as well as prescriptions for analgesia as well as the constipation he is stable for discharge home. This note was made utilizing voice recognition software. All attempts were made to correct spelling or other errors prior to note completion. However, due to the fast-paced nature of emergency medicine, some errors may still be present. Lab Data Labs: Laboratory Results - last 24 hr 10/20/25 10/20/25 05:55 06:00 WBC 13.0 H RBC 5.37 Hgb 15.1 Hct 47.2 MCV 87.9 MCH 28.1 MCHC 32.0 RDW Std Deviation 44.1 H RDW Coeff of Stuart 13.9 Plt Count 299 MPV 9.9 Immature Gran % (Auto) 0.800 Neut % (Auto) 65.6 Lymph % (Auto) 24.1 Geary % (Auto) 7.6 Eos % (Auto) 1.5 Baso % (Auto) 0.4 Absolute Neuts (auto) 8.5 H Absolute Lymphs (auto) 3.13 Nucleated RBC % 0 Sodium 138 Potassium 3.5 Chloride 101 Carbon Dioxide 25.7 Anion Gap 11 BUN 29 H Creatinine 1.18 Estim Creat Clear Calc 59.79 Est GFR (MDRD) Non-Af 66 BUN/Creatinine Ratio 24.7 H Glucose 129 H Calcium 9.1 Total Bilirubin 0.28 AST 15 ALT 21 Alkaline Phosphatase 136 H Total Protein 6.6 Albumin 3.7 Globulin 2.9 Albumin/Globulin Ratio 1.3 Urine Color Yellow Urine Clarity Clear Urine pH 6.0 Ur Specific Morley 1.020 Urine Protein 30 H Urine Glucose (UA) Normal Urine Ketones Negative Urine Occult Blood 150 H Urine Nitrite Negative Urine Bilirubin Negative Urine Urobilinogen Normal Ur Leukocyte Esterase Negative Urine RBC 10-25 SEEN Urine WBC 0-5 SEEN Ur Squamous Epith Cells 0 SEEN Urine Bacteria 0 SEEN Urine Mucus 0 SEEN Radiography Diagnostic Testing: Clinical Impression(s) from Imaging Studies Abdomen/Pelvis CT 10/20/25 05:48 IMPRESSION: An 9 mm stone at the left ureteropelvic junction causing moderate left hydronephrosis. A 3 mm stone at the midpole of the left kidney. A 4 mm stone at the upper pole of the left kidney. Large hiatal hernia. Reading Location: [facility] Discharge Plan Triage Chief Complaint: Other, Pain/Inj ED Provider: Mesfin Cox Dx/Rx/DC Orders Clinical Impression: Left nephrolithiasis, Left flank pain, Renal colic on left side, Constipation Instructions: ED Kidney Stone with Pain Prescriptions: New oxycodone-acetaminophen [Percocet] 5-325 mg tablet 1 tab PO Q6H PRN (Reason: pain) 3 Days Qty: 12 0RF tamsulosin 0.4 mg capsule 0.4 mg PO DAILY Qty: 7 0RF ondansetron 4 mg tablet,disintegrating 4 mg PO Q8H PRN PRN (Reason: Nausea) Qty: 30 0RF bisacodyl [Dulcolax (bisacodyl)] 5 mg tablet,delayed release (DR/EC) 5 mg PO QHS 2 Days Qty: 4 0RF polyethylene glycol 3350 [Miralax] 17 gram/dose powder 17 g PO DAILY Qty: 238 0RF No Action oxycodone-acetaminophen [oxycodone-acetaminophen] 1 TABLET tablet 1 tab PO Q6H PRN PRN (Reason: pain) 5 Days Qty: 20 0RF gabapentin 300 mg capsule 300 mg PO TID Qty: 30 0RF ketorolac 10 mg tablet 10 mg PO Q8H 3 Days Qty: 9 0RF lidocaine [DermacinRx Lidocan] 5 % adhesive patch,medicated 1 patch topical DAILY Qty: 15 0RF Rx Instructions: leave on most painful area for up to 12 hrs Primary Care Provider: Murphy Tyler Referrals: William Silva MD [Med Staff - Active Staff, Urology] - 2 Days Murphy Tyler DO [Primary Care Provider, Family Practice] Activity Restrictions/Additional Instructions: Be sure to follow-up with urology please return if you are developing fevers or worsening symptoms. Additionally I am providing you with a bowel regimen I am prescribing you some stool softeners however I do not want you to take it as it is prescribed in the prescription I want you to take it as listed in the following instructions Morning of MiraLAX Cleanout When you wake up: - Begin a liquid diet. (See list below for suggestions.) - Take 2 Dulcolax (bisacodyl) tablets. (DO NOT CHEW.) - Begin MiraLAX on a daily basis per instructions 1 hour after waking up: - Mix the entire 238-gram bottle of MiraLAX with 64 ounces of a sports drink. - Drink all of the mixture over the next few hours until gone. (Suggestion: An 8-ounce glass every 15-30 minutes equals 2-4 hours.) - It is very important to drink plenty of water and other liquids in order to avoid dehydration and to flush the bowel. (Although alcohol is a liquid, it can make you dehydrated. You should NOT drink alcohol while doing the cleanout.) - NOTE: Please stay home once you have started your cleanout. Also, the use of moist towelettes or wipes may help to minimize discomfort during the cleanout. A nonprescription 1% hydrocortisone cream may also be soothing when applied to the rectal area after each bowel movement. - It is common during the cleanout to experience some nausea, bloating, and/or abdominal distention. If you chilled the mixture prior to drinking it, you could experience chills from consuming so much cold liquid in a short time period. If you develop nausea or vomiting, slow down the rate at which you drink the solution. Please attempt to drink all of the laxative solution even if it takes you longer. Once stooling slows down, you may resume eating solid food. Liquid Diet - Juices - Coffee and Tea - Powdered Drinks - Water/Vitamin Water - Diet/Regular Sodas - Sports Drinks - Popsicles - Jell-O - Broths or Bouillon - Ensure or Boost Print Language: Swedish Disposition Disposition: Home, Self Care
--- NOTE | 2025-10-20 11:26 | HP.PCM.HOS_ITS ---
HPI - General General Date of Admission: 10/20/25 Date of Service: 10/20/25 HPI Narrative HILDA PASTOR, is a 70 M with a PMH as outlined who was admitted via the ED on 10/20/2025 with a complaint of complaints of sciatica. HE was admitted with a complaint of left lower extremity pain. The pain radiated from his left buttock down the back of his left leg to his left foot. Pain was very severe and debilitating and he could not even carry out his activities of daily living. He said it was exacerbated by him sitting down. He had had a history of sciatica in the past and states he had a pain shot several years ago which helped manage the pain. He denied any history of trauma, any weakness in his lower extremity or any other symptoms. Review of systems otherwise negative. Vitals in the ED where temperature of 98.2 Fahrenheit with blood pressure 148/71 respiratory rate of 18. He was saturating at 97% on room air. CBC showed hemoglobin of 15.1 WBC of 13 and platelets of 299. Chemistry showed sodium of 138 with potassium of 3.5 and creatinine of 1.18. Bicarb was 25.7. Urinalysis showed no evidence of UTI. CT abdomen and pelvis showed a 9 mm stone at the left ureteropelvic junction causing moderate left sided hydronephrosis and a 3 mm stone at the mid pole of the left kidney and a 4 mm stone at the pole of the left kidney with a large hiatal hernia. Patient was initially to be discharged home to follow-up with urology on outpatient basis. However his pain was very severe and could not even ambulate so he was admitted to be managed for acute debility due to sciatica of the LLE. [facility] Medical History (Updated 10/20/25 @ 13:51 by Elisabeth Atkinson) Kidney stones GERD (gastroesophageal reflux disease) Back pain Home Medications ?Medication ?Instructions ?Recorded ?Last Taken ?Type gabapentin 300 mg capsule 300 mg PO TID #30 caps 06/27 Unknown Rx oxycodone-acetaminophen 5 mg-325 1 tab PO Q6H PRN PRN pain 5 days 06/27/21 Unknown Rx mg tablet #20 TABLETS ketorolac 10 mg tablet 10 mg PO Q8H 3 days #9 tabs 10/17/25 Unknown Rx lidocaine 5 % topical patch 1 patch topical DAILY #15 ea 10/17/25 Unknown Rx (DermacinRx Lidocan) bisacodyl 5 mg tablet,delayed 5 mg PO QHS 2 days #4 ta bs 10/20/25 Unknown Rx release (Dulcolax (bisacodyl)) ondansetron 4 mg disintegrating 4 mg PO Q8H PRN PRN Na usea #30 tabs 10/20/25 Unknown Rx tablet oxycodone-acetaminophen 5 mg-325 1 tab PO Q6H PRN pain 3 days #12 10/20/25 Unknown Rx mg tablet (Percocet) tabs polyethylene glycol 3350 17 17 g PO DAILY #238 grams 1 12/21/24 Unknown Rx gram/dose oral powder (Miralax) tamsulosin 0.4 mg capsule 0.4 mg PO DAILY #7 caps 05/09 Unknown Rx Allergy/AdvReac Type Severity Reaction Status Date / Time No Known Allergies Allergy Verified 10/20/25 05:48 Surgical History History of hernia repair Social History Smoking Status: Never smoker alcohol intake: never ROS Constitutional Constitutional: Reports malaise and weakness; Denies anorexia, chills, fatigue or fever(s) Eyes Eyes: Denies change in vision ENT HEENT: Denies dysphagia, headache(s) or nasal discharge Cardiovascular Cardiovascular: Denies edema, lightheadedness, orthopnea, palpitations, rapid heart rate or syncope Respiratory/Chest Respiratory/Chest: Denies cough, dyspnea or shortness of breath at rest Gastrointestinal Gastrointestinal: Denies abdominal pain, constipation, diarrhea, nausea or vomiting Genitourinary Genitourinary: Denies dysuria Musculoskeletal Musculoskeletal: Reports back pain and myalgias; Denies joint pain, joint stiffness, joint swelling or neck pain Neurologic Neurologic: Reports abnormal gait, focal weakness and numbness; Denies confusion, disequilibrium, dizziness, headache(s), seizure-like activity, seizures or syncope Psychiatric Psychiatric: Denies anxiety or depression Vital Signs Vital Signs Vital Signs: 10/20/25 05:45 10/20/25 05:47 10/20/25 07:57 Temperature 97 F L Temperature Source Oral Pulse Rate 103 H 83 Respiratory Rate 18 16 Respiratory Pattern Normal Blood Pressure 174/99 H 152/82 H Blood Pressure Mean 124 105 Pulse Ox 97 100 Oxygen Delivery Method Room Air 10/20/25 11:18 Temperature Temperature Source Pulse Rate 89 Respiratory Rate 16 Respiratory Pattern Blood Pressure 166/91 H Blood Pressure Mean 116 Pulse Ox 99 Oxygen Delivery Method Room Air Weight Weight: 162 lb 4.8 oz Body Mass Index (BMI) 22.0 Physical Exam Const alert and oriented x3 Constitutional Narrative: in moderate distress due to pain General Appearance: cooperative HEENT normocephalic, head/scalp atraumatic, hearing grossly normal bilaterally, moist oral mucous membranes and oropharynx normal Mouth: oral and palatal mucosa normal Eyes EOMs intact bilaterally Neck supple Resp normal respiratory effort, no use of accessory muscles and clear to auscultation bilaterally Cardio regular rate, regular rhythm, S1 normal heart sound, S2 normal heart sound and no murmurs GI normal to inspection, nondistended, normoactive bowel sounds, soft to palpation and non-tender Extremity normal to inspection and no clubbing, cyanosis or edema Neuro oriented x3 Neuro Narrative: has some mild weakness in LLE, has pain with straight leg raising test of LLE Sensorium / Orientation: awake and alert Psych affect normal Results Lab / Micro Data 10/20/25 05:55 10/20/25 05:55 Labs: Laboratory Results - last 24 hr 10/20/25 05:55: WBC 13.0 H, RBC 5.37, Hgb 15.1, Hct 47.2, MCV 87.9, MCH 28.1, MCHC 32.0, RDW Std Deviation 44.1 H, RDW Coeff of Stuart 13.9, Plt Count 299, MPV 9.9, Immature Gran % (Auto) 0.800, Neut % (Auto) 65.6, Lymph % (Auto) 24.1, [place] % (Auto) 7.6, Eos % (Auto) 1.5, Baso % (Auto) 0.4, Absolute Neuts (auto) 8.5 H, Absolute Lymphs (auto) 3.13, Nucleated RBC % 0, Sodium 138, Potassium 3.5, Chloride 101, Carbon Dioxide 25.7, Anion Gap 11, BUN 29 H, Creatinine 1.18, Estim Creat Clear Calc 59.79, Est GFR (MDRD) Non-Af 66, BUN/Creatinine Ratio 24.7 H, Glucose 129 H, Calcium 9.1, Total Bilirubin 0.28, AST 15, ALT 21, A lkaline Phosphatase 136 H, Total Protein 6.6, Albumin 3.7, Globulin 2.9, Albumin/Globulin Ratio 1.3 10/20/25 06:00: Urine Color Yellow, Urine Clarity Clear, Urine pH 6.0, Ur Specific Blak[place] 1.020, Urine Protein 30 H, Urine Glucose (UA) Normal, Urine Ketones Negative, Urine Occult Blood 150 H, Urine Nitrite Negative, Urine Bilirubin Negative, Urine Urobilinogen Normal, Ur Leukocyte Esterase Negative, Urine RBC 10-25 SEEN, Urine WBC 0-5 SEEN, Ur Squamous Epith Cells 0 SEEN, Urine Bacteria 0 SEEN, Urine Mucus 0 SEEN Imaging Radiology Impression Abdomen/Pelvis CT 10/20/25 05:48 IMPRESSION: An 9 mm stone at the left ureteropelvic junction causing moderate left hydronephrosis. A 3 mm stone at the midpole of the left kidney. A 4 mm stone at the upper pole of the left kidney. Large hiatal hernia. Reading Location: [facility] Assessment & Plan Assessment/Plan (1) Left sided sciatica: (2) Intractable neuropathic pain of left lower extremity: PLAN: Plan #Debility and weakness due to LLE sciatica * admitted with a complaint of left lower extremity pain and difficulty with ambulation * initial CT abdomen and pelvis showed a 9mm stone at the left ureteropelvic junction causing moderate left hydronephrosis and a 3mm stone at the midple of the left kidney, and a 4mm stone at the upper pole of hte left kidney. * he does not have any irnary or fecal incontinence * MRI of the lumbar spine done and read pending * admit to med surg * PT/OT consult. PO tylenol, IV toradol, dilaudid prn for pain * On gabapentin. Will also order flexeril and IV solumedrol to help with severe pain. * may need pain management consult if pain odesnt improve with conservative management * fall precautions * #Kidney stone with hydronephrosis * CT abdomen and pelvis showed a 9mm stone at the left ureteropelvic junction causing moderate left hydronephrosis and a 3 mm stone at the mid pole of the left kidney and a 4 mm evaluable pole of the left kidney * follow up with urology on outpatient basis. * Urinalysis showed no evidence of UTI. * #BPH: on flexeril DVT prophylaxis: lovenox CODE STATUS: Full code * Patient counseled extensively about different types of CODE STATUS including full code, DNR CCA and DNR CCA. Patient elects to be full code. * Total [id number] time 16 minutes. Charges/Coding Visit Charges Inpatient E&M: 26771 Init Hosp L2 Procedures Hospitalists Procedures: 09249 Advncd Care Plan 30 Min
--- NOTE | 2025-10-20 11:34 | MRI_ITS ---
PROCEDURE: SPINE LUMBAR (ROUTINE) 10/20/2025 REASON FOR EXAM: PAIN, LLE S1 SCIATICA TECHNIQUE: Procedure Code: MRISPL Modality: MR Procedure: SPINE LUMBAR (ROUTINE) FINDINGS: Normal lumbar alignment and vertebral body height. Normal conus. No subluxation. No marrow disturbance. L1-L2, L2-L3, L3-L4 and L4-L5 exhibit no spinal stenosis. There is mild facet degeneration at L3-4 and L4-5. At L5-S1 there is a left paracentral disc extrusion with left S1 nerve root compression MRI/Spine Lumbar (Routine) IMPRESSION: Left paracentral extrusion at L5-S1 with left S1 nerve compression [facility]
--- NOTE | 2025-10-20 11:39 | CM.ED ---
Social Work Date of referral: 10/20/25 Reason for referral: Advanced Care Directives (ACD's) not on file. Referred by: Social Work Identification. Patient provided consent to social work visit. Row Boss Hoeing asked patient to bring in a copy of the ACD's which patient was agreeable to. Desire Heredia, CAROUSEL OPERATOR, [employer]RSE MANAGER
--- OUTSIDE RECORDS SUMMARY | 2025-10-20 12:30 | XMS RPT_ITS | CCD ---
Author Organization [facility] CliniSyid Care Team Providers Care Director Of Religious Activities Name Role Phone Cruz Hinson Attending Unavailable [...] Test Name Value Interpretation Reference Range Facility [facility] 11-23-2024 CN Office Visit (UCWSTR ) HILDA MCRAE ([id number]) 1955 M Date Time Provider Department 11/23/24 9:15 AM JAYMIE REES [facility] During your visit today, we recorded the following information about you: Temperature Pulse Respiration Blood pressure 98.3 degrees 90/minute 18/minute 129/76 Weight 74.1 kg Jaymie Rees, AMADOR.DATA PROCESSING SPECIALIST 11/23/2024 10:00 AM Signed Subjective HPI Nontoxic-appearing [...] of care. This note was generated using [employer] software. It may contain errors in wording, punctuation, or spelling. Jaymie Rees APRN.DATA PROCESSING SPECIALIST Allergies As of Date: 11/23/2024 (No Known Allergies) Date Reviewed: 11/23/2024 Reviewed by: Jaymie Rees APRN.DATA PROCESSING SPECIALIST - Fully Assessed Reason for Visit: Fall [218] Cmt: Fell from back of truck and landed on L side x4 days Primary Visit Diagnosis:Rib pain [R07.81] Order(s):XR RIBS/CHEST 3V AP RIB/OBLS/CXR LEFT [[id number]] Order #: [id number] FUTURE Prescriptions as of 11/23/2024 - hydrocodone bit/acetaminophen(GERMAN ANDREY 5 MG-500 MG TAB) Take 1-2 tablet's) every six(6) hours as needed for pain. - multivitamins(ONE-A-D AY ESSENTIAL TAB) Take one(1) tablet daily. (more content not included)... Normal [facility] XR RIB/CHST 3V AP RIB/OBL/CH ST Miquel [...] spurring patellofemoral joint. IMPRESSION: No acute finding Supervisor Production Managing: PSC Transcribe Date/Time: Nov 23 2024 9:49A Dictated by : DUNG CARTWRIGHT MD This examination was interpreted and the report reviewed and electronically signed by: DUNG CARTWRIGHT MD on Nov 23 2024 9:50AM EST [id number] Normal [facility] XR Ribs - left Views and Nichole st PAon 11-23-2024 IMPRESSION: No acute finding Supervisor Production Managing: PSCB Transcribe Date/Time: Nov 23 2024 9:49A [...] patellofemoral joint. IMPRESSION IMPRESSION: No acute finding Supervisor Production Managing: MONE Transcribe Date/Time: Nov 23 2024 9:49A Dictated by : DUNG CARTWRIGHT MD This examination was interpreted and the report reviewed and electronically signed by: DUNG CARTWRIGHT MD on Nov 23 2024 9:50AM EST [facility] Radiology Study observation (narrative) [facility] XR Ribs - left Views and Nichole st PAOrdered By: Ccf Provider on 11-23-2024 [facility] 12 Lead EKGon 08-18-2022 12 Lead EKG [facility] Cardiovascular Services [address] [place] [address] 12 Lead EKG 08/18/22 1224 MR#: [id number] Acct: [id number] Name: HILDA MCRAE Rep #: [id number] : 1955 67 From: Blas Rivera MD [...] ECG Confirmed by BLAS RIVERA MD ([id number]), publications editor REGINA MACDONALD ([id number]) on 08/20/2022 7:59:57 AM Referred By: Confirmed By:BLAS RIVERA MD 08/20/22 0759 Date Blas Rivera MD CC: Dr. Raji Tristan DO; Dr. Dung Tyler DO Signed Normal [facility] 12 Lead EKG [facility] Cardiovascular Services [address] [place] [address] 12 Lead EKG 08/18/22 1112 MR#: [id number] Acct: [id number] Name: HILDA MCRAE Rep #: [id number] : 1955 67 From: Blas Rivera MD [...] Abnormal ECG Confirmed by BLAS RIVERA MD ([id number]), publications editor REGINA MACDONALD ([id number]) on 08/20/2022 7:59:16 AM Referred By: ANGEL Confirmed By:BLAS RIVERA MD 08/20/22 0759 Date Blas Rivera MD CC: Dr. Raji Tristan DO; Dr. Dung Tyler DO Signed Normal [facility] Abdomen/Pelvis W IV Cont ONL Yon 08-18-2022 Abdomen/Pelvis W IV Cont ONLY [facility] Imaging Services [address] [facility] [place] [address] Abdomen/Pelvis W IV Cont ONLY MR#: [id number] Acct: [id number] Name: HILDA MCRAE Rep #: [id number] : 1955 M 67 From: Ryan aguirre MD PCP: Dr. Dung Tyler DO Status: REG ER Study: Abdomen/Pelvis W IV Cont ONLY Date of Exam: Exam# [id number] Ordering Dr: Ceredo,Raji DO STUDY: CT ABDOMEN AND PELVIS WITH [...] Raji Tristan, DO; Dr. Dung Tyler, DO Supervisor Production Managing: Signed Normal [facility] Absolute lymphocyte counton 08-18-2022 Lymphocytes Auto (Unsp spec) [#/Vol] 1.42 10*3/uL 0.83-4.51 [facility] Work Phone: Basic Metabolic Profile (BMP )on 08-18-2022 BUN/CRE 10.6 RATIO Normal 10-20 [facility] Comment on above: Performed By: #### L 100.0100, L500.2500 ####[facility] [address] [place], [address] CA,Total 9.7 mg/dL Normal 8.5-10.1 [facility] Comment on above: Performed By: #### L 100.0100, L500.2500 ####[facility] [address] [place], [address] Chloride [Moles/Vol] 102 mmol/L Normal 98-107 [facility] Comment on above: Performed By: #### L 100.0100, L500.2500 ####[facility] [address] [place], [address] CO2 [Moles/Vol] 26.0 mmol/L Normal 21.0-32.0 [facility] Comment on above: Performed By: #### L 100.0100, L500.2500 ####[facility] [address] [place], [address] Creatinine [Mass/Vol] 1.23 mg/dL Normal 0.70-1.30 [facility] Comment on above: Result Comment: The validity of the calculated GFR GFRAA in patients over 70 years has not been determined. Clinical correlation is essential. Performed By: #### L 100.0100, L500.2500 ####[facility] [address] [place], [address] ECRCL 55.32 ml/min Normal [facility] Comment on above: Performed By: #### L 100.0100, L500.2500 ####[facility] [address] [place], [address] EST GFR - AA 75 mL/min Normal >60 [facility] Comment on above: Result Comment: Afri can Algerian GFR Calc Performed By: #### L 100.0100, L500.2500 ####[facility] [address] [place], [address] GAP 8 Normal 5-15 [facility] Comment on above: Performed By: #### L 100.0100, L500.2500 ####[facility] [address] [place], [address] GFR/1.73 sq M.predicted among non-blacks MDRD (S/P/Bld) [Vol rate/Area] 62 mL/min/{1.73_m2} Normal >60 [facility] Comment on above: Result Comment: Non- GFR Calc Performed By: #### L 100.0100, L500.2500 ####[facility] [address] [place], [address] Glucose [Mass/Vol] 131 mg/dL High 74-106 [facility] Comment on above: Result Comment: Fast ing Glucose result greater than or equal to 126 mg/dL suggests DIABETES MELLITUS per A.D.A. criteria. Performed By: #### L 100.0100, L500.2500 ####[facility] [address] [place], [address] Potassium [Moles/Vol] 4.1 mmol/L Normal 3.5-5.1 [facility] Comment on above: Performed By: #### L 100.0100, L500.2500 ####[facility] [address] [place], [address] Sodium [Moles/Vol] 136 mmol/L Normal 136-145 [facility] Comment on above: Performed By: #### L 100.0100, L500.2500 ####[facility] [address] [place], [address] Urea nitrogen [Mass/Vol] 13 mg/dL Normal 7-18 [facility] Comment on above: Performed By: #### L 100.0100, L500.2500 ####[facility] [address] [place], [address] Basophil percentageon 2021 Basophil percentage 0 SEEN /hpf 0-5 [facility] Work Phone: Basophils/100 WBC (Bld) 0.2 % 0-1 [facility] Work Phone: Bilirubin [Mass/Vol] 0.70 mg/dL 0.20-1.00 [facility] Work Phone: Comment on above: For patients on eltr ombopag therapy, use of Dimension [place] TBIL is not recommended. Chloride [Moles/Vol] 102 mmol/L 98-107 [facility] Work Phone: Eosinophils/100 WBC (Bld) 0.1 % 0-5 [facility] Work Phone: Glucose [Mass/Vol] 131 mg/dL 74-106 [facility] Work Phone: Comment on above: Fasting Glucose resu lt greater than or equal to 126 mg/dL suggests DIABETES MELLITUS per A.D.A. criteria. Neutrophils (Bld) [#/Vol] 12.0 10*3/uL 2.0-7.7 [facility] Work Phone: Neutrophils/100 WBC (Bld) 80.8 % 47-70 [facility] Work Phone: Potassium [Moles/Vol] 4.1 mmol/L 3.5-5.1 [facility] Work Phone: Protein [Mass/Vol] 8.0 g/dL 6.4-8.2 [facility] Work Phone: Sodium [Moles/Vol] 136 mmol/L 136-145 [facility] Work Phone: WBC (Bld) [#/Vol] 14.9 10*3/uL 4.4-11.0 [facility] Work Phone: Bilirubin Test strip Ql (U)o n 08-18-2022 Bilirubin Ql (U) Negative Negative [facility] Work Phone: Blood erythrocytes count (nu mber/volume)on 08-18-2022 RBC (Bld) [#/Vol] 5.69 10*6/uL 4.6-6.2 [facility] Work Phone: Blood hemoglobin measurement (mass/volume)on 08-18-2022 Hemoglobin (Bld) [Mass/Vol] 16.0 g/dL 13.0-16.5 [facility] Work Phone: Blood lymphocytes/100 leukoc yteson 08-18-2022 Lymphocytes/100 WBC (Bld) 9.6 % 19-41 [facility] Work Phone: Blood monocytes/100 leukocyt eson 08-18-2022 Monocytes/100 WBC (Bld) 8.8 % 0-10 [facility] Work Phone: Blood platelet mean volumeon 08-18-2022 Platelet mean volume (Bld) [Entitic vol] 10.5 fL 6.2-12.0 [facility] Work Phone: CBC W/Diff, Automatedon Absolute Lymph 1.42 X10 3/uL Normal 0.83-4.51 [facility] Comment on above: Performed By: #### L 100.0100, L500.2500 #### [facility] [address] [place], [address] Absolute Neut 12.0 X10 3/uL High 2.0-7.7 [facility] Comment on above: Performed By: #### L 100.0100, L500.2500 #### [facility] [address] [place], [address] Basophils/100 WBC (Bld) 0.2 % Normal 0-1 [facility] Comment on above: Performed By: #### L 100.0100, L500.2500 #### [facility] [address] [place], [address] Eosinophils/100 WBC (Bld) 0.1 % Normal 0-5 [facility] Comment on above: Performed By: #### L 100.0100, L500.2500 #### [facility] [address] [place], [address] Erythrocyte distribution width (RBC) [Ratio] 13.1 % Normal 11.6-14.6 [facility] Comment on above: Performed By: #### L 100.0100, L500.2500 #### [facility] [address] [place], [address] Hematocrit (Bld) [Volume fraction] 49.0 % Normal 40-54 [facility] Comment on above: Performed By: #### L 100.0100, L500.2500 #### [facility] [address] [place], [address] Hemoglobin (Bld) [Mass/Vol] 16.0 g/dL Normal 13.0-16.5 [facility] Comment on above: Performed By: #### L 100.0100, L500.2500 #### [facility] [address] [place], [address] IG% 0.500 Normal 0.0-0.9 [facility] Comment on above: Result Comment: IG% - Immature Granulocytes (promyelocytes, myelocytes and metamyelocytes) > 1% indicates that a LEFT SHIFT is Present. Performed By: #### L 100.0100, L500.2500 #### [facility] [address] [place], [address] Lymphocytes/100 WBC (Bld) 9.6 % Low 19-41 [facility] Comment on above: Performed By: #### L 100.0100, L500.2500 #### [facility] [address] [place], [address] MCH (RBC) [Entitic mass] 28.1 pg Normal 27.0-32.0 [facility] Comment on above: Performed By: #### L 100.0100, L500.2500 #### [facility] [address] [place], [address] MCHC (RBC) [Mass/Vol] 32.7 g/dL Normal 32-36 [facility] Comment on above: Performed By: #### L 100.0100, L500.2500 #### [facility] [address] [place], [address] MCV (RBC) [Entitic vol] 86.1 fL Normal 80-94 [facility] Comment on above: Performed By: #### L 100.0100, L500.2500 #### [facility] [address] [place], [address] Monocytes/100 WBC (Bld) 8.8 % Normal 0-10 [facility] Comment on above: Performed By: #### L 100.0100, L500.2500 #### [facility] [address] [place], [address] Neutrophils/100 WBC (Bld) 80.8 % High 47-70 [facility] Comment on above: Performed By: #### L 100.0100, L500.2500 #### [facility] [address] [place], [address] Nucleated RBC (Bld) [#/Vol] 0 10*3/uL Normal 0-5 [facility] Comment on above: Performed By: #### L 100.0100, L500.2500 #### [facility] [address] [place], [address] Platelet mean volume (Bld) [Entitic vol] 10.5 fL Normal 6.2-12.0 [facility] Comment on above: Performed By: #### L 100.0100, L500.2500 #### [facility] [address] [place], [address] Platelets (Bld) [#/Vol] 258 10*3/uL Normal 150-450 [facility] Comment on above: Performed By: #### L 100.0100, L500.2500 #### [facility] [address] [place], [address] RBC (Bld) [#/Vol] 5.69 10*6/uL Normal 4.6-6.2 [facility] Comment on above: Performed By: #### L 100.0100, L500.2500 #### [facility] [address] [place], [address] RDW SD 40.7 fl Normal 35.1-43.9 [facility] Comment on above: Performed By: #### L 100.0100, L500.2500 #### [facility] [address] [place], [address] WBC (Bld) [#/Vol] 14.9 10*3/uL High 4.4-11.0 [facility] Comment on above: Performed By: #### L 100.0100, L500.2500 #### [facility] [address] [place], [address] Determination of erythrocyte mean corpuscular volume (MCV)on 08-18-2022 MCV (RBC) [Entitic vol] 86.1 fL 80-94 [facility] Work Phone: Direct bilirubinon 10-04-202 2 Bilirubin.direct [Mass/Vol] 0.19 mg/dL 0.00-0.30 [facility] Work Phone: Emergency Department Summary on 08-18-2022 Emergency Department Summary [facility] Medical Records Department [address] [place] [address] Emergency Department Summary 08/18/22 MR#: [id number] Acct: [id number] Name: HILDA MCRAE Rep #: [id number] : 1955 67 From: Raji Tristan DO [...] was doing his EKG at the time. [facility] Medical History Back pain Home Medications gabapentin [...] Skin n (more content not included)... Normal [facility] Hematocrit Auto (Bld) [Volum e fraction]on 08-18-2022 Hematocrit (Bld) [Volume fraction] 49.0 % 40-54 [facility] Work Phone: Ketones Test strip Ql (U)on 08-18-2022 Ketones Ql (U) Negative Negative [facility] Work Phone: [id number] 08-18-2022 TROPONIN-I HS 22 pg/mL Normal 3.0-78.0 [facility] Comment on above: Order Comment: 'TROP ' Serial specimen #1, #2 or #3: 2 Result Comment: Plea se Note: New Test Units and Gender Specific Reference Ranges. For more information see Policy Stat Procedure [place] High Sensitivity Troponin (TNIH) and attachments. Performed By: #### L 501.4020 #### [facility] [address] [place], [place], [address] TROPONIN-I HS 26 pg/mL Normal 3.0-78.0 [facility] Comment on above: Order Comment: 'TROP ' Serial specimen #1, #2 or #3: 1 Result Comment: Plea se Note: New Test Units and Gender Specific Reference Ranges. For more information see Policy Stat Procedure [place] High Sensitivity Troponin (TNIH) and attachments. Performed By: #### L 501.4020, L501.2450 #### [facility] [address] [place], [address] Laboratory - Chemistry and C hemistry - challengeon 08-18-2022 ALP [Catalytic activity/Vol] 146 U/L 45-117 [facility] Work Phone: ALT [Catalytic activity/Vol] 18 U/L 16-61 [facility] Work Phone: CO2 [Moles/Vol] 26.0 mmol/L 21.0-32.0 [facility] Work Phone: Globulin (S) [Mass/Vol] 4.4 g/dL 2.2-4.2 [facility] Work Phone: Lipase [Catalytic activity/Vol] 90 U/L 73-393 [facility] Work Phone: Urea nitrogen/Creatinine [Mass ratio] 10.6 mg/mg 10-20 [facility] Work Phone: Laboratory - Hematology and Cell countson 08-18-2022 Erythrocyte distribution width (RBC) [Entitic vol] 40.7 fL 35.1-43.9 [facility] Work Phone: Erythrocyte distribution width (RBC) [Ratio] 13.1 % 11.6-14.6 [facility] Work Phone: Immature granulocytes/100 WBC (Bld) 0.500 % 0.0-0.9 [facility] Work Phone: Comment on above: IG% - Immature Granu locytes (promyelocytes, myelocytes and metamyelocytes) > 1% indicates that a LEFT SHIFT is Present. MCH (RBC) [Entitic mass] 28.1 pg 27.0-32.0 [facility] Work Phone: Nucleated RBC/100 WBC (Bld) [Ratio] 0 % 0-5 [facility] Work Phone: Lipaseon 08-18-2022 Lipase [Catalytic activity/Vol] 90 U/L Normal 73-393 [facility] Comment on above: Order Comment: 'TROP ' Serial specimen #1, #2 or #3: 1 Performed By: #### L 501.4020, L501.2450 #### [facility] [address] [place], [address] Liver Profileon 08-18-2022 Albumin [Mass/Vol] 3.6 g/dL Normal 3.2-5.0 [facility] Comment on above: Performed By: #### L 500.3400 #### [facility] [address] [place], [address] ALK P 146 U/L High 45-117 [facility] Comment on above: Performed By: #### L 500.3400 #### [facility] [address] [place], [address] ALT [Catalytic activity/Vol] 18 U/L Normal 16-61 [facility] Comment on above: Performed By: #### L 500.3400 #### [facility] [address] [place], [address] AST [Catalytic activity/Vol] 17 U/L Normal 15-37 [facility] Comment on above: Performed By: #### L 500.3400 #### [facility] [address] [place], [address] Bilirubin [Mass/Vol] 0.70 mg/dL Normal 0.20-1.00 [facility] Comment on above: Result Comment: For patients on eltrombopag therapy, use of Dimension [place] TBIL is not recommended. Performed By: #### L 500.3400 #### [facility] [address] [place], [address] Bilirubin.direct [Mass/Vol] 0.19 mg/dL Normal 0.00-0.30 [facility] Comment on above: Performed By: #### L 500.3400 #### [facility] [address] [place], [address] Globulin (S) [Mass/Vol] 4.4 g/dL High 2.2-4.2 [facility] Comment on above: Performed By: #### L 500.3400 #### [facility] [address] [place], [address] T PROT 8.0 g/dL Normal 6.4-8.2 [facility] Comment on above: Performed By: #### L 500.3400 #### [facility] [address] [place], [place], [address] MCHC Auto (RBC) [Mass/Vol]on 08-18-2022 MCHC (RBC) [Mass/Vol] 32.7 g/dL 32-36 [facility] Work Phone: Mucus LM Ql (Urine sed)on Mucus Ql (Urine sed) 0 SEEN /hpf [facility] Work Phone: Nitrite Test strip Ql (U)on 08-18-2022 Nitrite Ql (U) Negative Negative [facility] Work Phone: No Panel Informationon 08-18 Troponin I High Sensitivity 22 pg/mL 3.0-78.0 [facility] Work Phone: Comment on above: Please Note: New Vannessa t Units and Gender Specific Reference Ranges. For more information see Policy Stat Procedure [place] High Sensitivity Troponin (TNIH) and attachments. Estimated Creatinine Clearance Calc 55.32 ml/min [facility] Work Phone: Estimated GFR (MDRD) Amer 75 mL/min >60 [facility] Work Phone: Comment on above: GFR Calc Estimated GFR (MDRD) Non-Af Amer 62 mL/min >60 [facility] Work Phone: Comment on above: Non- GFR Calc Platelets bldon 08-18-2022 Platelets (Bld) [#/Vol] 258 10*3/uL 150-450 [facility] Work Phone: Protein Test strip Ql (U)on 08-18-2022 Protein Ql (U) 15 mg/dl Negative [facility] Work Phone: Serum or plasma albumin carlton urement (mass/volume)on 08-18-2022 Albumin [Mass/Vol] 3.6 g/dL 3.2-5.0 [facility] Work Phone: Serum or plasma calcium carlton urement (mass/volume)on 08-18-2022 Calcium [Mass/Vol] 9.7 mg/dL 8.5-10.1 [facility] Work Phone: Serum or plasma creatinine m easurement (mass/volume)on 08-18-2022 Creatinine [Mass/Vol] 1.23 mg/dL 0.70-1.30 [facility] Work Phone: Comment on above: The validity of the calculated GFR & GFRAA in patients over 70 years has not been determined. Clinical correlation is essential. Serum or plasma urea nitroge n measurement (mass/volume)on 08-18-2022 Urea nitrogen [Mass/Vol] 13 mg/dL 7-18 [facility] Work Phone: Squamous epithelial cells de tection in urine sediment by light microscopyon 08-18-2022 Epithelial cells.squamous LM Ql (Urine sed) 0 SEEN /hpf 0-5 [facility] Work Phone: Thin prep Papanicolaou smear with manual screeningon 08-18-2022 Thin prep Papanicolaou smear with manual screening 17 U/L 15-37 [facility] Work Phone: Thin prep Papanicolaou smear with manual screening 8 5-15 [facility] Work Phone: Urinalysis, Completeon 08-18 RBC 0-5 SEEN Normal 0-5 [facility] Comment on above: Order Comment: COLLE CTOR TO SPECIFY Performed By: #### L 400.0001 #### [facility] [address] [place], [address] BACTERIA 0 SEEN Normal None Seen [facility] Comment on above: Order Comment: RUDY CTOR TO SPECIFY Performed By: #### L 400.0001 #### [facility] [address] [place], [address] EPI,SQUAMOUS 0 SEEN Normal 0-5 [facility] Comment on above: Order Comment: RUDY CTOR TO SPECIFY Performed By: #### L 400.0001 #### [facility] [address] [place], [address] Mucus Ql (Urine sed) 0 SEEN Normal [facility] Comment on above: Order Comment: RUDY CTOR TO SPECIFY Performed By: #### L 400.0001 #### [facility] [address] [place], [address] WBC 0 SEEN Normal 0-5 [facility] Comment on above: Order Comment: RUDY CTOR TO SPECIFY Performed By: #### L 400.0001 #### [facility] [address] [place], [address] Urine blood detectionon 10-0 RBC Ql (U) 10 /ul Negative [facility] Work Phone: RBC Ql (U) 0-5 SEEN /hpf 0-5 [facility] Work Phone: Urine clarityon 08-18-2022 Clarity (U) Clear Clear [facility] Work Phone: Urine color determinationon 08-18-2022 Color (U) Yellow Yellow [facility] Work Phone: Urine glucose detectionon Glucose Ql (U) Normal mg/dl Normal [facility] Work Phone: Urine leukocyte esterase det ection by dipstickon 08-18-2022 Leukocyte esterase Test strip Ql (U) Negative Negative [facility] Work Phone: Urine pHon 08-18-2022 pH (U) 7.0 [pH] 5.0 - 8.0 [facility] Work Phone: Urine sediment bacteria coun t by microscopy (number/high power field)on 08-18-2022 Bacteria LM.HPF (Urine sed) [#/Area] 0 /[HPF] None Seen [facility] Work Phone: Urine specific gravity measu rementon 08-18-2022 Specific gravity (U) [Rel density] 1.005 1.002-1.030 [facility] Work Phone: Urobilinogen Auto test strip Ql (U)on 08-18-2022 Urobilinogen Ql (U) Normal mg/dl Normal [facility] Work Phone: Vital Signs Date Time Vital Sign Value Performing Clinician Facility 11-23-2024 09:23-0500 Body temperature 98.29 [degF] Jaymie Rees [employer]S MANAGER.DATA PROCESSING SPECIALIST Work Phone: [facility] 11-23-2024 09:23-0500 Body weight 74.1 kg Jaymie Rees GRANTS MANAGER.DATA PROCESSING SPECIALIST Work Phone: [facility] 11-23-2024 09:23-0500 Diastolic blood pressure 76 mm[Hg] Jaymie Bermeojuan GRANTS MANAGER.DATA PROCESSING SPECIALIST Work Phone: [facility] 11-23-2024 09:23-0500 Heart rate 90 /min Jaymie Rees GRANTS MANAGER.DATA PROCESSING SPECIALIST Work Phone: [facility] 11-23-2024 09:23-0500 Respiratory rate 18 /min Jaymie Rees GRANTS MANAGER.DATA PROCESSING SPECIALIST Work Phone: [facility] 11-23-2024 09:23-0500 SaO2% (BldA) [Mass fraction] 98 % Jaymie Rees GRANTS MANAGER.DATA PROCESSING SPECIALIST Work Phone: [facility] 11-23-2024 09:23-0500 Systolic blood pressure 129 mm[Hg] Jaymie Rees GRANTS MANAGER.DATA PROCESSING SPECIALIST Work Phone: [facility] 08-18-2022 15:48-0400 Diastolic blood pressure 77 mm[Hg] [facility] Work Phone: 08-18-2022 15:48-0400 Heart rate 86 /min [facility] Work Phone: 08-18-2022 15:48-0400 Respiratory rate 24 /min [facility] Work Phone: 08-18-2022 15:48-0400 SaO2% (BldA) [Mass fraction] 98 % [facility] Work Phone: 08-18-2022 15:48-0400 Systolic blood pressure 156 mm[Hg] [facility] Work Phone: 08-18-2022 10:58-0400 Body height 182.88 cm [facility] Work Phone: 08-18-2022 10:58-0400 Body mass index (BMI) [Ratio] 20.3 kg/m2 [facility] Work Phone: 08-18-2022 10:58-0400 Body temperature 98.2 [degF] [facility] Work Phone: 08-18-2022 10:58-0400 Body weight 68.03 kg [facility] Work Phone: Encounters Encounter Date Encounter Type Care Provider Facility Start: 11-23-2024 End: 11-23-2024 Subsequent hospital visit by physician [facility] Work Phone: Radiology Comment on above: Rib pain [R07.81] Start: 11-23-2024 End: 11-23-2024 ambulatory [facility] Facility:[facility] Start: 11-23-2024 End: 11-23-2024 Office outpatient new 20 minutes Jaymie Rees APRN.CNP Work Phone: [facility] Comment on above: Rib pain (Primary Dx ) Start: 10-21-2022 ambulatory [facility] Facility:[facility] Start: 08-18-2022 End: 08-18-2022 Emergency department patient visit [facility] Facility:[facility] Start: 08-18-2022 End: 08-18-2022 Emergency department patient visit [facility]-Emergency Department Procedures Date Procedure Procedure Detail Performing Clinician Start: 11-23-2024 Radex ribs uni w/posteroant ch minimum 3 views Jaymie Rees APRN.CNP Work Phone: Start: 08-18-2022 Computed tomography of abdomen and pelvis with intravenous contrast Plan of Treatment Date Care Activity Detail Author Start: 04-30-2031 Urine microalbumin profile DTaP,Tdap,Td Vaccine (2 - Td or Tdap) [facility] Start: 2029 RSV Vaccine (1 - 1-dose 75+ series) RSV Vaccine (1 - 1-dose 75+ series) [facility] Start: 11-15-2024 Advance Directive Discussion Advance Directive Discussion [facility] Start: 07-16-2024 Covid-19 Vaccine ( season) Covid-19 Vaccine ( season) [facility] Start: 07-16-2024 Influenza vaccination Influenza Vaccine (#1) [facility] Start: 2004 Pneumococcal Vaccine: 50+ (1 of 1 - PCV) Pneumococcal Vaccine: 50+ (1 of 1 - PCV) [facility] Start: 2004 Shingrix Vaccine (1 of 2) Shingrix Vaccine (1 of 2) [facility] Start: 1999 Diabetes Screening Diabetes Screening [facility] Start: 1999 Screening for malignant neoplasm of colon [facility] Start: 1989 Lipid panel Lipid Screening [facility] Start: 1972 Anxiety Screening Anxiety Screening [facility] Start: 1972 Depression Screening Depression Screening [facility] Start: 1972 Hepatitis C screening Hepatitis C Screening [facility] Patient Education ED Abdominal P ain Unkn Cause Male... [facility] Work Phone: Patient referral [facility] Work Phone: Immunizations Immunization Date Immunization Notes Care Provider Gage silver 04-30-2021 tetanus toxoid, redu lidia diphtheria toxoid, and acellular pertussis vaccine, adsorbed [facility] Work Phone: Payers Date Payer Category Payer Medicare AETNA MEDICARE A ETNA MEDICARE PPO [id number] 2023-Present [phone] [address] [place] [address] PPO [id number] 2022 Private Health Insurance 101 [id number] 2022 Self-pay [id number] 2006 Unknown DARLINE [id number] Unknown [id number] Unknown [id number] Unknown [id number] Social History Date Type Detail Facility Start: 08-18-2022 Tobacco smoking stat [facility] Unknown if ever smoked [facility] Work Phone: Start: 1955 Sex Assigned At Male [facility] Work Phone: Start: 11-23-2024 [facility] Start: 11-23-2024 Tobacco use and exposure Smokeless tobacco non-user [facility] Start: 11-23-2024 Alcoholic beverage intake Current non-drinker of alcohol (finding) [facility] Start: 11-23-2024 History of Social function [facility] Start: 11-23-2024 Tobacco use panel [facility] Start: 1955 Sex assigned at Not on file [facility] Progress note 11-23-2024 Note Date & Type Note Facility 11-23-2024 Note HNO ID: [id number] Author: JAYMIE REES APRN.DATA PROCESSING SPECIALIST Service: ? Author Type: Nurse Practitioner Type: [...] of care. This note was generated using [employer] software. It may contain errors in wording, punctuation, or spelling. Jaymie Rees APRN.SAMUEL [facility] History of Present illness Narrative 11-23-2024 Jaymie [...] of care. This note was generated using [employer] software. It may contain errors in wording, punctuation, or spelling. Jaymie Rees APRN.DATA PROCESSING SPECIALIST documented in this encounter [facility] History of Present illness Narrative 11-23-2024 Fabiana [...] PATIENT PRESENTS WITH AN IMPLANTABLE OR ATTACHED POINTER MACHINE OPERATOR: No RADIOLOGY DEPARTMENT: General X-ray: Exam(s) Completed: Rib X-Ray: Left PERIPHERAL IV DATA: Not applicable SIGNED BY: RT Bryson(Loretta) November 23, 2024 9:40 AM documented in this encounter [facility] Progress note 11-23-2024 Note Date & Type Note Facility 11-23-2024 Note HNO ID: [id number] Author: FABIANA POST RT(R) Service: Radiology Author [...] PATIENT PRESENTS WITH AN IMPLANTABLE OR ATTACHED POINTER MACHINE OPERATOR: No RADIOLOGY DEPARTMENT: General X-ray: Exam(s) Completed: Rib X-Ray: Left PERIPHERAL IV DATA: Not applicable SIGNED BY: RT Bryson(R) November 23, 2024 9:40 AM [facility] Evaluation note Note Date & Type Note Facility Evaluation note No assessment information [facility] Work Phone: Evaluation note Note Date & Type Note Facility Evaluation note Diagnosis Rib pain- Primary Chest pain, unspecified Rib pain Chest pain, unspecified documented in this encounter [facility] Evaluation note Note Date & Type Note Facility Evaluation note Diagnosis Rib pain Chest pain, unspecified documented in this encounter [facility] Reason for referral (narrative) Diagnostic Procedure Only (Urgent) - Closed Note Date & Type Note Facility Reason for referral (narrati ve) Specialty Diagnoses / Procedures Referred By Contac t Referred To Contact XR IMAGING Diagnoses Rib pain Procedures XR RIBS/CHEST 3V AP RIB/OBLS/CXR LEFT RADEX RIBS UNI W/POSTEROANT CH MINIMUM 3 VIEWS Jaymie Rees APRN.DATA PROCESSING SPECIALIST [address] [place] [address] [place] [address] Referral ID Status Reason Start Date Expiration Date V isits Requested Visits Authorized [id number] Closed Auto-Generate d Referral 11/23/2024 12/23/2025 1 1 [facility] Reason for referral (narrative) Diagnostic Procedure Only (Urgent) - Closed Note Date & Type Note Facility Reason for referral (narrati ve) Specialty Diagnoses / Procedures Referred By Contac t Referred To Contact XR IMAGING Diagnoses Rib pain Procedures XR RIBS/CHEST 3V AP RIB/OBLS/CXR LEFT RADEX RIBS UNI W/POSTEROANT CH MINIMUM 3 VIEWS Jaymie Rees APRN.DATA PROCESSING SPECIALIST [address] [place] [address] [place] [address] Referral ID Status Reason Start Date Expiration Date V isits Requested Visits Authorized [id number] Closed Auto-Generate d Referral 11/23/2024 12/23/2025 1 1 [facility] Reason for visit Narrative Diagnostic Procedure Only (Urgent) - Closed Note Date & Type Note Facility Reason for visit Narrative Specialty Diagnoses / Procedures Referred By Contac t Referred To Contact XR IMAGING Diagnoses Rib pain Procedures XR RIBS/CHEST 3V AP RIB/OBLS/CXR LEFT RADEX RIBS UNI W/POSTEROANT CH MINIMUM 3 VIEWS Jaymie Rees APRN.DATA PROCESSING SPECIALIST [address] [place] [address] [place] [address] Referral ID Status Reason Start Date Expiration Date V isits Requested Visits Authorized [id number] Closed Auto-Generate d Referral 11/23/2024 12/23/2025 1 1 [facility] Chief Complaint and Reason for Visit Chief Complaint ABDOMINAL PAIN Advance Directives No Advanced Directives Records Found Advance Directive Response Recorded Date/ Time Living Will Yes August 18 10:58am Power of Communications Tower Technician Yes August 18 022 10:58am Name of Medical Power of Communications Tower Technician MENG- August 18, 2022 10:58am Summary Purpose Family History No Family History Records FoundNo Family History Records Found Additional Source Comments Goals (unrecognized section and content) Goals may be documented in a n alternate section (unrecognized sect ion and content) No Status Records FoundNo Status Records Found INFORMATION SOURCE (unrecogn ized section and content) DATE CREATED AUTHOR 11/17/2022 Yolanda [facility] DATE CREATED AUTHOR AUTHOR'S ORGANTORSTEN ATION 11/28/2024 [facility] Source Comments (unrecognize d section and content) In the event this informatio n is protected by the Federal Confidentiality of Alcohol and Drug Abuse Patient Records regulations: The Federal rules restrict any use of the information to criminally investigate or prosecute any alcohol or drug abuse patient.[facility] the event this information is protected by the Federal Confidentiality of Alcohol and Drug Abuse Patient Records regulations: The Federal rules restrict any use of the information to criminally investigate or prosecute any alcohol or drug abuse patient.[facility] Reason for Visit (unrecogniz ed section and content) Reason Comments Fall Fell from back of tr uck and landed on L side x4 days Care Teams (unrecognized sec tion and content) Director Of Religious Activities Relationship Specialty Start Date End Date Dung Tyler DO [address] [place] [address] PCP - General Family Medicine 11/23/24 Director Of Religious Activities Relationship Specialty Start Date End Date Dung Tyler DO [address] [place] [address] PCP - General Family Medicine 11/23/24 FOR [...] BE BASED ON THE PRIMARY CLINICAL RECORDS. [facility] [employer] [facility]. provides no warranty or guarantee of the accuracy or completeness of information in this document.
[2025-10-20] MEDS: 0.9% Normal Saline (1000mL) 1,000 ML 125 ML IV ×2 (13:57→21:45)
[2025-10-20] MEDS: 0.9% Saline Lock 10 ML Syringe IV (20:34)
[2025-10-20] MEDS: Polyethylene Glycol 3350 17 GM PACKET PO (21:44)
[2025-10-20] MEDS: Senna/Docusate Sodium 1 Tablet 2 TABLET PO (21:44)
[2025-10-21] MEDS: 0.9% Saline Lock 10 ML Syringe IV ×4 (00:18→22:04)
[2025-10-21 02:30] VITALS: BP 156/86; PULSE 84; RESP 18; TEMP 36.4; O2SAT 97
[2025-10-21 06:41] LABS: Hematocrit 41.8 % (40-54); Hemoglobin 14.0 g/dL (13.0-16.5); Immature Granulocytes Count 0.060 X10^3/uL (0.0-0.0); Mean Corp Hgb Conc 33.5 g/dL (32-36); Mean Corpuscular Volume 86.0 fL (80-94); Mean Platelet Vol. 10.3 fl (6.2-12.0); NRBC Flagged by Analyzer 0 % (0-5); POSITIVE DIFFERENTIAL YES; Platelet Count 266 K/mm3 (150-450); RBC Distribution Width CV 13.8 % (11.6-14.6); RBC Distribution Width SD 42.8 fl (35.1-43.9); Red Blood Count 4.86 M/mm3 (4.6-6.2); White Blood Count 10.9 K/mm3 (4.4-11.0)
[2025-10-21 07:09] LABS: Anion Gap 12 (5-15); BUN 20 mg/dL (4-19); BUN/Creat Ratio 19.4 RATIO (10-20); Calcium,Total 8.3 mg/dL (7.6-11.0); Carbon Dioxide 23.9 mmol/L (21.0-32.0); Chloride 105 mmol/L (98-108); Estimated Creatinine Clearance 65.33 ml/min (50-250); Glucose 132 mg/dL (70-99); Potassium 4.7 mmol/L (3.3-5.1)
[2025-10-21 08:18] VITALS: BP 153/88; PULSE 90; RESP 18; TEMP 36.3; O2SAT 97
[2025-10-21] MEDS: Lidocaine 5% Patch 1 PATCH TOPICAL (09:11)
[2025-10-21] MEDS: Senna/Docusate Sodium 1 Tablet 2 TABLET PO ×2 (09:11→22:03)
[2025-10-21] MEDS: Polyethylene Glycol 3350 17 GM PACKET PO (09:11)
--- NOTE | 2025-10-21 11:31 | PN_ITS ---
Subjective Subjective Patient seen and examined with his nurse at his bedside. He still complains of pain in his left lower extremity. He is unable to ambulate due to the pain. Review of systems otherwise negative. He has remained hemodynamically stable. Objective Data Objective Data Vital Signs: Vital Signs Temp Pulse Resp BP Pulse Ox O2 Del Method 97.3 F L 90 18 153/88 H 97 Room Air 10/21/25 08:18 10/21/25 08:18 10/21/25 08:18 10/21/25 08:18 10/21/25 08:18 10/21/25 08:18 Oxygen Delivery Method Room Air Weight: 157 lb 12.8 oz Body Mass Index (BMI) 21.4 Intake & Output: Intake and Output for Last 24 Hours 10/19/25 10/20/25 10/21/25 23:59 23:59 23:59 Intake Total 1975 / 2275 1550 / 1550 Output Total 1200 / 1200 Balance 1974 / 167 350 / 350 Lab / Micro Data 10/21/25 05:20 10/21/25 05:20 Labs: Laboratory Results - last 24 hr 10/21/25 05:20: WBC 10.9, RBC 4.86, Hgb 14.0, Hct 41.8, MCV 86.0, MCH 28.8, MCHC 33.5, RDW Std Deviation 42.8, RDW Coeff of Stuart 13.8, Plt Count 266, MPV 10.3, Immature Gran % (Auto) 0.500, Neut % (Auto) 92.6 H, Lymph % (Auto) 4.9 L, [place] % (Auto) 1.9, Eos % (Auto) 0.0, Baso % (Auto) 0.1, Absolute Neuts (auto) 10.1 H, A bsolute Lymphs (auto) 0.54 L, Nucleated RBC % 0, Sodium 141, Potassium 4.7, Chloride 105, Carbon Dioxide 23.9, Anion Gap 12, BUN 20 H, Creatinine 1.05, Estim Creat Clear Calc 65.33, Est GFR (MDRD) Non-Af 76, BUN/Creatinine Ratio 19.4, Glucose 132 H, Calcium 8.3 Radiography Diagnostic Testing: Radiology Impression Lumbar Spine MRI 10/20/25 11:34 IMPRESSION: 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 General Appearance: cooperative HEENT normocephalic, head/scalp atraumatic, hearing grossly normal bilaterally, moist oral mucous membranes and oropharynx normal Eyes EOMs intact bilaterally Neck supple Resp normal respiratory effort, normal air movement, no use of accessory muscles and clear to auscultation bilaterally Cardio regular rate, regular rhythm, S1 normal heart sound, S2 normal heart sound and no murmurs GI normal to inspection, nondistended, normoactive bowel sounds, soft to palpation and non-tender Extremity normal to inspection, normal capillary refill and no clubbing, cyanosis or edema Neuro oriented x3 Neuro Narrative: has some mild weakness in LLE, has pain with straight leg raising test of LLE Sensorium / Orientation: awake and alert Psych affect normal Appearance: appropriate Assessment & Plan Assessment/Plan (1) Left sided sciatica: (2) Intractable neuropathic pain of left lower extremity: PLAN: Plan #Debility and weakness due to LLE sciatica * admitted with a complaint of left lower extremity pain and difficulty with ambulation * initial CT abdomen and pelvis showed a 9mm stone at the left ureteropelvic junction causing moderate left hydronephrosis and a 3mm stone at the midple of the left kidney, and a 4mm stone at the upper pole of hte left kidney. * he does not have any irnary or fecal incontinence * MRI of the lumbar spine showed left paracentral extrusion at L5-S1 with left S1 nerve compression * admit to med surg * PT/OT consult. PO tylenol, IV toradol, dilaudid prn for pain * On gabapentin. Will also order flexeril and IV solumedrol to help with severe pain. * Consult pain management * fall precautions * #Kidney stone with hydronephrosis * CT abdomen and pelvis showed a 9mm stone at the left ureteropelvic junction causing moderate left hydronephrosis and a 3 mm stone at the mid pole of the left kidney and a 4 mm evaluable pole of the left kidney * follow up with urology on outpatient basis. * Urinalysis showed no evidence of UTI. * Started on Flomax * DVT prophylaxis: lovenox CODE STATUS: Full code * Charges/Coding Visit Charges Inpatient E&M: 17671 Subs Hosp L2
[2025-10-21 14:33] VITALS: BP 129/85; PULSE 92; RESP 18; TEMP 36.6; O2SAT 97
[2025-10-21 20:00] VITALS: BP 149/84; PULSE 80; RESP 18; TEMP 36.4; O2SAT 96
[2025-10-22] MEDS: 0.9% Saline Lock 10 ML Syringe IV ×4 (00:57→21:42)
[2025-10-22 02:30] VITALS: BP 145/94; PULSE 94; RESP 18; TEMP 36.7; O2SAT 98
[2025-10-22 06:56] LABS: Hematocrit 44.4 % (40-54); Hemoglobin 14.6 g/dL (13.0-16.5); Immature Granulocytes Count 0.160 X10^3/uL (0.0-0.0); Mean Corp Hgb Conc 32.9 g/dL (32-36); Mean Corpuscular Volume 86.0 fL (80-94); Mean Platelet Vol. 10.1 fl (6.2-12.0); NRBC Flagged by Analyzer 0 % (0-5); Platelet Count 313 K/mm3 (150-450); RBC Distribution Width CV 13.6 % (11.6-14.6); RBC Distribution Width SD 42.4 fl (35.1-43.9); Red Blood Count 5.16 M/mm3 (4.6-6.2); White Blood Count 16.7 K/mm3 (4.4-11.0)
[2025-10-22 07:23] LABS: Anion Gap 12 (5-15); BUN 25 mg/dL (4-19); BUN/Creat Ratio 20.3 RATIO (10-20); Calcium,Total 8.9 mg/dL (7.6-11.0); Carbon Dioxide 22.8 mmol/L (21.0-32.0); Chloride 102 mmol/L (98-108); Estimated Creatinine Clearance 56.69 ml/min (50-250); Glucose 135 mg/dL (70-99); Potassium 4.0 mmol/L (3.3-5.1)
[2025-10-22 08:21] VITALS: BP 156/89; PULSE 88; RESP 16; TEMP 36.8; O2SAT 97
[2025-10-22] MEDS: Senna/Docusate Sodium 1 Tablet 2 TABLET PO ×2 (08:27→21:39)
[2025-10-22] MEDS: Lidocaine 5% Patch 1 PATCH TOPICAL (08:27)
[2025-10-22] MEDS: Polyethylene Glycol 3350 17 GM PACKET PO (08:27)
--- NOTE | 2025-10-22 10:22 | CASEMGMT ---
Dx:debility d/t lower back pain LACE:1 6-Clicks:24 Medical record reviewed and patient evaluated for identification of discharge planning needs. Based on this review, at this time criteria are not present to indicate a need for discharge planning. Will remain available to assist with discharge planning needs as identified or requested. No CM c/s. No OT recommended. PT recommended additional therapy to keep pt mobile. Pt declined stating he just needed his pain to be under control. Pain mgmt c/s. Pt has kidney stones that he will follow up as an OP to manage.
[2025-10-22 14:22] VITALS: BP 152/77; PULSE 92; RESP 18; TEMP 36.7; O2SAT 95
--- NOTE | 2025-10-22 14:40 | CHAPLAIN ---
Type of Pastoral Visit _x__ Initial Visit ___ Follow-up Visit ___ On-call Visit ___ General Patient Visit ___ Spiritual Assessment ___ Family Conference ___ Bereavement ___ Rapid Response ___ Code Blue ___ Other (describe below) Pastoral Care Referral From _x__ Patient ___ Family ___ Nurse ___ Physician ___ Body Service Team Member ___ Business Services Sales Representative ___ Other (describe below) Sacrament/Intervention _x__ Active listening ___ Anointing ___ Baptist ___ Bereavement ___ Communion _x__ Earnestine exploration ___ _x__ Life review _x__ Prayer ___ Reconciliation ___ Sacrament of Sick ___ Supportive presence ___ Wedding ___ Other (describe below) Pastoral Comments patient and spouse are in the room; pt is able to explain his situation and that he is getting some relief now; pt discovered that there were two issues causing pain and that he will address the second one at a later time; pt and spouse talk about their past experiences in a zoroastrian and with a traffic reporter friend; pt welcomes someone to talk with, to give expression of thoughts and feelings, and for prayer
--- NOTE | 2025-10-22 19:13 | PCM.PN.HOSP ---
Subjective Subjective Patient was seen and examined today, he still complains of pain radiating down his left leg. Patient states that a few years ago he had an epidural injection, he had what he described as a panic attack after the procedure was completed, he is due to see pain management this afternoon, I told him that if he had to undergo a nerve block or an epidural it would be in the operating room and he would be given sedation by anesthesia. Patient is currently on IV corticosteroids, Celebrex, narcotics, and Neurontin. Patient's is in the room at the time of my examination. Objective Data Objective Data Vital Signs: Vital Signs Temp Pulse Resp BP Pulse Ox O2 Del Method 98.1 F 92 18 152/77 H 95 Room Air 10/22/25 14:22 10/22/25 14:22 10/22/25 14:22 10/22/25 14:22 10/22/25 14:22 10/22/25 14:22 Oxygen Delivery Method Room Air Weight: 71.577 kg Body Mass Index (BMI) 21.4 Intake & Output: Intake and Output for Last 24 Hours 10/20/25 10/21/25 10/22/25 23:59 23:59 23:59 Intake Total 1974 / 5 1790 / 2140 700 / 700 Output Total 1400 / 1400 Balance 1974 1675 390 / 740 700 / 700 Lab / Micro Data 10/22/25 06:23 10/22/25 06:23 Labs: Laboratory Results - last 24 hr 10/22/25 06:23: WBC 16.7 H, RBC 5.16, Hgb 14.6, Hct 44.4, MCV 86.0, MCH 28.3, MCHC 32.9, RDW Std Deviation 42.4, RDW Coeff of Stuart 13.6, Plt Count 313, MPV 10.1, Immature Gran % (Auto) 1.000 H, Neut % (Auto) 87.3 H, Lymph % (Auto) 5.7 L, [place] % (Auto) 5.8, Eos % (Auto) 0.1, Baso % (Auto) 0.1, Absolute Neuts (auto) 14.6 H, Absolute Lymphs (auto) 0.95, Nucleated RBC % 0, Sodium 137, Potassium 4.0, Chloride 102, Carbon Dioxide 22.8, Anion Gap 12, BUN 25 H, Creatinine 1.21 H, Estim Creat Clear Calc 56.69, Est GFR (MDRD) Non-Af 64, BUN/Creatinine Ratio 20.3 H, Glucose 135 H, Calcium 8.9 Physical Exam Const alert, oriented x3, no apparent distress, average body habitus and healthy appearing General Appearance: cooperative, well kempt and well developed Orientation / Consciousness: awake, oriented to person, oriented to place and oriented to time HEENT normocephalic and moist oral mucous membranes Eyes PERRL, EOMs intact bilaterally and conjunctivae normal Neck supple, no JVD, thyroid normal and no carotid bruits General: trachea midline Resp normal respiratory effort, no retractions, no use of accessory muscles and clear to auscultation bilaterally Auscultation: Negative for rales, rhonchi or wheezes Cardio regular rate, regular rhythm, S1 normal heart sound, S2 normal heart sound, no murmurs, no rub and no gallops GI normal to inspection, nondistended, normoactive bowel sounds, soft to palpation, non-tender and non-distended Extremity no clubbing, cyanosis or edema Skin no rashes or lesions noted General Skin Exam: no breakdown Neuro oriented x3, CN's II-XII intact bilaterally, moves all extremities, no focal motor deficits and no sensory deficits noted Sensorium / Orientation: awake and alert Speech: speech normal Psych affect normal Assessment & Plan Assessment/Plan (1) Left sided sciatica: PLAN: Plan 1. 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
[2025-10-22 21:31] VITALS: BP 122/73; PULSE 88; RESP 16; TEMP 36.9; O2SAT 95
[2025-10-23] VITALS (11 sets, daily range): BP systolic 116–156; BP diastolic 72–96; PULSE 71–83; RESP 15–20; TEMP 36.1–36.9; O2SAT 92–98; BMI 21.4
[2025-10-23] MEDS: 0.9% Saline Lock 10 ML Syringe IV ×4 (04:09→21:34)
[2025-10-23] MEDS: Lactated Ringers 1,000 ML 15 ML IV (13:00)
--- NOTE | 2025-10-23 13:09 | PCM.PRE.AN2 ---
ASA Classification* ASA Classification ASA Classification: 2 Assessment & Plan Anesthesia* Anesthesia Assessment Anesthesia Assessment: Discussed sedation and/or anesthesia options, risks, benefits, and alternatives with patient/parents/legal guardian/POA. Questions invited. The patient/parents/legal guardian/POA seems to understand and agrees to proceed with anesthesia plan. Reviewed the physical assessment, medical history, allergy history and patient home medications list prior to surgery/procedure/anesthetic and documented any changes. Performed airway and anesthesia risk assessments. Anesthesia Type Anesthesia Type: MAC History Source History Obtained from:: Patient and Chart Anesthesia Focused Assessment* Temperature: 98.1 F Pulse Rate: 76 Blood Pressure: 142/89 Respiratory Rate: 16 Pulse Ox: 96 Oxygen Delivery Method: Room Air Airway Assessment Mouth opens: >3 cm Mallampati Score: II Teeth Condition: Intact Neck Range of motion (ROM): Full ROM Labs Anesthesia Preop lab: CBC WBC, (4.4-11.0) 16.7 K/mm3 H 10/22/25, 06:23 RBC, (4.6-6.2) 5.16 M/mm3 10/22/25, 06:23 Hgb, (13.0-16.5) 14.6 g/dL 10/22/25, 06:23 Hct, (40-54) 44.4 % 10/22/25, 06:23 Plt Count, (150-450) 313 K/mm3 10/22/25, 06:23 CHEMISTRY Potassium, (3.3-5.1) 4.0 mmol/L 10/22/25, 06:23 Sodium, (133-145) 137 mmol/L 10/22/25, 06:23 BUN, (4-19) 25 mg/dL H 10/22/25, 06:23 Creatinine, (0.70-1.20) 1.21 mg/dL H 10/22/25, 06:23 Glucose, (70-99) 135 mg/dL H 10/22/25, 06:23 TSH, (0.358-3.74) 0.84 uIU/mL 11/02/16, 10:31 COAG Pre-Assessment Diagnosis/Proposed Procedure Planned Operative Procedure(s): Epidural steroid injection lumbar L4-S1 Anesthesia History 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 When Was Last Pacemaker Check QUESTION #4 FULL TEXT: You/Your Family Experience fever (hyperthermia) with Anesthesia Last Oral Intake Last Oral intake: Last Oral Intake NPO since 00:01 10/23/25 09:02 Meds taken in AM with sips of No 10/23/25 09:02 water? Meds patient instructed to take am of surgery PONV PONV - endless bed drum sander: PONV - endless bed drum sander Female HX of Motion Sickness HX of N/V After Surgery Non-Smoker Duration of Surgery greater than 60 minutes Number of Risk Factors PONV Score Height & Weight Height & Weight: Anesthesia: Height & Weight Height 6 ft 10/23/25 09:02 Weight: 71.577 kg 10/23/25 09:02 Body Mass Index (BMI) 21.4 10/23/25 09:02 Respiratory Assessment Respiratory Assessment - endless bed drum sander: Respiratory Tract Infection Hx - endless bed drum sander Hx Respiratory Tract Infection No 10/23/25 09:02 STOP Sleep Apnea STOP Sleep Apnea - endless bed drum sander: STOP Sleep Apnea - endless bed drum sander Hx Hypertension No 10/21/25 10:40 Hx Sleep Apnea No 10/20/25 13:45 CPAP BIPAP Do you snore loudly (louder No 10/20/25 13:45 than talking or can be heard Do you often feel tired/ No 10/20/25 13:45 fatigued/ sleepy during daytime? Has anyone observed you stop No 10/20/25 13:45 breathing during sleep? STOP Results Negative 10/20/25 13:45 QUESTION #5 FULL TEXT : Do you snore loudly (louder than talking or can be heard through closed doors)? 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 Specify any problems Hx of Preganancy in last 3 N/A 10/20/25 13:45 Months Nurse Filling Out Transfusion [email or web address] 10/20/25 13:45 & Questions: Date: 10/20/25 10/20/25 13:45 Time: 13:47 10/20/25 13:45 Patient unable to answer at this time (ie. confused, unrespo /Reproduction History /Reproductive History - endless bed drum sander: /Reproductive Hx- endless bed drum sander Hx Now No 10/23/25 09:02 Gestational Age (in weeks): EDC: Hx Hx Para Hx Section SAB Does the father of the baby or his family experience fever w Father of the baby Malignant Hypertension history comment Active Medications Active Medications: Current Medications Generic Name Dose Route Start Last Admin Trade Name Freq PRN Reason Stop Dose Admin Acetaminophen 650 mg 10/20/25 13:31 10/21/25 10:23 Acetaminophen 325 Mg Tablet PO 650 mg Q6H PRN PRN Administration Pain 1-10 Or Fever >100.7 Cyclobenzaprine HCl 5 mg 10/20/25 13:31 10/22/25 18:33 Cyclobenzaprine Hcl 5 Mg Tablet PO 5 mg Q8H PRN PRN Administration spasms/musculoskeletal pain Enoxaparin Sodium 40 mg 10/21/25 10:00 10/22/25 08:27 Enoxaparin 40 Mg/0.4 Ml Syringe SC 40 mg On Hold: 10/22/25 17:11 DAILY CHARITO Administration Comment: Hold for Lumbar epidural per Dr. Luque Gabapentin 300 mg 10/20/25 14:00 10/23/25 05:58 Gabapentin 300 Mg Capsule PO Not Given TID CHARITO Hydromorphone HCl 0.5 - 1 mg 10/20/25 13:31 10/21/25 05:26 Hydromorphone 1 Mg/Ml Syringe IV 1 mg Q3H PRN PRN Administration Pain Score 6-10 Lactated Ringer's 1,000 mls @ 15 mls/hr 10/23/25 13:00 IV .Q48H CHARITO Ketorolac Tromethamine 15 mg 10/20/25 13:57 10/23/25 11:50 Ketorolac 15 Mg/Ml Vial IV 10/25/25 13:58 15 mg Q6H PRN PRN Administration Pain Score 1-10 Lidocaine 1 patch 10/21/25 10:00 10/23/25 10:37 Lidocaine 5% Patch TOPICAL Not Given DAILY [facility] Protocol Methylprednisolone Sodium Succinate 40 mg 10/20/25 14:00 10/23/25 05:55 Methylprednisolone Sod Succ 40 Mg/Ml Vial IV 40 mg Q8 CHARITO Administration Metoclopramide HCl 5 mg 10/20/25 06:00 10/21/25 10:23 Metoclopramide 10 Mg/2 Ml Vial IV 5 mg Q6H PRN PRN Administration NAUSEA/VOMITING Ondansetron HCl 4 mg 10/20/25 13:31 10/20/25 20:34 Ondansetron 4 Mg/2 Ml Vial IV 4 mg Q8H PRN PRN Administration NAUSEA/VOMITING Oxycodone HCl 5 mg 10/20/25 13:44 10/21/25 22:04 Oxycodone 5 Mg Tablet PO 5 mg Q6H PRN PRN Administration Pain Score 1-10 Polyethylene Glycol 17 gm 10/20/25 20:40 10/23/25 10:36 Polyethylene Glycol 3350 17 Gm Packet PO Not Given DAILY [facility] Senna/Docusate Sodium 2 tablet 10/20/25 20:40 10/23/25 10:37 Senna/Docusate Sodium 1 Tablet PO Not Given BID [facility] Sodium Chloride 10 - 40 ml 10/20/25 13:52 10/23/25 11:51 0.9% Saline Lock 10 Ml Syringe IV 10 ml UD PRN Administration SALINE FLUSH PFSH Medical History Kidney stones GERD (gastroesophageal reflux disease) Back pain Home Medications ?Medication ?Instructions ?Recorded ?Last Taken ?Type gabapentin 300 mg capsule 300 mg PO TID #30 caps 06/27/21 Unknown Rx oxycodone-acetaminophen 5 mg-325 1 tab PO Q6H PRN PRN pain 5 days 06/27/21 Unknown Rx mg tablet #20 TABLETS ketorolac 10 mg tablet 10 mg PO Q8H 3 days #9 tabs 10/17/25 Unknown Rx lidocaine 5 % topical patch 1 patch topical DAILY #15 ea 10/17/25 Unknown Rx (DermacinRx Lidocan) bisacodyl 5 mg tablet,delayed 5 mg PO QHS 2 days #4 tabs 10/20/25 Unknown Rx release (Dulcolax (bisacodyl)) ondansetron 4 mg disintegrating 4 mg PO Q8H PRN PRN Nausea #30 tabs 10/20/25 Unknown Rx tablet oxycodone-acetaminophen 5 mg-325 1 tab PO Q6H PRN pain 3 days #12 10/20/25 Unknown Rx mg tablet (Percocet) tabs polyethylene glycol 3350 17 17 g PO DAILY #238 grams 10/20/25 Unknown Rx gram/dose oral powder (Miralax) tamsulosin 0.4 mg capsule 0.4 mg PO DAILY #7 caps 10/20/25 Unknown Rx Allergy/AdvReac Type Severity Reaction Status Date / Time No Known Allergies Allergy Verified 10/20/25 05:48 Surgical History History of hernia repair Social History Smoking Status: Never smoker alcohol intake: never Review of Systems (Anesthesia) ROS Narrative System reviewed and no additional complaints, except as documented.
--- NOTE | 2025-10-23 13:35 | NURSING ---
1255-off unit via bed for procedure
--- NOTE | 2025-10-23 14:26 | RAD_ITS ---
PROCEDURE: LUMBAR SPINE 2 OR 3 VIEWS 10/23/2025 REASON FOR EXAM: LUMBAR INJECTION TECHNIQUE: Procedure Code: RADSPLL Modality: DX Procedure: LUMBAR SPINE 2 OR 3 VIEWS COMPARISON: Lumbar spine study dated 10/20/2025 FINDINGS: Three views of the lumbar spine were obtained utilizing fluoroscopy. A radiopaque needle tip is projected over the L5-S1 level. 5.8 seconds of fluoro time was provided. The cumulative dose was 1.54 mGy RAD/Lumbar Spine 2 or 3 Views IMPRESSION: Three views of the lumbar spine were obtained utilizing fluoroscopy. A radiopaque needle tip is projected over the L5-S1 level. 5.8 seconds of fluoro time was provided. The cumulative dose was 1.54 mGy Reading Location: [id number]
[2025-10-23] MEDS: Lactated Ringers 1,000 ML 1000 ML IV (14:30)
[2025-10-23] MEDS: Lidocaine 0.5% (50 ml) 50 ML Vial OPERA.SITE (14:35)
--- NOTE | 2025-10-23 14:47 | PCM.POST.ANE ---
Anesthesia: Postop Eval I Current Vital Signs Temperature: 97.4 F Pulse Rate: 81 Blood Pressure: 116/72 Respiratory Rate: 20 Pulse Ox: 97 Oxygen Delivery Method: Room Air Assessment Airway patent: Yes Spontaneous unlabored respirations: Yes Mental status: Awake and Calm nausea: No Vomiting: No Anesthesia Complication: No Fluid Hydration Crystalloid volume administer (ml): 500 Total IV fluid infused: 500 Progress Note Anesthesia document: Postop Eval 1 completed: Yes
--- NOTE | 2025-10-23 15:37 | POSTOPAN2_ITS ---
Anesthesia Postop Eval I Sum Postop Eval Completion status Anesthesia document: Postop Eval 1 completed: Yes Anesthesia Postop Eval I Summary Anesthesia Postop Eval I Summary: Anesthesia Postop Eval I: Assessment Summary Airway patent Yes 10/23/25 14:48 [email or web address] Spontaneous unlabored Yes 10/23/25 14:48 [email or web address] respirations Mental status Awake,Calm 10/23/25 14:48 [email or web address] nausea No 10/23/25 14:48 [email or web address] [email or web address] Vomiting No 10/23/25 14:48 [email or web address] [email or web address] Anesthesia Postop Eval I: Fluid Summary Crystalloid volume administer 500 10/23/25 14:48 [email or web address] (ml) Colloids volume administered ( ml) Blood Product volume administered (ml) Total IV fluid infused 500 10/23/25 14:48 [email or web address] Anesthesia Postop Eval I: Summary Notes Anesthesia Complication No 10/23/25 14:48 [email or web address] Anesthesia Complication Comment: Post-operative progress note Anesthesia: Postop Eval II Evaluation Mental status: Awake and Calm Pain Level: 1 nausea: No Vomiting: No Complications Anesthesia Complication: No
--- NOTE | 2025-10-23 15:37 | PCM.POSTANE2 ---
Anesthesia Postop Eval I Sum Postop Eval Completion status Anesthesia document: Postop Eval 1 completed: Yes Anesthesia Postop Eval I Summary Anesthesia Postop Eval I Summary: Anesthesia Postop Eval I: Assessment Summary Airway patent Yes 10/23/25 14:48 INSURANCE [email or web address] Spontaneous unlabored Yes 10/23/25 14:48 INSURANCE ADMINISTRATIVE [email or web address] respirations Mental status Awake,Calm 10/23/25 14:48 INSURANCE ADMINISTRATIVE [email or web address] nausea No 10/23/25 14:48 INSURANCE ADMINISTRATIVE [email or web address] Vomiting No 10/23/25 14:48 INSURANCE ADMINISTRATIVE [email or web address] Anesthesia Postop Eval I: Fluid Summary Crystalloid volume administer 500 10/23/25 14:48 INSURANCE ADMINISTRATIVE [email or web address] (ml) Colloids volume administered ( ml) Blood Product volume administered (ml) Total IV fluid infused 500 10/23/25 14:48 INSURANCE ADMINISTRATIVE [email or web address] Anesthesia Postop Eval I: Summary Notes Anesthesia Complication No 10/23/25 14:48 INSURANCE ADMINISTRATIVE [email or web address] Anesthesia Complication Comment: Post-operative progress note Anesthesia: Postop Eval II Evaluation Mental status: Awake and Calm Pain Level: 1 nausea: No Vomiting: No Complications Anesthesia Complication: No
--- NOTE | 2025-10-23 18:35 | PN.HOSP_ITS ---
Subjective Subjective Patient was seen and examined today, he underwent an epidural steroid injection at L4-S1 Objective Data Objective Data Vital Signs: Vital Signs Temp Pulse Resp BP Pulse Ox O2 Del Method 97.5 F L 77 15 156/96 H 98 Room Air 10/23/25 15:54 10/23/25 15:54 10/23/25 15:54 10/23/25 15:54 10/23/25 15:54 10/23/25 15:54 Oxygen Delivery Method Room Air Weight: 71.577 kg Body Mass Index (BMI) 21.4 Intake & Output: Intake and Output for Last 24 Hours 10/21/25 10/22/25 10/23/25 23:59 23:59 23:59 Intake Total 1790 / 2140 700 / 1100 400 / 400 Output Total 1400 / 1400 1050 / 1050 Balance 390 / 740 700 / 750 -650 / -650 Lab / Micro Data 10/22/25 06:23 10/22/25 06:23 Radiography Diagnostic Testing: Radiology Impression Lumbar Spine X-Ray 10/23/25 14:26 IMPRESSION: Three views of the lumbar spine were obtained utilizing fluoroscopy. A radiopaque needle tip is projected over the L5-S1 level. 5.8 seconds of fluoro time was provided. The cumulative dose was 1.54 mGy Reading Location: [facility] Physical Exam Narrative alert, oriented x3, no apparent distress, average body habitus and healthy appearing General Appearance: cooperative, well kempt and well developed Orientation / Consciousness: awake, oriented to person, oriented to place and oriented to time HEENT normocephalic and moist oral mucous membranes Eyes PERRL, EOMs intact bilaterally and conjunctivae normal Neck supple, no JVD, thyroid normal and no carotid bruits General: trachea midline Resp normal respiratory effort, no retractions, no use of accessory muscles and clear to auscultation bilaterally Auscultation: Negative for rales, rhonchi or wheezes Cardio regular rate, regular rhythm, S1 normal heart sound, S2 normal heart sound, no murmurs, no rub and no gallops GI normal to inspection, nondistended, normoactive bowel sounds, soft to palpation, non-tender and non-distended Extremity no clubbing, cyanosis or edema Skin no rashes or lesions noted General Skin Exam: no breakdown Neuro oriented x3, CN's II-XII intact bilaterally, moves all extremities, no focal motor deficits and no sensory deficits noted Sensorium / Orientation: awake and alert Speech: speech normal Psych affect normal Assessment & Plan Assessment/Plan (1) Left sided sciatica: PLAN: Plan 1. 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- patient had an epidural steroid injection, he will be reevaluated for possible discharge tomorrow, patient will be seen by PT and OT #2 BPH-patient is on Flomax #3 osteoarthritis of the lumbar spine-this is mild at this point Total clinical time spent by myself addressing the patient's medical issues, reviewing all the data, and collaborating with patient's care team: 35-minutes Charges/Coding Visit Charges Inpatient E&M: 55087 Subs Hosp L2
[2025-10-24 03:31] VITALS: BP 137/89; PULSE 79; RESP 16; TEMP 36.8; O2SAT 95
[2025-10-24] MEDS: 0.9% Saline Lock 10 ML Syringe IV ×2 (05:53→14:46)
[2025-10-24 08:00] VITALS: BP 146/93; PULSE 78; RESP 15; TEMP 36.8; O2SAT 96
[2025-10-24] MEDS: Lidocaine 5% Patch 1 PATCH TOPICAL (08:31)
[2025-10-24 14:00] VITALS: BP 145/80; PULSE 91; RESP 16; TEMP 36.6; O2SAT 97
--- NOTE | 2025-10-24 14:25 | CASEMGMT ---
Addendum entered by Araceli Newman 10/24/25 16:05: Provided pt with OP PT rx. Discussed with pt options for where he can receive OP therapy. Pt denies further needs. Addendum entered by Araceli Newman 10/24/25 15:16: Pt nurse notified RN KARLI that after RN CM left the room, pt stated he was interested in OP PT. Original Note: RN CM into pt room, pt sitting up in bed with nurse at bedside. Pt states his pain has improved. Discussed therapy with pt and pt declined at this time. Pt states he has a walker and if he needs any further needs at this time.
--- NOTE | 2025-10-24 16:09 | DCINST_ITS ---
Discharge Instructions DC O2, CPAP, BIPAP needs Home O2 Discharge instructions: No Dressing / Incision Discharge Activity: Return to Normal Activity and - (Do not lift greater than 10 pounds) Weight Bearing Status: Full weight bearing Follow Up Care Test Results: Test results from this visit will be discussed in further detail at your follow- up appointment, if applicable. Discharge Plan Admission Admit Date/Time: 10/21/25 14:54 Primary Reason for Your Visit: L5-S1 left paracentral disc extrusion with sciatica Attending Provider: Murphy Melissa Primary Care Provider: Murphy Tyler Consulting Providers: Angelique Escudero; James Luque Discharge Orders/Prescriptions Prescriptions: New bisacodyl [Dulcolax (bisacodyl)] 5 mg tablet,delayed release (DR/EC) 5 mg PO QHS 2 Days Qty: 4 0RF oxycodone 5 mg Tablet 5 - 10 mg PO Q6H PRN PRN (Reason: Pain Score 1-10) 7 Days Qty: 45 0RF sennosides-docusate sodium [Stimulant Laxative Plus] 8.6-50 mg Tablet 2 tab PO BID Qty: 0 0RF prednisone 20 mg tablet 20 mg PO BID Qty: 20 0RF Rx Instructions: 1 twice a day for 5 days, then 1/day for 10 days Continued gabapentin 300 mg capsule 300 mg PO TID Qty: 30 0RF Discontinued oxycodone-acetaminophen [oxycodone-acetaminophen] 1 TABLET tablet 1 tab PO Q6H PRN PRN (Reason: pain) 5 Days Qty: 20 0RF ketorolac 10 mg tablet 10 mg PO Q8H 3 Days Qty: 9 0RF lidocaine [DermacinRx Lidocan] 5 % adhesive patch,medicated 1 patch topical DAILY Qty: 15 0RF Rx Instructions: leave on most painful area for up to 12 hrs Referrals / Follow Up: James Luque MD [Med Staff - Active Staff, Pain Management] - See Referral Note Referral Note: In 1 month, call for an appointment Santo Verdin MD [Med Staff - Active Staff, Orthopedics] - See Referral Note Referral Note: His office should call you to schedule an appointment, if you do not hear from them by this Wednesday, call his office to schedule an appointment for follow-up William Silva MD [Med Staff - Active Staff, Urology] - See Referral Note Referral Note: Office will call you for an appointment, contact his office by Wednesday if you do not hear from them Murphy Tyler, [Primary Care Provider, [facility]] Disposition Disposition (needs filled in before D/C Order can be placed): Home, Self Care
--- NOTE | 2025-10-24 16:46 | PCM.CONS.GEN ---
Assessment & Plan Assessment/Plan (1) Renal colic on left side: (2) Left flank pain: PLAN: Left-sided kidney stone patient will go home today my office will call in for instructions to get him set up for an outpatient treatment of the stone HPI Consult Data Date of Consult: 10/24/25 HPI Narrative Reason for Consultation: Left kidney stone HPI Narrative: HILDA PASTOR, is a 70 male who presented to the hospital with left-sided pain was found to have sciatica but then also had a CAT scan done that found an incidental large partially obstructing stone in the left UPJ causing mild left hydronephrosis but at this point is not having any pain in the left side no fevers or chills or signs of infection he is stable he has had kidney stones before but usually passes them but the stone is too big to pass spoke with the patient today regarding the stone and what to get him set up as an outpatient to treat the stone he is planning to go home today since his pain is under control after an epidural. COUNT INCLUDES THE [facility] Medical History Kidney stones GERD (gastroesophageal reflux disease) Back pain Home Medications ?Medication ?Instructions ?Recorded ?Last Taken ?Type gabapentin 300 mg capsule 300 mg PO TID #30 caps 06/27/21 Unknown Rx oxycodone-acetaminophen 5 mg-325 1 tab PO Q6H PRN PRN pain 5 days 06/27/21 Unknown Rx mg tablet #20 TABLETS ketorolac 10 mg tablet 10 mg PO Q8H 3 days #9 tabs 10/17/25 Unknown Rx lidocaine 5 % topical patch 1 patch topical DAILY #15 ea 10/17/25 Unknown Rx (DermacinRx Lidocan) bisacodyl 5 mg tablet,delayed 5 mg PO QHS 2 days #4 tabs 10/20/25 Unknown Rx release (Dulcolax (bisacodyl)) ondansetron 4 mg disintegrating 4 mg PO Q8H PRN PRN Nausea #30 tabs 10/20/25 Unknown Rx tablet oxycodone-acetaminophen 5 mg-325 1 tab PO Q6H PRN pain 3 days #12 10/20/25 Unknown Rx mg tablet (Percocet) tabs polyethylene glycol 3350 17 17 g PO DAILY #238 grams 12/06/25 Unknown Rx gram/dose oral powder (Miralax) tamsulosin 0.4 mg capsule 0.4 mg PO DAILY #7 caps 10/20/25 Unknown Rx Allergy/AdvReac Type Severity Reaction Status Date / Time No Known Allergies Allergy Verified 10/20/25 05:48 Surgical History History of hernia repair Social History Smoking Status: Never smoker alcohol intake: never Physical Exam Const alert and oriented x3 General Appearance: cooperative HEENT normocephalic, head/scalp atraumatic, EAC's normal and TM's normal bilaterally Eyes PERRL and EOMs intact bilaterally Pupil: sluggish Neck no lymphadenopathy, supple and no JVD General: trachea midline Lymph Lymphatic: no lymphadenopathy noted, lymphedema and lymphadenopathy Resp normal respiratory effort, normal air movement and clear to auscultation bilaterally Cardio regular rate, regular rhythm and peripheral pulses 2+ throughout GI soft to palpation, non-tender and non-distended Extremity normal capillary refill and no clubbing, cyanosis or edema General Extremity: no tenderness to palpation of joints or extremities Skin no rashes or lesions noted General Skin Exam: turgor normal Lesions: no lesions Rashes: no rashes Neuro CN's II-XII intact bilaterally Speech: speech normal Motor Exam: strength 5/5 throughout; Negative for general weakness Psych thought process normal, cooperative and affect normal Appearance: appropriate Lab / Micro Data 10/22/25 06:23 10/22/25 06:23 Imaging Radiology Impression Lumbar Spine X-Ray 10/23/25 14:26 IMPRESSION: Three views of the lumbar spine were obtained utilizing fluoroscopy. A radiopaque needle tip is projected over the L5-S1 level. 5.8 seconds of fluoro time was provided. The cumulative dose was 1.54 mGy Reading Location: [id number]
--- NOTE | 2025-10-24 17:09 | PCM.DC.SUM ---
Providers Date of Admission: 10/21/25 Date of Discharge: 10/24/25 Primary Care Physician: Dr. Murphy Tyler, DO Consultations 10/21/25 14:43 Consult: Pain Management Routine Consulting Provider: James Luque Reason for Consult: severe back pain, sciatica. Lumbar spinal stenosis EMERGENT Consult: No MD Notified: Yes Date Notified: 10/22/25 Time Notified: 08:50 Method of Notification: office Reason For Visit: DABILITY DUE TO LOWER BACK PAIN Diagnosis Discharge Diagnosis (1) Renal colic on left side: Status: Inactive Code(s): N23 - Unspecified renal colic (2) Left flank pain: Status: Inactive Code(s): R10.A2 - Flank pain, left side Plan 1. 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-patient had an epidural steroid injection, he will be reevaluated for possible discharge tomorrow, patient will be seen by PT and OT #2 BPH-patient is on Flomax #3 osteoarthritis of the lumbar spine-this is mild at this point #4 obstructing kidney stone in the left ureter Total clinical time spent by myself addressing the patient's medical issues, reviewing all the data, and collaborating with patient's care team: 35-minutes Medications at Discharge Home Medications gabapentin 300 mg capsule 300 mg PO TID #30 caps 06/27/21 bisacodyl 5 mg tablet,delayed release (Dulcolax (bisacodyl)) 5 mg PO QHS 2 days #4 tabs 10/20/25 oxycodone 5 mg tablet 5 - 10 mg (1 - 2 x 5 mg) PO Q6H PRN PRN Pain Score 1-10 7 days #45 tabs 10/24/25 prednisone 20 mg tablet 20 mg PO BID #20 tabs 10/24/25 sennosides 8.6 mg-docusate sodium 50 mg tablet (Stimulant Laxative Plus) 2 tab PO BID #0 tabs 10/24/25 Hospital Course Operations None Procedures - (L5-S1 epidural injection) Summary of Care Provided Minutes Spent on Discharge: 31 Hospital Course: This 70-year-old white male was seen in the emergency room at [facility] with complaints of left leg and left buttocks pain. Initially was worked up for a possible kidney stone with a CT scan of the abdomen and pelvis, there was noted to be a kidney stone in the left ureter that was causing some obstruction but the patient denied any flank pain. MRI was obtained which showed an L5-S1 left paracentral disc extrusion with left S1 nerve root compression. Patient was admitted to [place] [id number], he was given IV corticosteroids, he was seen by pain management and underwent an L5-S1 epidural injection. Patient had minimal relief from the injection however, his pain was under control however and he was able to be discharged on 10/24/2025. Prior to discharge, he was seen in consultation by Dr. Silva regarding his ureteral stone on the left and his office was to set the patient up with an appointment to get this taken care of. On 10/24/2025, patient was seen and examined: On examination he appeared in good health and spirits. Vital signs as documented. Skin warm and dry and without overt rashes. Neck without JVD, neck was supple, trachea midline, thyroid was normal. Lungs clear bilaterally, normal air movement was noted. Heart exam notable for regular rhythm, normal sounds and absence of murmurs, rubs or gallops. Abdomen unremarkable and without evidence of organomegaly, masses, or abdominal aortic enlargement. Bowel sounds are present, abdomen is not distended. Extremities nonedematous, no cyanosis was noted, no clubbing was noted. Neuro: Cranial nerves II through XII are grossly intact, no focal motor deficits were noted, sensation to light touch and pinprick intact, motor exam 5/5 throughout. Psych: Patient is alert and oriented x3, he does not appear anxious or depressed, he does not appear agitated. Patient was discharged home in stable condition on 10/24/2025. Weight / BMI Weight Weight: 71.577 kg Body Mass Index (BMI) 21.4 ABG / Lab / Microbiology Data 10/22/25 06:23 10/22/25 06:23 Radiography Diagnostic Testing: Radiology Impression Lumbar Spine X-Ray 10/23/25 14:26 IMPRESSION: Three views of the lumbar spine were obtained utilizing fluoroscopy. A radiopaque needle tip is projected over the L5-S1 level. 5.8 seconds of fluoro time was provided. The cumulative dose was 1.54 mGy Reading Location: [id number]/C Instructions Weight Bearing Status: Full weight bearing DC O2, CPAP, BIPAP Needs Home O2 Discharge instructions: No Meaningful Use Info Meaningful Use Meaningful Use Diagnoses (Choose all that apply): None applicable Discharge Plan Admission Admit Date/Time: 10/21/25 14:54 Primary Reason for Your Visit: L5-S1 left paracentral disc extrusion with sciatica Attending Provider: Murphy Melissa Primary Care Provider: Murphy Tyler Consulting Providers: Angelique Escudero; James Luque; William Silva Discharge Orders/Prescriptions Prescriptions: New bisacodyl [Dulcolax (bisacodyl)] 5 mg tablet,delayed release (DR/EC) 5 mg PO QHS 2 Days Qty: 4 0RF oxycodone 5 mg Tablet 5 - 10 mg PO Q6H PRN PRN (Reason: Pain Score 1-10) 7 Days Qty: 45 0RF sennosides-docusate sodium [Stimulant Laxative Plus] 8.6-50 mg Tablet 2 tab PO BID Qty: 0 0RF prednisone 20 mg tablet 20 mg PO BID Qty: 20 0RF Rx Instructions: 1 twice a day for 5 days, then 1/day for 10 days Continued gabapentin 300 mg capsule 300 mg PO TID Qty: 30 0RF Discontinued oxycodone-acetaminophen [oxycodone-acetaminophen] 1 TABLET tablet 1 tab PO Q6H PRN PRN (Reason: pain) 5 Days Qty: 20 0RF ketorolac 10 mg tablet 10 mg PO Q8H 3 Days Qty: 9 0RF lidocaine [DermacinRx Lidocan] 5 % adhesive patch,medicated 1 patch topical DAILY Qty: 15 0RF Rx Instructions: leave on most painful area for up to 12 hrs Referrals / Follow Up: James Luque MD [Med Staff - Active Staff, Pain Management] - See Referral Note Referral Note: In 1 month, call for an appointment Santo Verdin MD [Med Staff - Active Staff, Orthopedics] - See Referral Note Referral Note: His office should call you to schedule an appointment, if you do not hear from them by this Wednesday, call his office to schedule an appointment for follow-up William Silva MD [Med Staff - Active Staff, Urology] - See Referral Note Referral Note: Office will call you for an appointment, contact his office by Wednesday if you do not hear from them Murphy Tyler, [Primary Care Provider, Family Practice] Disposition Disposition (needs filled in before D/C Order can be placed): Home, Self Care Charges/Coding Visit Charges Inpatient E&M: 45559 Disch Hosp >30min
== END 2025-10-24 17:33 | disposition home or self-care (01) | DRG 552 ==
LOC: ED 11:46 → MS3 12:28
PROVIDERS: Anesthesiology Pain Medicine; Specialist/Technologist Athletic Trainer; Admitting Provider Student in an Organized Health Care Education/Training Program; Emergency Provider Emergency Medicine; PCP Family Medicine; Visit Provider Internal Medicine
PROC: 3E0S3BZ Introduction of Anesthetic Agent into Epidural Space, Percutaneous Approach (ICD-10-PCS; CPT 62322; principal; 2025-10-23 13:55)
DX: M51.27 Other intervertebral disc displacement, lumbosacral region (principal); N13.2 Hydronephrosis with renal and ureteral calculous obstruction; G62.9 Polyneuropathy, unspecified; M47.816 Spondylosis without myelopathy or radiculopathy, lumbar region; N40.0 Benign prostatic hyperplasia without lower urinary tract symptoms; Z79.899 Other long term (current) drug therapy
CPT/HCPCS: 36415; 64483; 72100; 72148; 74177; 80048; 80053; 81001; 85025; 97161; 97165; 97802; 99284; Q9967; A4216; J2405

== ENCOUNTER → 2025-10-31 | Outpatient (CLI) | payer MEDICARE, SELFPAY ==
--- NOTE | 2025-10-31 08:11 | RAD_ITS ---
PROCEDURE: L/S SPINE MIN 4 VIEWS 10/31/2025 REASON FOR EXAM: BACK PAIN TECHNIQUE: Procedure Code: [id number] Modality: DX Procedure: L/S SPINE MIN 4 VIEWS FINDINGS: No evidence of acute fracture or dislocation. Vertebral body heights are maintained. Mild degenerative changes of the visualized spine. Normal alignment. RAD/L/S Spine Min 4 Views IMPRESSION: Mild spondylosis. Reading Location: [facility]
--- NOTE | 2025-10-31 08:12 | EKG12_ITS ---
Test Reason : PREOP Blood Pressure : */* mmHG Vent. Rate : 88 BPM Atrial Rate : 78 BPM P-R Int : 118 ms QRS Dur : 60 ms QT Int : 354 ms P-R-T Axes : 76 53 70 degrees QTcB Int : 428 ms Sinus rhythm with Premature atrial complexes Increased R/S ratio in V1, consider early transition or posterior infarct Abnormal ECG When compared with ECG of 18-Aug-2022 12:24, Premature atrial complexes are now Present Confirmed by Chester Brown ([id number]), assistant film editor ANH PIERCE ([id number]) on 10/31/2025 10:16:59 AM Referred By: William Silva Confirmed By: Chester Brown
== END | disposition home or self-care (01) ==
LOC: PSN 08:07
PROVIDERS: PCP Family Medicine; Referring Provider Urology; Visit Provider Urology
DX: Z01.810 Encounter for preprocedural cardiovascular examination (principal); M54.9 Dorsalgia, unspecified
CPT/HCPCS: 72110; 93005